=== PATIENT | female | born 1940 | race Caucasian/White ===

== ENCOUNTER 2023-04-20 10:00 | Outpatient (RCR) | payer MEDICARE, OTHER, SELFPAY | END 2023-04-20 23:59 | disposition home or self-care (01) | LOC: RPT 10:00 | PROVIDERS: ATTENDING PHYSICIAN Family Medicine | DX: M25.512 Pain in left shoulder (principal); Z73.6 Limitation of activities due to disability | CPT/HCPCS: 97010; 97110; 97161 ==

== ENCOUNTER 2023-05-20 14:58 | Outpatient (RCR) | payer MEDICARE, OTHER, SELFPAY | END 2023-05-20 23:59 | disposition home or self-care (01) | LOC: RPT 14:58 | PROVIDERS: ATTENDING PHYSICIAN Family Medicine | DX: M25.512 Pain in left shoulder (principal); Z73.6 Limitation of activities due to disability | CPT/HCPCS: 97010; 97110; 97140 ==

== ENCOUNTER 2023-06-09 11:15 | Outpatient (RCR) | payer MEDICARE, OTHER, SELFPAY | END 2023-06-09 12:36 | disposition home or self-care (01) | LOC: RPT 11:15 | PROVIDERS: ATTENDING PHYSICIAN Family Medicine | DX: M25.512 Pain in left shoulder (principal); Z73.6 Limitation of activities due to disability | CPT/HCPCS: 97010; 97110; 97140 ==

== ENCOUNTER → 2023-07-29 10:57 | Outpatient (REF) | payer MEDICARE, OTHER, SELFPAY | LOC: RAD 10:57 | PROVIDERS: ATTENDING PHYSICIAN Family Medicine | DX: I71.40 Abdominal aortic aneurysm, without rupture, unspecified (principal) | CPT/HCPCS: 76770 ==

== ENCOUNTER 2023-09-16 05:38 | Observation (INO) | payer MEDICARE, OTHER, SELFPAY ==
[2023-09-16] VITALS (10 sets, daily range): BP systolic 114–128; BP diastolic 66–93; BMI 25.1; BMI 24.3
--- NOTE | 2023-09-16 03:14 | ED.GENMED ---
History of Present Illness
General
Chief Complaint: Bowel Problem
Source: patient
Exam Limitations: none
Time Seen by Provider: 09/16/23 03:04
Nursing documentation reviewed up to this point in time: agreed with
History of Present Illness
History of Present Illness:
82-year-old female with past medical history of chronic back pain, hyperlipidemia, PUD and prior GI bleeding who presents to the emergency room for evaluation of dark stools. Patient reports that she was in her normal state of health until this
evening when she went to the bathroom hide large volume of liquid black stool. Came to the emergency room for evaluation. She says that she had similar symptoms a few years ago was treated for bleeding ulcer. She denies any nausea or vomiting.
She denies any chest pain or shortness of breath. Denies abdominal pain. She denies any dizziness. Denies any other complaints. She is on aspirin but no other blood thinners. She denies NSAID use.
Past History
Past History
ED Past Medical History: Hypercholesterolemia and Other (ocular rosacea, anxiety, chronic back pain )
ED Past Surgical History: Tonsilectomy
Social History
Tobacco: Former smoker
Alcohol: None
Drug: None
Personal: Single
Living: alone
Employment: Retired
Family History
Family History: Other (Mother with dementia, father with T-cell lymphoma, Parkinson's and prostate cancer)
Review of Systems
Review of Systems
All Other Systems: ROS reviewed and negative except as documented in HPI and ROS
Constitutional: Denies fever
Respiratory: Denies trouble breathing
Cardiac: Denies chest pain or syncope
ABD/GI: Reports diarrhea and black stools; Denies abdominal pain, nausea or vomiting
: Denies flank pain
Musculoskeletal: Denies neck pain or back pain
Neurological: Denies dizzy or headache
Phy Exam
Physical Exam
Physical Exam:
General: Awake, alert, oriented x3; no acute distress
Head: Normocephalic, atraumatic
Eyes: Conjunctiva normal
Throat: Airway intact, handling secretions
Neck: Trachea midline
Lungs: Clear to auscultation bilaterally, no wheezing, rales, rhonchi
Heart: Regular rate and rhythm, no murmurs, gallops, or rubs
Abd: Soft, non distended, nontender
Rectal: Melena in rectal vault, Hemoccult positive
Neuro: No gross deficits
Skin: no rash
Extremities: No edema in extremities, warm and well-perfused
Scores
Heart Failure Risk
Heart Failure Risk Score: Not Applicable
Heart Score for Chest Pain Patients
STEMI patient?: Not applicable
Withdrawal Assessment of Alcohol
Withdrawal Assessment Completed?: Not applicable
Course
Orders/Labs/Results
Orders:
Orders
09/16/23 03:15
Pantoprazole 80 mg/100 ml Nss [Protonix] 80 mg in 100 ml IV Q10H
09/16/23 03:24
Type+Screen Urgent
Complete Blood Count/With Diff Urgent
Comprehensive Metabolic Panel Urgent
PTT Urgent
Prothrombin Time Urgent
Abnormal Lab Results
09/16/23
03:24
RBC 4.18 L 10^6/uL
(4.20-5.40)
MCH 32.3 H pg
(27.0-31.0)
Absolute Monos (auto) 0.7 H 10^3/uL
(0.1-0.6)
Glucose 126 H mg/dl
(70-99)
09/16/23 03:24
09/16/23 03:24
Vital Signs
Initial and Last Documented VS:
Initial Vital Signs
Temp Pulse Resp BP Pulse Ox
36.6 C 98 18 124/77 99
09/16/23 03:04 09/16/23 03:04 09/16/23 03:04 09/16/23 03:04 09/16/23 03:04
Last Documented Vital Signs
Temp Pulse Resp BP Pulse Ox
36.6 C 98 18 124/77 99
09/16/23 03:04 09/16/23 03:04 09/16/23 03:04 09/16/23 03:04 09/16/23 03:04
MDM/Problems Addressed
Differential Diagnosis Includes:
Acute upper GI bleeding�could be secondary to bleeding ulcer, AVM, varices less likely with no alcohol use history
MDM/Problems Addressed:
82-year-old female presents with black stool x 1 episode large-volume tonight. No other symptoms. History of GI bleeding from PUD. Vital signs are normal, normal heart rate and blood pressure. Physical exam as above�she does have melena in the
rectal vault. Fortunately not on any blood thinners aside from a baby aspirin. Will plan to place an IV check labs including CBC and CMP, coags, type and screen. Will start PPI infusion. Plan for admission for continued treatment of acute upper
GI bleed.
Initial labs reviewed: CBC shows hemoglobin of 13.5 which we will continue to trend. CMP no clinically significant abnormalities. Vitals have been stable. Case discussed with hospitalist for admission for trending of hemoglobin and monitoring of
bleeding.
Chronic conditions affecting care:
PUD
*Pulse Oximetry
Patient hypoxic: no
*Critical Care Note
Total Time (30-74mins, 75-104mins- exclusive of procedures): Not Applicable
Data Reviewed
Review of Other/Old Records Reveals: Labs and Records
Source: patient and records
Patient Management
Discussion with other providers: Hospitalist (Discussed with hospitalist)
Escalation/DeEscalation of care consider admission/obs:
Admission indicated
ED Attending Note
-
Portions of this chart may have been created with voice recognition software.� Occasional wrong word or��sound alike� substitutions may have occurred due to the inherent limitations of voice recognition software.
Discharge Plan
Departure
Patient Disposition: Admit
Date of Disposition: 09/16/23
Time of Disposition: 04:04
Admit to doctor: Oziel
Presentation/result/management discussed w/ accepting MD/DO: Hospitalist
Discharge Problem:
Acute upper gastrointestinal hemorrhage
Prescriptions:
No Action
hydrocodone-acetaminophen 10-325 mg Tablet
1 tab PO Q8H
Patient Comments:
04/19/22 patient picked up #90 on 03/24/22
calcium carbonate-vitamin D2 600 mg calcium- 200 unit Tablet
1 tab PO DAILY
cholecalciferol (vitamin D3) 25 mcg (1,000 unit) Tablet
1,000 unit PO DAILY
cyanocobalamin (vitamin B-12) 1,000 mcg Tablet
1,000 mcg PO DAILY Qty: 90 0RF
folic acid 1 mg Tablet
1 mg PO DAILY Qty: 90 0RF
atorvastatin 40 mg Tablet
40 mg PO QPM Qty: 90 0RF
trazodone 50 MG tablet
25 mg PO HS PRN (Reason: insomnia) Qty: 30 0RF
Patient Comments:
04/21/22 - pt states that she takes very rarely, once every 3 weeks or so
polyethylene glycol 3350 17 gram Powder In Packet
17 g PO DAILY 30 Days Qty: 30 0RF
clopidogrel 75 mg Tablet
75 mg PO DAILY 19 Days Qty: 11 0RF
pantoprazole [Protonix] 40 mg Tablet,Delayed Release (Dr/Ec)
40 mg PO DAILY Qty: 90 0RF
aspirin 81 mg Tablet,Chewable
81 mg PO DAILY Qty: 90 0RF
escitalopram oxalate 20 mg tablet
20 mg PO DAILY Qty: 30 0RF
Interventions
Interventions:
*Risk Screen - Suicide Last Done: 09/16/23 03:04
*ED COVID-19 Vaccine History Last Done: 09/16/23 03:45
Discharge Date and Time
Print Language: KINYARWANDA
[2023-09-16 03:33] LABS: % Basophils 0.5 % (0-2); % Eosinophils 0.2 % (0-6); % Immature Granulocytes 0.2 % (0-0.5); % Monocytes 7.9 % (1.7-9.3); % Neutrophils 64.2 % (42.2-75.2); Absolute Lymphocytes 2.2 10^3/uL (1.2-3.4); Absolute Monocytes 0.7 10^3/uL (0.1-0.6); Absolute Neutrophils 5.3 10^3/uL (1.4-6.5); Hemoglobin 13.5 g/dL (12.0-16.0); Mean Corp Hgb Conc. 34.6 g/dL (33.0-37.0); Mean Corpuscular Hgb 32.3 pg (27.0-31.0); Mean Corpuscular Volume 93.3 fL (81.0-99.0); Mean Platelet Volume 9.4 fL (7.4-10.4); Nucleated Red Blood Cells % 0 %; Platelet Count 271 10^3/uL (130-400); Red Blood Cell Count 4.18 10^6/uL (4.20-5.40); Red Cell Dist. Width 13.6 % (11.5-14.5); White Blood Cell Count 8.2 10^3/uL (4.8-10.8)
[2023-09-16] MEDS: PROTONIX 100 IV (03:37)
[2023-09-16 03:50] LABS: ALT (SGPT) 13 U/L (0-35); AST (SGOT) 24 U/L (14-36); Albumin 4.3 g/dl (3.5-5.0); Alkaline Phosphatase 51 U/L (38-126); Blood Urea Nitrogen 17 mg/dl (7-17); Calcium 9.3 mg/dl (8.4-10.2); Carbon Dioxide 22 mmol/L (22-30); Chloride 103 mmol/L (98-107); Estimated Creatinine Clearance 41 ml/min; Glucose 126 mg/dl (70-99); Sodium 135 mmol/L (135-145); Total Bilirubin 0.6 mg/dl (0.2-1.3); Total Protein 7.6 g/dl (6.3-8.2); eGFR > 60.00
[2023-09-16 04:00] LABS: APTT 25.9 Sec (23.4-35.0); INR 1.04; PT 13.6 Sec (11.4-14.6)
--- NOTE | 2023-09-16 04:42 | HPS.HSE ---
Family Physician
-
Family Physician: Neto Zamora, DO
Chief Complaint
-
Black stools
History of Present Illness
Patient is an 82y F with PMH significant for CVA, chronic pain / osteoporosis and history of duodenal ulcer who presents to ED complaining of general malaise and dark, liquid stools. Patient states that she has been feling somewhat 'lousy' for
the past few days. She was seen by her PCP today and had an unremarkable evaluation - including labs done at that time.
This afternoon, she had a small, black and tarry bowel movement. Later in the evening, patient had crampy lower abdominal pain followed by a large, liquid, black bowel movement.
She noted diaphoresis and some nausea - though she had no emesis.
She denies lightheadedness or syncope.
Patient presented to the ED for further evaluation. At present she is resting comfortably. No further stools since arrival here.
Patient notes prior history of similar symptoms in 2018. Noted at that time to have duodenal ulcers which were attributed to NSAID usage.
Patient denies any recent use of NSAIDs. She states that she made very spicy chili several days ago - which is atypical for her.
Medical History
Past Medical History
Past Medical History: Reports Other
Additional Past Medical History:
ASCVD / CVA
Osteoporosis
Chronic Pain / Multiple Vertebral Compression Fractures
Anxiety / Depression
GERD / Duodenal Ulcers
Rosacea
Malignant Melanoma
Past Surgical History: Reports Other
Additional Past Surgical History:
T&A
Skin Cancer Excision
Social History
Tobacco: Former Smoker (Quit smoking over 60 years ago.)
Alcohol: None
Drug: None
Family History
Family History: Not pertinent
Allergies / Home Medications
Allergies reflects when Allergies were last updated in [employer].
Home Medications with original date entered in [employer]
Allergy/Medication List:
Patient cannot recall her current medications - other than [place] 10mg PO q8 hours scheduled.
If medication reconciliation has not been performed, why?: Medication List N/A
Review of Systems
-
History Source: Patient
A 12 point ROS was completed and negative except as noted: Yes
Constitutional: Reports Fatigue; Denies Fever or Chills
Respiratory: Denies Cough or Trouble Breathing
Cardiac: Reports Diaphoresis; Denies Chest Pain or Palpitations
Abdomen/GI: Reports Abdominal Pain, Nausea, Diarrhea and Black Stools; Denies Vomiting, Bloody Stools or Anorexia
: Denies Dysuria, Frequency or Flank Pain
Musculoskeletal: Denies Joint Pain or Edema
Neurological: Denies Dizzy or Headache
Psych: Denies Depression or Anxiety
Physical Exam
Vital Signs
Vital Signs
Temp Pulse Resp BP Pulse Ox
97.9 F 94 17 125/78 95
09/16/23 03:04 09/16/23 04:00 09/16/23 04:00 09/16/23 04:00 09/16/23 04:00
Physical Exam
General: Other (82y F in no acute distress.)
HEENT: Moist mucous membranes and PERRLA
Respiratory: Clear; No Wheezes, Rales or Rhonchi
Cardiac: S1/S2 and Regular Rhythm
GI: Soft, Non Distended, Normal Bowel Sounds and Other (Mild tenderness appreciated in the RUQ and LLQ. No rebound / guarding.)
Musculoskeletal: No Clubbing, No Cyanosis and No Edema
Neuro: AO x 3
Laboratory Results
-
09/16/23 03:24
09/16/23 03:24
Laboratory Results
PT 13.6 Sec (11.4-14.6) 09/16/23 03:24
INR 1.04 09/16/23 03:24
APTT 25.9 Sec (23.4-35.0) 09/16/23 03:24
Total Bilirubin 0.6 mg/dl (0.2-1.3) 09/16/23 03:24
AST 24 U/L (14-36) 09/16/23 03:24
ALT 13 U/L (0-35) 09/16/23 03:24
Alkaline Phosphatase 51 U/L (38-126) 09/16/23 03:24
Impression/Plan
-
A/P: Patient is an 82y F with PMH significant for duodenal ulcers / GERD and prior CVA who presents to ED complaining of black, watery stools.
Melena / GI Bleed
GERD / History of Duodenal Ulcers
- Admit for further evaluation and treatment.
- Described symptoms seem most c/w upper GI source of bleeding - though vitals and Hgb stable / BUN is unremarkable.
- Follow for any additional stools during stay.
- Continue PPI infusion started in the ED.
- GI evaluation for additional recommendations / possible endoscopic eval.
- Follow H&H for any changes and transfuse PRBCs if indicated.
ASCVD / Prior CVA
- Patient reports some minor memory issues following stroke in 2022.
- Unclear of current meds - but on at least ASA daily.
- Hold all PO meds for now - pending accurate med rec.
- Follow for any new complaints.
Osteoporosis
Multiple Vertebral Compression Fractures
Chronic Pain Syndrome / Chronic Opioid Dependence secondary to the above
- Stable. No new / worsened pain issues per patient.
- Continue standing [place] dosing (confirmed via PDMP).
- Follow for any changes.
DVT Prophylaxis: SCDs
Code Status: Full
[2023-09-16 07:24] LABS: Hematocrit 37.5 % (37.0-47.0); Hemoglobin 12.9 g/dL (12.0-16.0)
--- NOTE | 2023-09-16 07:42 | CON.GI ---
Addendum entered and electronically signed by Aylin Sousa DO 09/16/23 10:07:
I saw and examined the patient.
The SILK BLOCKER or PA's note was reviewed and I agree with the note.
Comment: Briefly, 82 y.o. female with history of DU 2/2 NSAID use admitted with reports of black tarry stool. Admits to waot of stress, daughter just moved to [place]. Labs and vital signs reassuring without signs of GI bleeding with normal
hemoglobin, BUN and iron studies. Rectal exam with brown stool. At this time, I do not feel patient is having an active GI bleed. Recommend PO PPI and advance diet. No plans for endoscopy.
GI will sign off. Okay to discharge from a GI perspective. Please call with questions.
Original Note:
Consultation
-
Date/Time Consultation Requested: 09/16/23 @ 06:45
Date/Time Consultation Performed: 09/16/23 @ 07:45
Requesting Provider: Dr. Ludwig
Performing Provider: CORI Fuentes; Dr. Aylin Sousa
Reason for Consultation: UGI bleed
Medical History
Chief Complaint / HPI
Chief Complaint: black stools
History of Present Illness:
The patient is an 82-year-old female with a past medical history significant for CVA, chronic pain syndrome with history of compression fractures, osteoporosis, history of duodenal ulcer, anxiety, depression, GERD, malignant melanoma, who presented
to the emergency room with complaints of black stools with generalized malaise. We are being asked to evaluate for concern for possible upper GI bleed. Upon review of prior records, she underwent EGD in 2018 after being hospitalized for
coffee-ground emesis with concern for upper GI bleed. Her EGD did show 2 nonbleeding duodenal ulcers and acquired duodenal stenosis along with chronic gastritis. She has been taking Motrin leading up to her admission. At that time was advised to
continue on PPI twice daily and abstain from NSAIDs. Her hemoglobin was as low as 8.1. Upon review of outpatient records, she was seen by our physician care management assistant Heather in June in the office for a routine follow-up. She had continued on
pantoprazole 40 mg daily as previously recommended in the past and was having no symptoms with this. She is scheduled to follow-up with Dr. Núñez to establish care with a new provider as Dr. Erazo has retired. Today she reports that 2 days
ago she was feeling 'funny.' Yesterday in the morning she had a small formed but black stool ball that appeared tarry. She then went to her PCP for an evaluation which she reports her physical exam was unrevealing. She notes that she went home
and had been feeling very tired. She went to bed but then awoke around 1 AM and had the urge to have a bowel movement. She notes that when she looked in the toilet it was full liquid and appeared black in color with no formed stools. She
therefore came to the emergency room given her history of bleeding duodenal ulcers. She does note she did eat spicy chili the week prior to her symptoms. She admits to some discomfort in the LLQ but no epigastric or RUQ discomfort. She denies any
Pepto-Bismol use or iron pills, but also reports having drank blackberry tea which was very dark in color. She continues on pantoprazole 40 mg daily with good effect. She does admit to feeling queasy, but denies any nausea, vomiting, heartburn,
dysphagia, odynophagia, chest pain, shortness of breath, dizziness, or lightheadedness. She notes that she does have some intermittent constipation and will take Senokot as needed. She notes that she did this last 10 days ago but primarily moves
her bowels every day to every other day. She does take [place] chronically for chronic pain which she takes 3 times a day. She denies any recent travel, recent antibiotics, changes in medications, or recent viral illnesses. She denies any use of
NSAIDs aside from 81mg of aspirin for hx of CVA. She is not on Plavix. Last EGD and colonoscopy as noted below. She reports family history of colon cancer of her father. In the ER, she had a rectal exam which showed melena and was heme positive
per ER physician documentation pertinent lab findings on admission showed a hemoglobin of 13.5, platelets 271,000, INR 1.04, sodium 135, potassium 4.0, BUN 17, creatinine 0.9, serum iron 80, and LFTs within normal limits. She was made n.p.o. and
admitted for further evaluation by GI. A PPI drip was also started.
Past Medical History
Past Medical History: CVA, GERD, Psychiatric (Anxiety, depression) and Other (History of GI bleed 2/2 duodenal ulcer in 2018, chronic pain syndrome on chronic opiates, malignant melanoma)
Past Surgical History: Other (skin cancer excision, T&A)
Social History
Tobacco: Former Smoker
Alcohol: None
Drug: None
Living: Alone
Family History
Family History: Cancer (Father-colon cancer)
Allergies / Home Medications
Allergy/AdvReac Type Severity Reaction Status Date / Time
Iodinated Contrast Media Allergy Unknown Verified 09/16/23 03:04
[IV Dye, Iodine Containing]
povidone-iodine Allergy Unknown Verified 09/16/23 03:04
[From Betadine]
red dye [Red Dye] Allergy Unknown Verified 09/16/23 03:04
soap [From Betadine] Allergy Unknown Verified 09/16/23 03:04
�Medication �Instructions �Recorded
hydrocodone 10 mg-acetaminophen 1 tab PO Q8H Pain 04/19/22
325 mg tablet
calcium carb-ergocalciferol (vit 1 tab PO DAILY Supplement 04/21/22
D2) 600 mg calcium-200 unit tablet
cholecalciferol (vitamin D3) 25 1,000 unit PO DAILY Supplement 04/21/22
mcg (1,000 unit) tablet
atorvastatin 40 mg tablet 40 mg PO QPM #90 tabs 04/30/22
clopidogrel 75 mg tablet 75 mg PO DAILY for 21 days 19 days 04/30/22
#11 tabs
cyanocobalamin (vitamin B-12) 1,000 mcg PO DAILY #90 tabs 04/30/22
1,000 mcg tablet
escitalopram oxalate 20 mg tablet 20 mg PO DAILY Mental 04/30/22
Health/Anxiety #30 tabs
folic acid 1 mg tablet 1 mg PO DAILY #90 tabs 04/30/22
pantoprazole 40 mg tablet,delayed 40 mg PO DAILY Reflux #90 tabs 04/30/22
release (Protonix)
polyethylene glycol 3350 17 gram 17 g PO DAILY 30 days #30 ea 04/30/22
oral powder packet
trazodone 50 mg tablet 25 mg (1/2 x 50 mg) PO HS PRN 04/30/22
insomnia #30 tabs
Review of Systems
-
History Source: Patient
Constitutional: Reports No Symptoms
EENT: Reports No Symptoms
Respiratory: Reports No Symptoms
Cardiac: Reports No Symptoms
Abdomen/GI: Reports Abdominal Pain (LLQ ) and Black Stools
: Reports No Symptoms
Musculoskeletal: Reports Other (chronic back pain)
Skin: Reports No Symptoms
Neurological: Reports No Symptoms
Endocrine: Reports No Symptoms
Hematologic/Lymphatic: Reports No Symptoms
Vital Signs
Temp Pulse Resp BP Pulse Ox
98.4 F 95 15 121/93 100
09/16/23 07:07 09/16/23 06:30 09/16/23 06:30 09/16/23 06:30 09/16/23 06:30
Physical Exam
Exam
General: Well Developed, Well Nourished, No Apparent Distress and Comfortable
HEENT: Normocephalic, Anicteric and Atraumatic
Respiratory: Clear
Cardiac: S1/S2 and Regular Rhythm
Breast: Deferred by me
GI: Soft, Non Tender, Non Distended and Normal Bowel Sounds
Rectal: Brown
Musculoskeletal: No Edema
Skin: Warm and Dry
Neuro: Awake and Alert
Psych: Calm
Results
WBC 8.2 10^3/uL (4.8-10.8) 09/16/23 03:24
Hgb 12.9 g/dL (12.0-16.0) 09/16/23 07:03
Hct 37.5 % (37.0-47.0) 09/16/23 07:03
MCV 93.3 fL (81.0-99.0) 09/16/23 03:24
Plt Count 271 10^3/uL (130-400) 09/16/23 03:24
Absolute Neuts (auto) 5.3 10^3/uL (1.4-6.5) 09/16/23 03:24
PT 13.6 Sec (11.4-14.6) 09/16/23 03:24
INR 1.04 09/16/23 03:24
APTT 25.9 Sec (23.4-35.0) 09/16/23 03:24
Sodium 135 mmol/L (135-145) 09/16/23 03:24
Potassium 4.0 mmol/L (3.5-5.1) 09/16/23 03:24
Chloride 103 mmol/L (98-107) 09/16/23 03:24
Carbon Dioxide 22 mmol/L (22-30) 09/16/23 03:24
BUN 17 mg/dl (7-17) 09/16/23 03:24
Creatinine 0.9 mg/dL (0.6-1.0) 09/16/23 03:24
Calcium 9.3 mg/dl (8.4-10.2) 09/16/23 03:24
Total Bilirubin 0.6 mg/dl (0.2-1.3) 09/16/23 03:24
AST 24 U/L (14-36) 09/16/23 03:24
ALT 13 U/L (0-35) 09/16/23 03:24
Alkaline Phosphatase 51 U/L (38-126) 09/16/23 03:24
Prior GI Procedures:
EGD: 02/15/2018 Dr. Desai: Z-line irregular, 38 cm from the incisors. Chronic gastritis. Biopsied. One non-bleeding duodenal ulcer with no stigmata of bleeding. One non-bleeding duodenal ulcer with granular tissue. Acquired duodenal stenosis
Colonoscopy: 11/16/2016 Dr. Erazo: Mild diverticulosis in the sigmoid colon and in the descending colon. Non-bleeding internal hemorrhoids.
Assessment / Plan
-
The patient is an 82-year-old female with a past medical history significant for CVA, chronic pain syndrome with history of compression fractures, osteoporosis, history of duodenal ulcer, anxiety, depression, GERD, malignant melanoma, who presented
to the emergency room with complaints of black stools with generalized malaise. We are being asked to evaluate for concern for possible upper GI bleed with melena and heme +stool upon ER evaluation with a stable hgb of 12.9 and normal BUN. Rectal
exam today showing brown stool. She is hemodynamically stable with a normal hgb and no active signs of bleeding. She denies NSAID use. She is compliant with her PPI. She denies UGI complaints.
Problem list:
-Melena; now brown on rectal exam
-hx duodenal ulcers, GI bleed in 2018 on chronic PPI
-GERD
-CVA on aspirin
-chronic pain syndrome on chronic opiates
Other pertinent medical hx:
-anxiety
-depression
-osteoporosis
-prior compression fractures
-malignant melanoma
-family hx of colon cancer
Recommendations:
-Etiology of black stool possibly from dietary changes (black cevallos tea, chili) v less likely UGI bleed given her normal hgb and BUN v infectious etiology v other.
-At this time given her brown stool on rectal exam and otherwise normal labs/hemodynamic stability, would advance her diet and monitor for any recurrent melena
-If she has diarrhea, can send stool studies
-Continue PPI once daily as per prior outpatient dosing, stop PPI gtt
-Regular, Low acid diet for reflux management
-She should continue to avoid NSAID's. OK for ASA 81mg for cardiac/stroke purposes.
-She should ensure regular, daily bowel movements. She may benefit from a daily stool softener given her chronic narcotic use
-Will have her follow-up OP in 2 months time (she has an appt in early November which she can keep)
-OK for d/c from a GI standpoint in the AM if her hgb remains stable and she has no further melena
-No further GI recommendations at this time, will sign off please call back with questions or concerns.
Data Reviewed
-
Old Records: Reviewed
-
-
Thank you for consultation and allowing me to participate in the patient's care. Please call the nurses' association executive director GI physician during the after hours with any questions or concerns.
[2023-09-16 07:47] LABS: Iron 80 ug/dl (37-170)
--- NOTE | 2023-09-16 07:49 | W.PN.HOSP.TC ---
Addendum entered and electronically signed by Reese Ellison DO 09/16/23 12:57:
Appreciate GI input.
No evidence of GI bleed.
Iron panel normal.
Medically stable for discharge today. Recommend outpatient follow-up next week with primary care doctor. Continue Protonix once a day on discharge.
All above discussed with patient. All questions answered.
Original Note:
Today's Communication/Plan
-
N.p.o.
GI consult
Updated admission medication list
Assessment / Plan
Assessment / Plan
Gen-AAOx3, NAD
HEENT-NC, AT, anicteric, clear oral mm
Neck-supple
CV-reg, no M, +S1/S2
Lungs-clear B/L
Abd-soft, mild left-sided tenderness, nondistended
Ext-no edema
Musculoskeletal-no cyanosis, clubbing
Skin-warm and dry
Neuro-grossly non-focal
Psych-calm, cooperative
Acute GI bleed -upper versus lower, etiology unclear so far. Presentation with black liquid stool and bloating. Hemodynamically stable. Hemoglobin 12.9 this morning. Normal BUN argues against upper GI bleed. Does have a history of duodenal
ulcer however. Last EGD 2018 last colonoscopy unknown.
Continue n.p.o., consult GI. Currently on IV Protonix.
History of duodenal ulcers/GERD
History of stroke -on aspirin.
Osteoporosis
Chronic pain syndrome/chronic opiate dependence
Multiple vertebral compression fractures
Anxiety/depression
Malignant melanoma
Rosacea
Full code
Anticipated Discharge: > 48 hours
Subjective/Interval History
-
Date of Service: September 16, 2023
Patient seen and examined. Overall feeling better. Denies abdominal pain currently.
Objective Data
-
Labs:
Laboratory Results
07/09/16/23 09/16/23
03:24 07:03 12:45
WBC 8.2
Hgb 13.5 12.9 Pending
Hct 39.0 37.5 Pending
Plt Count 271
PT 13.6
INR 1.04
APTT 25.9
Sodium 135
Potassium 4.0
Chloride 103
Carbon Dioxide 22
BUN 17
Creatinine 0.9
Glucose 126 H
Calcium 9.3
Total Bilirubin 0.6
AST 24
ALT 13
Alkaline Phosphatase 51
09/16/23
18:45
WBC
Hgb Pending
Hct Pending
Plt Count
PT
INR
APTT
Sodium
Potassium
Chloride
Carbon Dioxide
BUN
Creatinine
Glucose
Calcium
Total Bilirubin
AST
ALT
Alkaline Phosphatase
Vital Signs:
Vital Signs
Temp Pulse Resp BP Pulse Ox
98.4 F 95 15 121/93 100
09/16/23 07:07 09/16/23 06:30 09/16/23 06:30 09/16/23 06:30 09/16/23 06:30
Review of Systems
-
History Source: Patient
All other systems: Reviewed and negative
[2023-09-16] MEDS: NORCO 5/325 2 TABLET PO (07:54)
[2023-09-16 07:56] LABS: Percent Saturation 26 % (20-50); Total Iron Binding Capacity 305 ug/dl (265-497)
--- NOTE | 2023-09-16 09:11 | PTCARENOTE ---
pt received from previous rn aox3, on room air,nsr on monitor. denies any pain or has complaints at this time. protonix gtt d/c. poc discussed with gi and dr. apple, pt downgraded to [facility].
--- NOTE | 2023-09-16 10:01 | CM ---
Addendum entered by Vincenzo Omalley 09/16/23 13:15:
Discharge order noted. pt's admission status has been changed from inpatient to OBS. OBS status explained to the pt, pt expressed her understanding. [facility] letter reviewed, placed on chart, pt has a copy. Pt stated she would like to have home PT at
home and she preferred [facility]. A referral to [facility] made.
Pt stated that [facility] home care staff will transport her home. CM spoke to [facility] care field representative [phone] and she confirmed they provide caregiver services 3 times per week and they will transport pt home today.
Please fax discharge instructions to [facility] at [phone]
D/C plan: home with [facility] and resumptions of caregiver services provided by [facility].
Original Note:
CM following re: discharge planning.
Reviewed pt's chart, met with pt.
Pt is an 82 year old female, admitted with primary dx of GI Bleed.
From 1st minutes of interaction with the pt she stated right away: 'i hate my , he is [place], he is gone, estrange with him and he lives in [place]'. Pt went on and off expressing her negative experience with her relationship. Emotional
support offered and provided. Pt reports she lives alone in a 2SH townhouse, has a daughter and she lives in [place] and per pt she feels that pt's stays with the daughter. Pt reports she ambulates with [facility], has [facility] services. Pt
expressed her desire to return back home with [facility] home care services. Pt stated that [facility] home care nurse comes 3 times per week.
PCP: Neto Zamora
Pharmacy: [facility] [place]
D/C plan: home with resumptions of [facility] home care services.
CM will follow with discharge plan updates as hospitalization progresses
--- NOTE | 2023-09-16 12:59 | W.DS.TRANS ---
DC Summary - Thread Grinder
-
Discharge Instructions:
Discharge Diagnosis/Procedures GI bleed ruled out
Diet Regular
Activity As tolerated
Driving Restrictions As prior to admission
Bathing Restrictions None
Instructions:
Stand-Alone Forms:
Changes to Home Medications: No
Discharge Medications:
DC Medications w/original date entered in [facility]
calcium carb-ergocalciferol (vit D2) 600 mg calcium-200 unit tablet 1 tab PO DAILY Supplement 04/21/22
cholecalciferol (vitamin D3) 25 mcg (1,000 unit) tablet 1,000 unit PO DAILY Supplement 04/21/22
atorvastatin 40 mg tablet 40 mg PO QPM #90 tabs 04/30/22
cyanocobalamin (vitamin B-12) 1,000 mcg tablet 1,000 mcg PO DAILY #90 tabs 04/30/22
escitalopram oxalate 20 mg tablet 20 mg PO DAILY Mental Health/Anxiety #30 tabs 04/30/22
folic acid 1 mg tablet 1 mg PO DAILY #90 tabs 04/30/22
pantoprazole 40 mg tablet,delayed release (Protonix) 40 mg PO DAILY Reflux #90 tabs 04/30/22
polyethylene glycol 3350 17 gram oral powder packet 17 g PO DAILY 30 days #30 ea 04/30/22
Home Medication Changes
Pending Results: No
--- NOTE | 2023-09-16 14:00 | VNURNOTE ---
[facility] liaison met with patient to explain services, frequency of visits, purpose, homebound status. Patient is declining PT, OT. She wants to think about receiving nursing. She confirms she has had our services in the past. She is current with
[facility]. Patient aware that [facility] nurses will contact her within a few days after discharge. Referral placed in [facility], [facility] Intake notified.
--- NOTE | 2023-09-16 15:02 | PTCARENOTE ---
pt home care nurse mike at bedside- given discharge instructions- both verbalized understanding. int removed- site c/d/i. oob to chair and ambulating in room.per dr. ambika lee to continue norco at home script-pt and nurse verbalized understanding.
wheelchair down by another rn.
== END 2023-09-16 15:11 | disposition home or self-care (01) ==
LOC: ICU 05:38
PROVIDERS: ADMITTING PHYSICIAN Hospitalist; ATTENDING PHYSICIAN Hospitalist; CONSULT PHYSICIAN Internal Medicine; EMERGENCY PHYSICIAN Emergency Medicine; FAMILY PHYSICIAN Family Medicine
DX: R19.5 Other fecal abnormalities (principal); G89.4 Chronic pain syndrome; E78.00 Pure hypercholesterolemia, unspecified; F41.9 Anxiety disorder, unspecified; R53.81 Other malaise; R10.30 Lower abdominal pain, unspecified; R61 Generalized hyperhidrosis; R11.0 Nausea; R19.7 Diarrhea, unspecified; I25.10 Atherosclerotic heart disease of native coronary artery without angina pectoris; F32.A Depression, unspecified; K21.9 Gastro-esophageal reflux disease without esophagitis; F11.20 Opioid dependence, uncomplicated; M81.0 Age-related osteoporosis without current pathological fracture; E78.5 Hyperlipidemia, unspecified; Z87.11 Personal history of peptic ulcer disease; Z79.02 Long term (current) use of antithrombotics/antiplatelets; Z79.82 Long term (current) use of aspirin; Z87.891 Personal history of nicotine dependence; Z86.73 Personal history of transient ischemic attack (TIA), and cerebral infarction without residual deficits; Z85.820 Personal history of malignant melanoma of skin; Z80.0 Family history of malignant neoplasm of digestive organs
CPT/HCPCS: 80053; 83540; 83550; 85014; 85018; 85025; 85610; 85730; 86850; 86900; 86901; 96365; 96366; 99284; G0378

== ENCOUNTER 2023-10-05 10:26 | Inpatient (IN) | payer MEDICARE, OTHER, SELFPAY ==
[2023-10-05] VITALS (50 sets, daily range): BP systolic 83–160; BP diastolic 47–102; BMI 24.8
[2023-10-05 09:21] LABS: Glucose - Point of Care 146 mg/dl (70-99)
[2023-10-05 09:41] LABS: % Basophils 1.1 % (0-2); % Eosinophils 2.5 % (0-6); % Immature Granulocytes 0.3 % (0-0.5); % Lymphocytes 35.2 % (20.5-51.1); % Monocytes 8.8 % (1.7-9.3); % Neutrophils 52.1 % (42.2-75.2); Absolute Basophils 0.1 10^3/uL (0-0.2); Absolute Eosinophils 0.2 10^3/uL (0-0.7); Absolute Lymphocytes 2.7 10^3/uL (1.2-3.4); Absolute Monocytes 0.7 10^3/uL (0.1-0.6); Absolute Neutrophils 3.9 10^3/uL (1.4-6.5); Hematocrit 34.4 % (37.0-47.0); Hemoglobin 11.7 g/dL (12.0-16.0); Mean Corpuscular Hgb 32.4 pg (27.0-31.0); Mean Corpuscular Volume 95.3 fL (81.0-99.0); Mean Platelet Volume 9.5 fL (7.4-10.4); Nucleated Red Blood Cells % 0 %; Platelet Count 308 10^3/uL (130-400); Red Blood Cell Count 3.61 10^6/uL (4.20-5.40); Red Cell Dist. Width 13.9 % (11.5-14.5); White Blood Cell Count 7.5 10^3/uL (4.8-10.8)
--- NOTE | 2023-10-05 09:44 | ED.GENMED ---
History of Present Illness
General
Chief Complaint: Change in Mental Status
Source: patient and other (PT staff, Monique)
Exam Limitations: clinical condition
Time Seen by Provider: 10/05/23 09:30
History of Present Illness
History of Present Illness:
83-year-old female who presents from physical therapy after they noted her to have difficulty with her speech. She drove to physical therapy and had reports of back discomfort and dizziness. She suddenly began to have difficulty with her speech as
per staff. Physical therapy staff is at bedside to give this history. The patient is really unable to give history due to her aphasia.
Past History
Past History
ED Past Medical History: CVA, Hypercholesterolemia and Other (ocular rosacea, anxiety, chronic back pain, Raynaud's, diverticulosis, GI bleed )
ED Past Surgical History: Tonsilectomy
Social History
Tobacco: Former smoker
Alcohol: None
Drug: None
Personal: Single
Living: alone
Employment: Retired
Family History
Family History: Other (Mother with dementia, father with T-cell lymphoma, Parkinson's and prostate cancer)
Phy Exam
Physical Exam
Physical Exam:
CONSTITUTIONAL Patient alert. Well-appearing. Vital signs reviewed.
HEAD atraumatic, normocephalic.
EYES eyelids normal to inspection, Pupils equally round and reactive to light, Extraocular muscles intact, Conjunctiva normal, Sclera normal.
NECK normal range of motion, Trachea midline, no jugular venous distention.
RESPIRATORY CHEST No respiratory distress noted, Chest expansion equal, Bilateral breath sounds clear.
CARDIOVASCULAR regular rate and rhythm, Heart sounds normal.
ABDOMEN No distention.
BACK normal inspection, no obvious deformities
UPPER EXTREMITY range of motion normal, Motor strength normal, no cyanosis, no edema.
LOWER EXTREMITY range of motion normal, Motor strength normal, no cyanosis, no edema.
NEURO patient has a profound aphasia. No noted cranial nerve deficits. No noted focal motor deficits.
SKIN skin warm, dry, and normal in color.
Course
Orders/Labs/Results
Orders:
Orders
10/05/23 09:28
CT Head W/o Cont STROKE ALERT Urgent
Reason For Exam: change in mental status
10/05/23 09:29
CMP [Comprehensive Metabolic Panel] Urgent
Complete Blood Count/With Diff Urgent
Glycohemoglobin (HgbA1c) Urgent
Magnesium Urgent
Comment: ADD ON
PTT Urgent
Comment: ADD ON
10/05/23 09:38
Diphenhydramine [Benadryl] 50 mg .ROUTE .STK-MED ONE
Hydrocortisone Sod Succinate [Solu-Cortef] 200 mg .ROUTE .STK-MED ONE
10/05/23 09:41
Tenecteplase [Tnkase] 16 mg Syringe [Syringe Non-Pump] 0 ml IV NOW
Provider explained risk/benefits to patient &/or caregiver?: Yes
10/05/23 09:47
Admit Patient As Directed
Co-Sign Provider:
Level of Care: Inpatient admission
Assign to:: ICU
Physician / Group: Dr. Joanna CORTEZ/Hospitalist
Diagnosis: CVA s/p TNK
Reason for Hospitalization: CVA s/p TNK
Expected length of stay greater than two midnights?: Yes
ELOS- Estimated Length of Stay in days: 3
I certify the patient meets the requirements for IP care: Yes
10/05/23 09:48
Sequential Compression Device [Pneumatic Compression Sleeves] As Directed
Type: Knee high
PRN Pain Medication Management As Directed
May give lesser potent ordered pain med per pt: Yes
preference::
Protocol:: Medication orders for pain may be administered in a
manner that supports deferring to patient preference
when the pt is:
- Requesting an ordered lesser potent pain medication.
Least to most potent pain medications are defined
as: acetaminophen < NSAID < tramadol < opioids
(morphine, oxycodone, hydromorphone).
- Requesting a lesser dose of the same medication IF
ORDERED.
- Requesting a less intrusive route of administration
if both routes are prescribed by the provider (PO <
IV).
DX Deep Vein Thrombosis Video Routine
10/05/23 10:00
Lidocaine [Lidocaine 4% Patch] 1 patch TOPICAL DAILY
Apply Lidocaine patch(s) to:: back
10/05/23 10:07
Prothrombin Time Urgent
10/05/23 10:08
MR Brain Without Contrast Routine
Comment:
Reason For Exam: Aphasia
Recent pill cam endoscopy?: No
10/05/23 10:09
MA [place] Routine
Comment:
Reason For Exam: intracranial stenosis
Recent pill cam endoscopy?: No
MA Neck With Contrast Routine
Reason For Exam: stenosis
Recent pill cam endoscopy?: No
10/05/23 22:00
Remove Patch [Remove Lidocaine Patch] See Dose Instructions REMOVE DAILY@1999
Abnormal Lab Results
10/05/23 10/05/23
09:20 09:29
RBC 3.61 L 10^6/uL
(4.20-5.40)
Hgb 11.7 L g/dL
(12.0-16.0)
Hct 34.4 L %
(37.0-47.0)
MCH 32.4 H pg
(27.0-31.0)
Absolute Monos (auto) 0.7 H 10^3/uL
(0.1-0.6)
BUN 19 H mg/dl
(7-17)
Glucose 126 H mg/dl
(70-99)
POC Glucose 146 H mg/dl
(70-99)
10/05/23 09:29
10/05/23 09:29
Vital Signs
Initial and Last Documented VS:
Initial Vital Signs
Pulse Resp Pulse Ox
81 16 97
10/05/23 09:21 10/05/23 09:21 10/05/23 09:21
Last Documented Vital Signs
Temp Pulse Resp BP Pulse Ox
98.6 F 66 16 123/64 99
10/05/23 11:11 10/05/23 13:25 10/05/23 13:25 10/05/23 13:00 10/05/23 10:45
MDM/Problems Addressed
MDM/Problems Addressed:
Acute CVA
*Radiology
Radiology exam reviewed: preliminary read by ED provider (No obvious hemorrhage)
*Pulse Oximetry
Patient hypoxic: no
*Mold Press Operator Interpretation
Rate: normal
Interpretation: normal
Rhythm: sinus
*Critical Care Note
Total Time (30-74mins, 75-104mins- exclusive of procedures): 40 minutes
Data Reviewed
Review of Other/Old Records Reveals: Discharge Summary (From August 2023. History of duodenal ulcers)
Source: patient and other (Jackie, physical therapist)
Patient Management
Discussion with other providers: Hospitalist and Commercial Credit Analyst (Case discussed with Dr. Yeboah)
Escalation/DeEscalation of care consider admission/obs:
83-year-old female who presents with what appears to be an acute CVA as evidenced by her aphasia. Staff members did accompany her to the emergency department at bed side to provide accurate information. Clearly appears the patient had acute onset
just prior to arrival. Patient profoundly aphasic but no motor deficits. Neurology at bedside who recommends TNK. Admit to ICU
ED Attending Note
-
Portions of this chart may have been created with voice recognition software.� Occasional wrong word or��sound alike� substitutions may have occurred due to the inherent limitations of voice recognition software.
Discharge Plan
Departure
Patient Disposition: Admit
Date of Disposition: 10/05/23
Time of Disposition: 09:45
Admit to: ICU
Presentation/result/management discussed w/ accepting MD/DO: Hospitalist
Discharge Problem:
Aphasia, Acute CVA (cerebrovascular accident)
Interventions
Interventions:
*Risk Screen - Suicide Last Done: 10/05/23 11:34
*General Assessment Last Done: 10/05/23 09:21
*Neglect/Abuse Screening Last Done: 10/05/23 09:21
ED- Fall Risk Assessment Last Done: 10/05/23 10:43
*ED COVID-19 Vaccine History Last Done: 10/05/23 09:21
*Nursing Disposition Last Done: 10/05/23 10:43
ED- Pulmonary Assessment Last Done: 10/05/23 10:43
ED-Psychological Assessment Last Done: 10/05/23 10:43
ED- Neurological Assessment Last Done: 10/05/23 09:41
ED- Cardiac Assessment Last Done: 10/05/23 10:43
Discharge Date and Time
Discharge Date/Time: 10/05/23 10:44
--- NOTE | 2023-10-05 09:46 | CON.NEURO ---
Neuro Assessment/Plan
Assessment
Abrupt onset of acute ischemic stroke
Most likely due to thromboembolic event as well as mild hypertension and hypercholesterolemia with prior stroke involving the left centrum semiovale in March 2022
Patient was not a candidate for intra-arterial thrombectomy due to MR S score of 3
Plan
Recommendations:
� administer IV Tenecteplase (TNK) per protocol urgently while keeping patient's blood pressure to a goal of systolic less than 185 and diastolic less than 110 mmHg during infusion of TNK
� place the patient in medical ICU
� goal blood pressure over the next 24 hours would be less than 180/105 mmHg
� check MRI of the brain within 22-32 hours of TNK without contrast for localization of the stroke
� check �MRA of the head with and without contrast and an MRA of the neck with contrast
� hold all antiplatelets, OAC meds, DOAC meds, heparinoids for next 24 hours
� check lipid panel and hemoglobin A1c
� start atorvastatin 80 mg at bedtime
� goal blood glucose levels for patient would be less than 180 mg/dL
� Speech, PT, OT evaluations needed
� DVT prophylaxis with sequential compression devices over next 24 hours, can be started on Enoxaparin subcutaneous for DVT prophylaxis beginning 24 hours after TNK provision.
� medical educational materials will be provided
� check an echocardiogram
Total Critical Care Time= 45 minutes.
The neurological system is affected and the action required by me to prevent further deterioration or potential was control over the item listed first in the Impressions and Recommendations section of this note.
I was present and personally examined the patient. I discussed patient care with other professional health care providers.
Also discussed with family by phone.
We will follow.
Consultation
Order
Date of Consultation: 10/05/23
Requesting Provider: Emergency department physician
Reason for Consult: Stroke alert
Subjective/Objective
Subjective Data
Date of Service: October 05, 2023
Unknown handed
Adapted from prior consultation and subsequent progress notes:
'DATE/TIME OF CONSULTATION: 04/19/22
Reason for Consultation: Stroke Alert
This is an 81-year-old female who has presented to the hospital after being found unresponsive next to her car in the [facility] parking lot at 1245 today. A [facility] patron reported to EMS that they observed her standing by her car for a few minutes before
she collapsed to the ground, was foaming at the mouth, and shaking. EMS report that she had a pulse on arrival and was hypertensive, nonverbal, and weak on her right side. She lives alone and her family is in [place]. Her daughter in [place]
reports that she received an email from the patient this morning at 0619 EST, otherwise, it is unknown when her last known well time was. At baseline, she ambulates with a rolling walker, still drives, and lives independently. She has a home helper
that comes to check on her a few days per week. She has no known history of TIA, stroke, seizure, dementia, or cancer and does not take any blood-thinning medications per medical records.
Patient initially had CT head noncontrast performed and then after the study required intubation given necessity for iodine dye for stroke and CTA and potential for anaphylaxis. After intubation patient required IV preparation of steroid,
famotidine, Benadryl in preparation for iodine contrast with concern for allergy. She had to have right external jugular IV placed and there was concern by CT technicians that this would not be amenable to a power injection of the CT perfusion or
CT angiogram studies, ended up using 20 gauge IV in the arm for the studies.
CT head noncontrast reviewed no MCA sign is seen no hemorrhage no early ischemia aspect score of 10 no chronic infarct seen.
CT perfusion reviewed which is a uninterpretable study due to technical constraints, on the images of the vessels but the left MCA artery is patent through the course of the M1 segment
CTA of the head and neck images and report reviewed there is severe motion degradation, no carotid occlusion bilaterally, terminal ICA occlusion, M2 segments of the left MCA artery not really interpretable.
Assessment:
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
Differential diagnosis would include seizure.
Recommendations
Combination aspirin and clopidogrel 75 mg daily for 21 days then ASA alone
Provide Atorvastatin 40 mg daily.'
Patient subsequently was evaluated by my former esteemed colleague November 2022 at which time the patient was decided to be maintained on both aspirin 81 mg and atorvastatin 40 mg.
Patient recently presented to this hospital for question of lower GI bleed. There was no evidence however of same during that hospitalization, and the patient was discharged on 09/16/2023.
Today, patient returned to this hospital's emergency department after presenting to the [place] physical therapy outpatient department with acute speech change. Patient was described as having last interactions with friends and family verbally
yesterday evening and subsequently sent an email to her daughter timed as 0655 hrs. this morning. That email was described by the patient's daughter by phone as being unremarkable with regards to grammar and content. However, when the patient
presented to physical therapy, the patient was described as having difficulty with speech output (0850 hrs.) today. Patient was then brought to this hospital's emergency department and a stroke alert was initiated. Due to aphasia, the patient
herself is unable to provide her own medical history.
Objective Data
Vital Signs
Pulse Resp Pulse Ox
81 16 97
10/05/23 09:21 10/05/23 09:21 10/05/23 09:21
Lab Results
10/05/23 09:29
Patient Allergies
Iodinated Contrast Media [IV Dye, Iodine Containing] Allergy (Severe, Verified 10/05/23 09:37)
Unknown
povidone-iodine [From Betadine] Allergy (Verified 09/16/23 03:04)
Unknown
red dye [Red Dye] Allergy (Verified 09/16/23 03:04)
Unknown
soap [From Betadine] Allergy (Verified 09/16/23 03:04)
Unknown
CVA Assessment
Onset of Stroke Symptoms
Onset of symptoms known: Yes
Date of onset of symptoms: 10/05/23
Time of onset of symptoms: 09:05
Time pt last seen normal is known: No
Date last time pt seen normal: 10/05/23
Time last time pt seen normal: 06:55
NIH Stroke Score
Level of Consciousness: 0 - Alert
LOC Questions: 1-Answers one correctly
LOC Commands: 0-Performs both correctly
Best Horizontal Gaze: 0-Normal
Visual Mohan: 0=Normal, no visual loss
Facial Palsy: 0=Normal, symmetrical
Motor - Right Arm: 0=No drift 10 seconds
Motor - Left Arm: 0=No drift 10 seconds
Motor - Right Le-No drift 5 seconds
Motor - Left Le-No drift 5 seconds
Limb Ataxia: 0-Absent
Sensation: 0-Normal
Best Language: 2-Severe aphasia
Dysarthria: 0-Normal
Extinction and Inattention: 0-No abnormality
Total Score:: 3
Tenecteplase Contraindications
Inclusion and Exclusion criteria reviewed: Yes
IAT Contraindications: Baseline mRS greater than or equal to 3 by history
Modified Champ Score (MRS)
-
Modified Lipscomb Scale (mRS): Moderate disability. Requires some help, able to walk unassisted.
Score: 3
Review of Systems
-
Unable to obtain full review of systems at this time due to: Aphasia
History Source: Patient
All other systems: Reviewed and negative
Physical Exam
-
General: No Apparent Distress and Appears Stated Age
Eyes: Round OU, [place] Conjunctivae and No Ptosis
HEENT: Anicteric and Moist Mucous Membranes
Neck: Full Range of Motion
Respiratory: No Dyspnea
Cardiac: No JVD
Skin: Unremarkable
Extremities: No Clubbing, No Cyanosis and No Edema
Psych: Intact Judgement/Insight
Extended Neurological Exam
Mood & Affect: Mood Unremarkable and Affect Unremarkable
Attention Span & Concentration: Awake, Alert, Interactive and Severe Difficulty with 2 Step Request
Memory: Able to Recall (month) and Reduced (for year, location)
Tremor: Hand Tremor Absent and Head Tremor Absent
Involuntary Movement: None
Speech: Quantity Unremarkable and Other (Some preserved phrases, gradual worsening of receptive information); Negative Dysarthric
Cranial Nerve II: Left Eye: Pupillary Reactivity Unremarkable, Pupillary Size Unremarkable and Visual Mohan Intact
Cranial Nerve II: Right Eye: Pupillary Reactivity Unremarkable, Pupillary Size Unremarkable and Visual Mohna Intact
Cranial Nerves III, IV, : Extraocular Movement: Extraocular Movement Full in all Directions
Cranial Nerve V: Facial Sensation: Unable to Assess
Cranial Nerve VII: Facial Symmetry: Normal Facial Symmetry
Cranial Nerve VIII: Hearing: Unremarkable Hearing to Normal Conversational Volume
Cranial Nerve XI: Shoulder Shrug: Unremarkable
Muscle Strength, Overall: Full Throughout
Muscle Bulk & Tone: Bulk Unremarkable and Tone Unremarkable
Pronator Drift: No Drift in Upper Extremities and No Drift in Lower Extremities
Touch Sensation: Unremarkable
Coordination: Obbbda-ecdl-hwpbwk Testing Unremarkable
Babinski Sign: Absent Bilaterally
Data Reviewed
-
CT Head: Image Reviewed
MRI Head: Report Reviewed (From March 2022)
MRA Head: Ordered
MRA Neck: Ordered
Labs: Report Reviewed
Lipid Profile: Ordered
Reviewed with: Physician, Nurse, Nurse Practioner, Patient and Family
Old Records: Summarized
Medications
-
Home Medications
�Medication �Instructions �Recorded
atorvastatin 40 mg tablet 40 mg PO QPM #90 tabs 04/30/22
escitalopram oxalate 20 mg tablet 20 mg PO DAILY Mental 04/30/22
Health/Anxiety #30 tabs
pantoprazole 40 mg tablet,delayed 40 mg PO DAILY Reflux #90 tabs 04/30/22
release (Protonix)
aspirin 81 mg tablet,delayed 81 mg PO DAILY 10/05/23
release
ergocalciferol (vitamin D2) 1,250 1,250 mcg PO QWEEK 10/05/23
mcg (50,000 unit) capsule
hydrocodone 10 mg-acetaminophen 1 tab PO TIDPRN PRN severe pain 10/05/23
325 mg tablet
trazodone 50 mg tablet 50 mg PO HSPRN PRN sleep 10/05/23
Past History
Past History
ED Past Medical History: Cancer (Basal cell carcinoma), CVA, GERD, Hypercholesterolemia, Psychiatric (Major depression), Other (Urinary stress incontinence, upper GI bleed 2018, duodenal ulcer) and Other (ocular rosacea, anxiety, chronic back pain )
ED Past Surgical History: Tonsilectomy and Other (Basal cell carcinoma resection)
Social History
Tobacco: Former smoker
Alcohol: None
Drug: None
Personal: Single
Living: alone
Employment: Retired
Family History
Family History: Other (Mother with dementia, father with T-cell lymphoma, Parkinson's and prostate cancer)
[2023-10-05] MEDS: TNKASE 3.2 MG IV (09:49)
[2023-10-05 10:27] LABS: ALT (SGPT) 13 U/L (0-35); AST (SGOT) 27 U/L (14-36); Albumin 4.2 g/dl (3.5-5.0); Alkaline Phosphatase 52 U/L (38-126); Blood Urea Nitrogen 19 mg/dl (7-17); Calcium 9.5 mg/dl (8.4-10.2); Carbon Dioxide 22 mmol/L (22-30); Chloride 107 mmol/L (98-107); Glucose 126 mg/dl (70-99); Potassium 4.1 mmol/L (3.5-5.1); Sodium 139 mmol/L (135-145); Total Bilirubin 0.3 mg/dl (0.2-1.3); Total Protein 7.5 g/dl (6.3-8.2); eGFR 56.25
--- NOTE | 2023-10-05 10:33 | HPS.HSE ---
Family Physician
-
Family Physician: NO INTERVIEW UNKNOWN
Chief Complaint
-
Difficulty talking
History of Present Illness
83-year-old female with a past medical history of CVA, GERD, anxiety/depression, GI bleed secondary to duodenal ulcer, and chronic pain syndrome on chronic opioids presents with acute onset of expressive aphasia. Patient was seen by her physical
therapist at 9 AM today, who noted her to have difficulty with her speech. Associated symptoms include dysphagia. She denies any difficulty with weakness. She denies headache, denies nausea, denies vomiting. She was seen in the emergency room,
and received TNK at 9:53 AM. She lives alone, and has a aide visiting 3 times a week.
Medical History
Past Medical History
Past Medical History: Reports Other
Additional Past Medical History:
ASCVD / CVA
Osteoporosis
Chronic Pain / Multiple Vertebral Compression Fractures
Anxiety / Depression
GERD
GIB/Duodenal Ulcers
Rosacea
Malignant Melanoma
Chronic pain syndrome on chronic opioids
Past Surgical History: Reports Other
Additional Past Surgical History:
T&A
Skin Cancer Excision
Social History
Tobacco: Former Smoker (Quit smoking over 60 years ago.)
Alcohol: None
Drug: None
Family History
Family History: Not pertinent
Allergies / Home Medications
Allergies reflects when Allergies were last updated in [email or web address].
Home Medications with original date entered in [email or web address]
Allergy/Medication List:
Allergies
Allergy/AdvReac Type Severity Reaction Status Date / Time
Iodinated Contrast Media Allergy Severe Unknown Verified 10/05/23 09:37
[IV Dye, Iodine Containing]
povidone-iodine Allergy Unknown Verified 09/16/23 03:04
[From Betadine]
red dye [Red Dye] Allergy Unknown Verified 09/16/23 03:04
soap [From Betadine] Allergy Unknown Verified 09/16/23 03:04
Home Medications Table - record
�Medication �Instructions �Recorded �Confirmed
escitalopram oxalate 20 mg tablet 20 mg PO DAILY Mental 04/30/22 10/05/23
Health/Anxiety #30 tabs
pantoprazole 40 mg tablet,delayed 40 mg PO DAILY Reflux #90 tabs 04/30/22 10/05/23
release (Protonix)
aspirin 81 mg tablet,delayed 81 mg PO DAILY Blood Clot 10/05/23 10/05/23
release Prevention/Tx
atorvastatin 40 mg tablet 40 mg PO QPM High Cholesterol 10/05/23 10/05/23
calcium carbonate 600 mg-vitamin 1 tab PO DAILY Supplement 10/05/23 10/05/23
D3 5 mcg (200 unit) tablet
cyanocobalamin (vitamin B-12) 100 100 mcg PO DAILY Supplement 10/05/23 10/05/23
mcg tablet (Vitamin B-12)
ergocalciferol (vitamin D2) 1,250 1,250 mcg PO QWEEK Supplement 10/05/23 10/05/23
mcg (50,000 unit) capsule
hydrocodone 10 mg-acetaminophen 1 tab PO TIDPRN PRN severe pain 10/05/23 10/05/23
325 mg tablet
sennosides 8.6 mg-docusate sodium 1 cap PO BID PRN CONSTIPATION 10/05/23 10/05/23
50 mg capsule (Senna Plus)
trazodone 50 mg tablet 50 mg PO HSPRN PRN sleep 10/05/23 10/05/23
Review of Systems
-
A 12 point ROS was completed and negative except as noted: Yes
Physical Exam
Vital Signs
Vital Signs
Pulse Resp BP Pulse Ox
71 12 136/83 100
10/05/23 10:14 10/05/23 10:14 10/05/23 10:14 10/05/23 10:00
Physical Exam
General: No Apparent Distress
HEENT: NormoCephalic, Anicteric, Moist mucous membranes and Atraumatic
Respiratory: Clear
Cardiac: S1/S2 and Regular Rhythm
GI: Soft, Non Tender and Non Distended
Musculoskeletal: No Clubbing, No Cyanosis and No Edema
Neuro: Awake, Alert, No Motor Deficits and Other (Expressive aphasia noted)
Psych: Calm
Laboratory Results
-
10/05/23:
10/05/23:
Laboratory Results
Total Bilirubin 0.3 mg/dl (0.2-1.3) 10/05/23
AST 27 U/L (14-36) 10/05/23
ALT 13 U/L (0-35) 10/05/23
Alkaline Phosphatase 52 U/L (38-126) 10/05/23:
Impression/Plan
-
83-year-old female with a past medical history of CVA, GERD, anxiety/depression, GI bleed secondary to duodenal ulcer, and chronic pain syndrome on chronic opioids presents with acute onset of expressive aphasia. Patient was seen by her physical
therapist at 9 AM today, who noted her to have difficulty with her speech. Associated symptoms include dysphagia. She denies any difficulty with weakness. She denies headache, denies nausea, denies vomiting. She was seen in the emergency room,
and received TNK at 9:53 AM. She lives alone, and has a aide visiting 3 times a week.
#Acute aphasia
#Probable CVA
Appreciate neurology input, s/p TNK 10/04
Will follow post TPA protocol
1. Admit to ICU, monitor on telemetry, NIHSS and neurologic checks
2. BP goal after tPA < 180/105 for 24 hours after tPA, PRN labetalol
3. Check MRI of the brain without contrast, check echocardiogram
4. Check lipid panel and hemoglobin A1c
5. Hold antiplatelet anticoagulation and any DVT pharmacologic prophylaxis for 24 hours
6. Speech, physical, occupational therapies
Increase atorvastatin to 80 mg at bedtime
#History of duodenal ulcers
#Gastroesophageal reflux disease
Continue PPI
#Chronic pain syndrome with chronic opioid dependency
#Multiple vertebral compression fractures
Continue home hydrocodone�acetaminophen 1 tablet 3 times daily as needed
#Osteoporosis
Continue calcium with vitamin D
#Anxiety/depression
Continue SSRI, trazodone as needed
#Constipation
Continue home sennosides�docusate
DVT prophylaxis�SCDs
Full code
Total time spent to see the patient on the floor, examine the patient, review data and lab results, discuss treatment plan with patient, nursing staff around 76 minutes.
[2023-10-05 10:34] LABS: INR 0.94; PT 12.6 Sec (11.4-14.6)
--- NOTE | 2023-10-05 10:44 | EDRN ---
Bedside report and NIH done with EVENT COORDINATOR MARKETING AND SALES Eda. all questions regarding pt answered at this time.
--- NOTE | 2023-10-05 10:50 | CON.INTV ---
Consultation
Consultation Request
Date/Time Consultation Requested: 10/05/23
Date/Time Consultation Performed: 10/05/23
Performing Provider: Aristeo
Reason for Consultation: ICU
Medical History
-
History of Present Illness:
Patient is an 83-year-old female with previous history of CVA, hyperlipidemia, former smoker presenting to the hospital from physical therapy outpatient department with acute change in speech, with notable expressive aphasia. Was sent to the
emergency room and felt to have an NIH score of 4. She had previous hospitalization for suspected CVA but did not receive tPA in 2022.
Received TNK in ER, admitted to ICU.
Past Medical History
Past Medical History: Other (see list below)
Social History
Tobacco: Non-smoker
Alcohol: None
Drug: None
Allergies / Home Medications
Allergies
Allergy/AdvReac Type Severity Reaction Status Date / Time
Iodinated Contrast Media Allergy Severe Unknown Verified 10/05/23 09:37
[IV Dye, Iodine Containing]
povidone-iodine Allergy Unknown Verified 09/16/23 03:04
[From Betadine]
red dye [Red Dye] Allergy Unknown Verified 09/16/23 03:04
soap [From Betadine] Allergy Unknown Verified 09/16/23 03:04
Home Medications
�Medication �Instructions �Recorded �Confirmed �Last Taken �Type
atorvastatin 40 mg tablet 40 mg PO QPM #90 tabs 04/30/22 10/05/23 Unknown Rx
escitalopram oxalate 20 mg tablet 20 mg PO DAILY Mental 04/30/22 10/05/23 Unknown Rx
Health/Anxiety #30 tabs
pantoprazole 40 mg tablet,delayed 40 mg PO DAILY Reflux #90 tabs 04/30/22 10/05/23 Unknown Rx
release (Protonix)
aspirin 81 mg tablet,delayed 81 mg PO DAILY 10/05/23 10/05/23 Unknown History
release
calcium carbonate 600 mg-vitamin 1 tab PO DAILY 10/05/23 10/05/23 Unknown History
D3 5 mcg (200 unit) tablet
cyanocobalamin (vitamin B-12) 100 100 mcg PO DAILY 10/05/23 10/05/23 Unknown History
mcg tablet (Vitamin B-12)
ergocalciferol (vitamin D2) 1,250 1,250 mcg PO QWEEK 10/05/23 10/05/23 Unknown History
mcg (50,000 unit) capsule
hydrocodone 10 mg-acetaminophen 1 tab PO TIDPRN PRN severe pain 10/05/23 10/05/23 Unknown History
325 mg tablet
trazodone 50 mg tablet 50 mg PO HSPRN PRN sleep 10/05/23 10/05/23 Unknown History
Review of Systems
-
History Source: Patient
All other systems: Negative unless noted
Vitals / Labs / Diagnostic Testing
Vital Signs
Pulse Resp BP Pulse Ox
76 21 160/83 100
10/05/23 10:40 10/05/23 10:40 10/05/23 10:30 10/05/23 10:25
Lab Data
10/05/23 09:29
10/05/23 09:29
Laboratory Results
10/05/23
10:07
PT 12.6
INR 0.94
Diagnostic Testing:
Physical Exam
-
HEENT: Normocephalic, Anicteric and Moist Mucous Membranes
Cardiovascular: S1/S2 and Regular Rhythm
Respiratory: Clear and Non-Labored Respirations
GI: Soft, Non Distended and Non Tender
Neurology: Awake, Alert, No Motor Deficits and Other (expressive and receptive aphasia, ongoing)
Skin: Warm, Dry and Good Color
General: Comfortable and Other (NAD)
Assessment
-
Patient is an 83-year-old female with previous history of CVA, hyperlipidemia, former smoker presenting to the hospital from physical therapy outpatient department with acute change in speech, with notable expressive aphasia. Was sent to the
emergency room and felt to have an NIH score of 4. She had previous hospitalization for suspected CVA but did not receive tPA in 2022. Received TNK in ER, admitted to ICU.
Expressive aphasia
Suspect acute CVA s/p TNK 10/05/23
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
Prior stroke involving the left centrum semiovale in March 2022
s/p intubation 04-19 for airway protection as had h/o allergy to iodine from contrast studies
CKD
Anxiety
Depression
HLD
GERD
Constipation
Diverticulosis
Chronic back pain
Former smoker
Plan
S/p TNK for CVA
Observe overnight following administration
Follow CBC, neurovascular checks
Repeat MRI in AM
Prior cardiac history includes HLD, no HTN
BP stable on arrival and throughout
Prior ECHO showing stable function, no h/o Afib
No prior h/o lung disease, no PFTs for review
Stable on RA
Aspiration precautions
CXR reviewed in past, no acute findings
Restart diet per protocol
Speech eval
GI ppx if indicated
Creat at baseline, follow UO
CKD history is noted
Void trials
No signs/symptoms suspicious for infectious etiology at this time.
Will observe off antibiotics for now.
DVT ppx held, SCDs
We will follow
Diagnostic Data
Chest X-Ray:
CXR 04-19-, c/w Nov 2016. Mild pulm vasc congestion. ETT in place. Suspected free air under L diaphragm (ruled out by below CT abd/p)
AXR 04-20: Gastric distension, no air fluid levels
CT Scan: HEAD 10/05/23- No acute intracranial abnormalities. Findings again seen compatible with diffuse cortical atrophy with nonspecific white matter changes as described above.
CT abd/p c/c 04-19 IMPRESSION: No free air in the abdomen or pelvis. Severe gastric distention. This can be seen with gastroparesis. Duodenal narrowing or masses cannot be excluded without oral contrast. This can also be further evaluated by direct
visualization if indicated clinically. Large amount of fecal material in the colon concerning for fecal impaction. Clinical correlation recommended. Mild diverticulosis.
Severe atherosclerotic vascular disease. Multiple age indeterminate compression fractures possibly due to degenerative disease
Head/neck CTA 04-19 IMPRESSION: Limited study. Evaluation at the origins of the anterior and middle cerebral arteries bilaterally is severely limited by patient motion. Flow is demonstrated in these vessels, however, evaluation for partially
occlusive thrombus is markedly limited by patient motion. There is moderate partially calcific atherosclerotic plaque at both carotid bifurcations associated with near 50% stenosis on the left and no significant stenosis on the right
Echo: 04/20/22- Normal biventricular size and systolic function without regional wall motion abnormality. No significant valvular disease. No prior study available for comparison.
PFT's:
Reports and relevant images were personally reviewed.
-----
Critical Care time 51 mins -- The patient is admitted for acute critical illness for the treatment of vital organ failure and/or prevention of further life-threatening conditions. Total care includes time spent in review of history, physical exam,
medications, hemodynamic/ventilator parameters, laboratory data, imaging and discussion with house staff, pharmacy, respiratory therapy, retail field supervisor, and nursing.
--- NOTE | 2023-10-05 11:00 | PTCARENOTE ---
1100-Received report from ELECTRO WINNING OPERATOR.NIHSS completed in tandem at bedside.NIHSS 4,unchanged from ED assessment.Pt is awake and alert.+ receptive and expressive aphasia noted.Conversation is a mix of appropriate and nonsensical words.Miming occasionally
needed to follow commands.No drift/droop,sensory or visual disturbance noted.1st degree AVB noted.Lungs CTA.POX 98% on RA.+ BS.No void at this time.Skin integrity as documented.Pt's career services representative Katerina at bedside.Pt's daughter on Facetime with pt and
RN.Plan of care discussed.
[2023-10-05 11:03] LABS: Magnesium 1.9 mg/dl (1.6-2.3)
--- NOTE | 2023-10-05 12:00 | PTCARENOTE ---
Pt's speech with improved fluency.Occasional word finding difficulty,and rare nonsensical wording noted.Pt is conversing mostly appropriately and answers question correctly.
[2023-10-05 12:30] LABS: APTT 27.8 Sec (23.4-35.0)
--- NOTE | 2023-10-05 13:01 | PTOTSP ---
Speech Pathology Evaluation
83F with admission for possible CVA s/p TNK p/w clinical s/s of a grossly WNL oropharyngeal swallow. Demonstrates changes in cognition and expressive/receptive language, but continues to progress back to baseline per caregiver. DRESS SHOE INSPECTOR service to follow
up and evaluate.
Recommend:
1. Regular solids (IDDSI 7), thin liquids (IDDSI 0)
2. Meds as tolerated
3. General aspiration and reflux precautions
4. DRESS SHOE INSPECTOR service to follow up x1 in regards to swallow and perform cognitive-linguistic evaluation at the acute care level
[2023-10-05] MEDS: LIDOCAINE 4% PATCH TOPICAL (13:44)
[2023-10-05 14:19] LABS: Glycohemoglobin (HgbA1c) 5.6 % (4.0-5.6)
[2023-10-05] MEDS: SENOKOT-S 1 TABLET PO (15:13)
[2023-10-05] MEDS: NORCO 7.5/325 1 TABLET PO (16:31)
--- NOTE | 2023-10-05 16:36 | PTCARENOTE ---
Pt requested and received Hydrocodone for chronic back pain and 2/10 frontal headache.Neuro assessment unchanged.
[2023-10-05] MEDS: LIPITOR 80 MG PO (17:56)
--- NOTE | 2023-10-05 18:15 | PTCARENOTE ---
Back pain and headache have resolved.c/o sinus pressure.Declines offer of additional pain medication.
[2023-10-05] MEDS: TYLENOL 650 MG PO (18:41)
--- NOTE | 2023-10-05 20:00 | PTCARENOTE ---
rec`d pt at 1900. neuro check done with previous shift RN. NIH-1. AAOx3. SR on monitor. +1 lower extrem edema. clear room air POX 98%. complains of no plain. passed swallow evail during the day. pt uses commode. #rt AC 20 flushed and patent. call
phillips in reach. safe environment maintained.
[2023-10-05] MEDS: SENOKOT-S 2 TABLET PO (20:47)
--- NOTE | 2023-10-05 22:29 | PTCARENOTE ---
updated daughter via phone call on pt`s status. pt is sleeping. continued q1h neurochecks.
--- NOTE | 2023-10-05 22:44 | PTCARENOTE ---
spoken to brijesh, the other contact on the pt`s contact list. updated her as well.
[2023-10-06] VITALS (29 sets, daily range): BP systolic 91–133; BP diastolic 50–105; PULSE 60; O2SAT 99; BMI 24.4
[2023-10-06 04:40] LABS: Hematocrit 31.4 % (37.0-47.0); Hemoglobin 10.9 g/dL (12.0-16.0); Mean Corp Hgb Conc. 34.7 g/dL (33.0-37.0); Mean Corpuscular Hgb 32.4 pg (27.0-31.0); Mean Corpuscular Volume 93.5 fL (81.0-99.0); Mean Platelet Volume 9.4 fL (7.4-10.4); Platelet Count 280 10^3/uL (130-400); Red Blood Cell Count 3.36 10^6/uL (4.20-5.40); Red Cell Dist. Width 13.8 % (11.5-14.5); White Blood Cell Count 7.7 10^3/uL (4.8-10.8)
[2023-10-06 04:50] LABS: APTT 26.4 Sec (23.4-35.0); INR 1.05; PT 13.7 Sec (11.4-14.6)
[2023-10-06] MEDS: NORCO 7.5/325 1 TABLET PO ×2 (04:52→18:55)
[2023-10-06 05:03] LABS: Blood Urea Nitrogen 16 mg/dl (7-17); Calcium 9.7 mg/dl (8.4-10.2); Carbon Dioxide 26 mmol/L (22-30); Chloride 105 mmol/L (98-107); Estimated Creatinine Clearance 40 ml/min; Glucose 104 mg/dl (70-99); HDL Cholesterol 39 mg/dl; LDL Cholesterol, Calculated 79 mg/dl; Potassium 3.9 mmol/L (3.5-5.1); Sodium 139 mmol/L (135-145); Total Cholesterol 144 mg/dl (50-199); Triglyceride 134 mg/dl (10-149); Very Low Density Lipoprotein 26 mg/dl (0-30); eGFR > 60.00
--- NOTE | 2023-10-06 07:22 | W.PN.INTV ---
Today's Communication / Plan
Recommendations
Doing well post TNK, aphasia improving
MRI planning today
PT/OT, speech evals ongoing
If stable, can transfer to tele
We will sign off upon transfer
Assessment
-
Patient is an 83-year-old female with previous history of CVA, hyperlipidemia, former smoker presenting to the hospital from physical therapy outpatient department with acute change in speech, with notable expressive aphasia. Was sent to the
emergency room and felt to have an NIH score of 4. She had previous hospitalization for suspected CVA but did not receive tPA in 2022. Received TNK in ER, admitted to ICU.
Expressive aphasia
Suspect acute CVA s/p TNK 10/05/23
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
Prior stroke involving the left centrum semiovale in March 2022
s/p intubation 04-19 for airway protection as had h/o allergy to iodine from contrast studies
CKD
Anxiety
Depression
HLD
GERD
Constipation
Diverticulosis
Chronic back pain
Former smoker
Plan
S/p TNK for CVA
Observe overnight following administration
Follow CBC, neurovascular checks
Repeat MRI today
Neuro following
Prior cardiac history includes HLD, no HTN
BP stable on arrival and throughout
Prior ECHO showing stable function, no h/o Afib
No prior h/o lung disease, no PFTs for review
Stable on RA
Aspiration precautions
CXR reviewed in past, no acute findings
Restart diet per protocol
Speech eval
GI ppx if indicated
Creat at baseline, follow UO
CKD history is noted
Void trials
No signs/symptoms suspicious for infectious etiology at this time.
Will observe off antibiotics for now.
DVT ppx held, SCDs
PT/OT
Diagnostic Data
Chest X-Ray:
CXR 04-19-22, c/w Nov 2016. Mild pulm vasc congestion. ETT in place. Suspected free air under L diaphragm (ruled out by below CT abd/p)
AXR 04-20: Gastric distension, no air fluid levels
CT Scan: HEAD 10/05/23- No acute intracranial abnormalities. Findings again seen compatible with diffuse cortical atrophy with nonspecific white matter changes as described above.
CT abd/p c/c 04-19 IMPRESSION: No free air in the abdomen or pelvis. Severe gastric distention. This can be seen with gastroparesis. Duodenal narrowing or masses cannot be excluded without oral contrast. This can also be further evaluated by direct
visualization if indicated clinically. Large amount of fecal material in the colon concerning for fecal impaction. Clinical correlation recommended. Mild diverticulosis.
Severe atherosclerotic vascular disease. Multiple age indeterminate compression fractures possibly due to degenerative disease
Head/neck CTA 04-19 IMPRESSION: Limited study. Evaluation at the origins of the anterior and middle cerebral arteries bilaterally is severely limited by patient motion. Flow is demonstrated in these vessels, however, evaluation for partially
occlusive thrombus is markedly limited by patient motion. There is moderate partially calcific atherosclerotic plaque at both carotid bifurcations associated with near 50% stenosis on the left and no significant stenosis on the right
Echo: 04/20/22- Normal biventricular size and systolic function without regional wall motion abnormality. No significant valvular disease. No prior study available for comparison.
PFT's:
Reports and relevant images were personally reviewed.
-----
Critical Care time 31 mins -- The patient is admitted for acute critical illness for the treatment of vital organ failure and/or prevention of further life-threatening conditions. Total care includes time spent in review of history, physical exam,
medications, hemodynamic/ventilator parameters, laboratory data, imaging and discussion with house staff, pharmacy, respiratory therapy, nut cracker, and nursing.
Subjective Dataa
Subjective Data
Date of Service:
Date of Service: October 06, 2023
Chief Complaint: Fraud Prevention Analyst Follow Up
Subjective:
no acute events ON, remains stable
aphasia improved
MRI planning
Objective Data
Data Reviewed
Vital Signs / I&O / Oxygen:
Vital Signs
Temp Pulse Resp BP Pulse Ox
98.6 F 68 18 113/68 98
10/06/23 06:55 10/06/23 06:00 10/06/23 06:00 10/06/23 06:00 10/05/23 20:00
Intake and Output
10/05/23 10/06/23 10/07/23
06:59 06:59 06:59
Intake Total 240 / 240
Output Total 400 / 400
Balance -160 / -160
SaO2 98
Physical Exam
General: Comfortable, Good Appetite and Other (NAD)
HEENT: Normocephalic, Anicteric and Moist Mucous Membranes
Cardiovascular: S1-S2 and Regular Rhythm
Respiratory: Clear and Non-Labored Respirations
GI: Soft, Non Distended and Non Tender
Neurology: Awake, Alert, Oriented, AO x 3 and No Motor Deficits
Skin: Warm, Dry and Good Color
Labs/Micro/Reports
Lab Data
10/06/23 04:26
10/06/23 04:26
Laboratory Results
10/05/23 10/05/23 10/06/23
09:29 10:07 04:26
PT 12.6 13.7
INR 0.94 1.05
APTT 27.8 26.4
[2023-10-06] MEDS: OSCAL 500 + D 500 MG PO (07:59)
[2023-10-06] MEDS: LIDOCAINE 4% PATCH TOPICAL (07:59)
[2023-10-06] MEDS: SENOKOT-S 2 TABLET PO (07:59)
[2023-10-06] MEDS: PROTONIX 40 MG PO (07:59)
[2023-10-06] MEDS: LEXAPRO 20 MG PO (08:00)
[2023-10-06] MEDS: VITAMIN B-12 100 MCG PO (08:00)
--- NOTE | 2023-10-06 08:00 | PTCARENOTE ---
Assumed care of patient. Pt rec'd A&Ox3. Pleasant. NIHSS 0...no deficits noted. Assist x 1 to get OOB to bathroom w/ rolling walker. Steady gait noted...no dizziness or nausea w/ activity. S1 S2 reg w/ NSR on monitor. +PP. Trace LLE. Knee
hi SCD's on. On R/A...lungs clear. Sats 99%. Abdomen soft and nontender...+BS. No BM this am. Incontinent of yellow urine...attends on. Skin pale in color. Scattered scabs and areas of ecchymosis...see wound documentation. 20P RAC. VS
documented. Takes po meds w/o issue. Breakfast ordered. For f/u MRI this am. Will provide po ativan prior to testing. Call phillips within reach. Will continue to monitor.
--- NOTE | 2023-10-06 08:56 | W.PN.HOSP.TC ---
Today's Communication/Plan
-
Stable for telemetry
Assessment / Plan
Assessment / Plan
83-year-old female with a past medical history of CVA, GERD, anxiety/depression, GI bleed secondary to duodenal ulcer, and chronic pain syndrome on chronic opioids presents with acute onset of expressive aphasia. Patient was seen by her physical
therapist at 9 AM today, who noted her to have difficulty with her speech. Associated symptoms include dysphagia. She denies any difficulty with weakness. She denies headache, denies nausea, denies vomiting. She was seen in the emergency room,
and received TNK at 9:53 AM. She lives alone, and has a aide visiting 3 times a week.
#Acute aphasia
#Probable CVA
Appreciate neurology input, s/p TNK 10/04
Brain MRI negative for acute intracranial abnormality
LDL 79, hemoglobin A1c 5.6. Echo reviewed
Speech, physical, occupational therapies
Increased atorvastatin to 80 mg at bedtime
Defer to neurology when to start antiplatelet therapy
Will need outpatient cognitive assessment/SPL
PT rec HH
#History of duodenal ulcers
#Gastroesophageal reflux disease
Continue PPI
#Chronic pain syndrome with chronic opioid dependency
#Multiple vertebral compression fractures
Continue home hydrocodone�acetaminophen 1 tablet 3 times daily as needed
#Osteoporosis
Continue calcium with vitamin D
#Anxiety/depression
Continue SSRI, trazodone as needed
#Constipation
Continue home sennosides�docusate
Add MiraLAX
DVT prophylaxis�subcu Lovenox
Full code
Total time spent to see the patient on the floor, examine the patient, review data and lab results, discuss treatment plan with patient, nursing staff around 51 minutes.
Physical Exam
General: Elderly, no acute distress
HEENT: Normocephalic, Atraumatic, EOMI, MMM
Respiratory: Clear to Auscultation bilaterally
Cardiac: Normal S1/S2, Regular Rate and Rhythm
GI: Soft, Nontender, Nondistended, Normal Bowel Sounds
Extremities: No Clubbing, Cyanosis, or Edema
Neuro: Expressive aphasia nearly resolved, speech almost normal
Psych: Calm, Cooperative
Anticipated Discharge: Within 24 hours
Subjective/Interval History
-
Date of Service: October 06, 2023
Patient's expressive aphasia is much improved, nearly back to baseline. No fever, no vomiting.
Objective Data
-
Labs:
Laboratory Results
10/06/23
04:26
WBC 7.7
Hgb 10.9 L
Hct 31.4 L
Plt Count 280
PT 13.7
INR 1.05
APTT 26.4
Sodium 139
Potassium 3.9
Chloride 105
Carbon Dioxide 26
BUN 16
Creatinine 0.9
Glucose 104 H
Calcium 9.7
Vital Signs:
Vital Signs
Temp Pulse Resp BP Pulse Ox
98.6 F 70 14 111/60 99
10/06/23 06:55 10/06/23 08:15 10/06/23 08:15 10/06/23 08:00 10/06/23 08:00
I&O
10/05/23 10/06/23 10/07/23
06:59 06:59 06:59
Intake Total 240 / 240 120 / 120
Output Total 400 / 400
Balance -160 / -160 120 / 120
[2023-10-06] MEDS: ATIVAN 1 MG PO (11:18)
--- NOTE | 2023-10-06 11:47 | W.PN.NEURO.1 ---
Today's Communication / Plan
-
� check MRI of the brain within 22-32 hours of TNK without contrast for localization of the stroke
� check �MRA of the head with and without contrast and an MRA of the neck with contrast
� hold all antiplatelets, OAC meds, DOAC meds, heparinoids for intial 24 hours s/p TNK; then can start DAPT if no evidence of hemorrhage on MRI brain
Neuro Assessment/Plan
Assessment
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
residual deficit but otherwise feels back to normal and her NIHSS is 0.
Most likely due to thromboembolic event as well as mild hypertension and hypercholesterolemia.
Plan
Recommendations:
� continue ICU level of care; can be cleared fro transfer after 24 hr s/p TNK radu if remains stable
� goal blood pressure over initial 24 hours would be less than 180/105 mmHg, after which goal is normotension
� check MRI of the brain within 22-32 hours of TNK without contrast for localization of the stroke
� check �MRA of the head with and without contrast and an MRA of the neck with contrast
� hold all antiplatelets, OAC meds, DOAC meds, heparinoids for intial 24 hours s/p TNK; then can start DAPT if no evidence of hemorrhage on MRI brain
continue telemetry monitoring
� increased her outpatient dosing of atorvastatin to 80 mg at bedtime; LDL is 79; goal after stroke is <70
� goal blood glucose levels for patient would be less than 180 mg/dL; HgbA1C WNL AT 5.6
� Speech, PT, OT evaluations needed
� DVT prophylaxis with sequential compression devices for first 24 hours s/p TNK, can be started on Enoxaparin subcutaneous for DVT prophylaxis beginning 24 hours after TNK provision.
� medical educational materials will be provided
� echo completed; showed no CSE
continue NIHSS, neurochecks
Critical care time 40 mins
We will follow.
Subjective/Objective
Subjective Data
Date of Service: October 06, 2023
nearly back to her baseline; reports some residual mild word finding difficulty since this event
Objective Data
Vital Signs
Temp Pulse Resp BP Pulse Ox
98.6 F 80 15 95/62 99
10/06/23 06:55 10/06/23 11:35 10/06/23 11:35 10/06/23 11:24 10/06/23 08:00
Lab Results
10/06/23 04:26
10/06/23 04:26
PT 13.7 Sec (11.4-14.6) 10/06/23 04:26
INR 1.05 10/06/23 04:26
APTT 26.4 Sec (23.4-35.0) 10/06/23 04:26
Sodium 139 mmol/L (135-145) 10/06/23 04:26
Potassium 3.9 mmol/L (3.5-5.1) 10/06/23 04:26
BUN 16 mg/dl (7-17) 10/06/23 04:26
Glucose 104 mg/dl (70-99) H 10/06/23 04:26
Calcium 9.7 mg/dl (8.4-10.2) 10/06/23 04:26
LDL Cholesterol, Calc 79 mg/dl 10/06/23 04:26
Patient Allergies
Iodinated Contrast Media [IV Dye, Iodine Containing] Allergy (Severe, Verified 10/05/23 09:37)
Unknown
povidone-iodine [From Betadine] Allergy (Verified 09/16/23 03:04)
Unknown
red dye [Red Dye] Allergy (Verified 09/16/23 03:04)
Unknown
soap [From Betadine] Allergy (Verified 09/16/23 03:04)
Unknown
Physical Exam
-
General: Well Developed, Well Nourished and No Apparent Distress
Extended Neurological Exam
Mood & Affect: Mood Unremarkable and Affect Unremarkable
Attention Span & Concentration: Awake, Alert and Interactive
Memory: Able to Recall
Tremor: Hand Tremor Absent and Head Tremor Absent
Speech: Other (exhibited very rare word finding difficulty in conversation but all testing for aphasia in the NIHSS was normal)
Cranial Nerve II: Left Eye: Pupillary Reactivity Unremarkable and Pupillary Size Unremarkable
Cranial Nerve II: Right Eye: Pupillary Reactivity Unremarkable and Pupillary Size Unremarkable
Cranial Nerves III, IV, : Extraocular Movement: Extraocular Movement Full in all Directions
Cranial Nerve V: Facial Sensation: Facial Sensation Unremarkable to Cold
Cranial Nerve VII: Facial Symmetry: Normal Facial Symmetry
Cranial Nerve VIII: Hearing: Unremarkable Hearing to Normal Conversational Volume
Cranial Nerves IX, X: Palate Movement: Palate Elevation Symmetric
Cranial Nerve XI: Shoulder Shrug: Unremarkable
Cranial Nerve XII: Tongue Protusion: Midline
Muscle Strength, Overall: Full Throughout
Pronator Drift: No Drift in Upper Extremities and No Drift in Lower Extremities
Deep Tendon Reflexes: Unremarkable Throughout
Cold Sensation: Unremarkable
Touch Sensation: Unremarkable
Coordination: Dzgjos-ldie-[id number] Testing Unremarkable
Babinski Sign: Absent Bilaterally
NIH Stroke Scale
NIH Stroke Score
Date of Subsequent NIH Scale: 10/06/23
Time of Subsequent NIH Scale: 10:00
Level of Consciousness: 0 - Alert
LOC Questions: 0-Answers both correctly
LOC Commands: 0-Performs both correctly
Best Horizontal Gaze: 0-Normal
Visual Mohan: 0=Normal, no visual loss
Facial Palsy: 0=Normal, symmetrical
Motor - Right Arm: 0=No drift 10 seconds
Motor - Left Arm: 0=No drift 10 seconds
Motor - Right Le-No drift 5 seconds
Motor - Left Le-No drift 5 seconds
Limb Ataxia: 0-Absent
Sensation: 0-Normal
Best Language: 0-No aphasia
Dysarthria: 0-Normal
Extinction and Inattention: 0-No abnormality
Total Score:: 0
--- NOTE | 2023-10-06 13:46 | CM ---
CM following re: discharge planning.
Reviewed pt's chart, met with pt.
Pt is an 82 year old female, admitted with primary dx of CVA/TIA. .
Pt reports she lives alone in a [address]SH townhouse, has a daughter and she lives in [place] and per pt she feels that pt's stays with the daughter. Pt reports she ambulates with [facility], has [facility] ([phone]) 3 times per
week and they will transport pt home at discharge. pt reports she is known to [facility] for senior living and PT/OT. Pt expressed her desire to return back home with [facility], [facility].
PCP: Neto Zamora
Pharmacy: [facility]
D/C plan: home with resumptions of [facility] and [facility].
CM will follow with discharge plan updates as hospitalization progresses
--- NOTE | 2023-10-06 14:22 | CON.MD ---
Documented by User: Angelique Rubio PA-C 10/07/23 16:21
Consultation - Medical
-
Referring Provider: Dr. Packer
Chief Complaint: CVA
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
on 10/05/23 with abrupt onset expressive aphasia while at outpatient physical therapy.Associated symptoms include dysphagia. She denies any difficulty with weakness. She is s/p TNK and has nearly returned to baseline with minima word finding in
conversations . Neurology assess that most likely due to thromboembolic event as well as mild hypertension and hypercholesterolemia.
CT scan of head- compatible with diffuse cortical atrophy with nonspecific white matter changes.
MRI-No acute intracranial abnormality noted. No acute infarct. Atrophy. Chronic microvascular white matter ischemic disease.
Head MRA:No hemodynamically significant stenosis or branch occlusion. Possible 2 mm aneurysm projecting from the lateral margin of the proximal left cavernous ICA.
Neck MRA:Minor proximal right and mild proximal left ICA plaque. No hemodynamically significant stenosis.
Past Medical History: CVA, Hypercholesterolemia and Other (ocular rosacea, anxiety, chronic back pain, Raynaud's, diverticulosis, GI bleed )
Procedure History: T&A, Skin Cancer Excision
Family History: Mother with dementia, father with T-cell lymphoma, Parkinson's and prostate cancer
Social History:
Functional Level Premorbidly: Independent with all activities
Functional Level Currently: Bed mobility -supervision, transfer-supervision, grooming-supervision, toileting- min assist, upper body dressing- min assist ambulated 100 feet x 2 with rolling walker at supervision
Tobacco: former, over 60 years ago
Alcohol: Denies
Drug use: Denies
Lives with: alone
24-hour assistance available: caregivers 3x/week
Number of floors: 2
# steps to enter: 4
# steps to second floor:
Potential First floor set up:
Driving: yes
Occupation: retired
�
Allergies:
Allergy/AdvReac Type Severity Reaction Status Date / Time
Iodinated Contrast Media Allergy Severe Unknown Verified 10/05/23 09:37
[IV Dye, Iodine Containing]
povidone-iodine Allergy Unknown Verified 09/16/23 03:04
[From Betadine]
red dye [Red Dye] Allergy Unknown Verified 09/16/23 03:04
soap [From Betadine] Allergy Unknown Verified 09/16/23 03:04
Review of Systems:
Constitutional: (x) Normal _
Eye: (x) Normal _
Ear/Nose/Throat: (x) Normal _
Respiratory: (x) Normal _
Cardiovascular: (x) Normal _
Gastrointestinal: (x) Normal _
Genitourinary: (x) Normal _
Musculoskeletal: (x) Normal _
Integumentary: (x) Normal _
Neurologic: (x) aphasia
Psychiatric: (x) Normal _
Endocrine: (x) Normal _
Hematologic/Lymphatic: (x) Normal _
Allergic/Immunologic: (x) Normal _
Medications:
Active Current Visit Medication List
Category Date Time Status
Acetaminophen [Tylenol/Feverall] Med 10/05/23 11:12 Active
650 mg RECTAL Q4HPRN PRN
Acetaminophen [Tylenol] Med 10/05/23 11:07 Active
650 mg PO Q4HPRN PRN
Atorvastatin [Lipitor] Med 10/05/23 18:00 Active
80 mg PO QPM
Calcium Carbonate/Vitamin D3 [Oscal 500 + D] Med 10/06/23 08:00 Active
500 mg PO DAILY
Cyanocobalamin [Vitamin B-12] Med 10/06/23 08:00 Active
100 mcg PO DAILY
Docusate W/Senna [Senokot-S] Med 10/05/23 14:45 Active
2 tablet PO BID
Escitalopram Oxalate [Lexapro] Med 10/06/23 08:00 Active
20 mg PO DAILY
Hydrocodone 7.5/APAP 325 [[place] 7.5/325] Med 10/05/23 13:32 Active
1 tablet PO TIDPRN PRN
Labetalol HCl [Trandate] Med 10/05/23 11:07 Active
5 mg IV Q6HPRN PRN
Lidocaine [Lidocaine 4% Patch] Med 10/05/23 10:00 Active
1 patch TOPICAL DAILY
Magnesium Hydroxide [Milk of Magnesia] Med 10/05/23 11:07 Active
30 ml PO BIDPRN PRN
Morphine Sulfate Med 10/05/23 11:12 Active
2 mg IV Q4HPRN PRN
Ondansetron Injectable [Zofran] Med 10/05/23 11:12 Active
4 mg IV Q6HPRN PRN
Pantoprazole [Protonix] Med 10/06/23 08:00 Active
40 mg PO DAILY
Polyethylene Glycol Powder [Miralax] Med 10/06/23 12:00 Active
17 grams PO DAILY
Remove Patch [Remove Lidocaine Patch] Med 10/05/23 22:00 Active
See Dose Instructions REMOVE DAILY@2000
Trazodone [Desyrel] Med 10/05/23 13:24 Active
50 mg PO HSPRN PRN
Vitals:
Temp Pulse Resp BP Pulse Ox
98.6 F 75 17 95/62 99
10/06/23 06:55 10/06/23 13:45 10/06/23 13:45 10/06/23 11:24 10/06/23 08:00
Height 5 ft 3 in
Actual Weight 62.5 kg
Body Mass Index (BMI) 24.4
Physical Exam:
General Appearance/Observation: Well-developed, well-nourished individual in no apparent distress.
Pain/Comfort Assessment: Denies at the moment
Mood/Affect: Appropriate
Integumentary/Operative Site:
�� Pressure Ulcer Evaluation: absent over heels.
��
�� Other Type of Wound: absent
��
Eyes: Conjunctiva/Lids: normal ��� Pupils: pupils equal round
Ears/Nose/Throat: oral mucosa moist,� throat clear.������������ Lips/Teeth/Gums: normal
Neck: No muscle spasm or tenderness
Cardiovascular: Heart: regular, no murmur
Pulses: dorsalis pedis 1+ bilaterally
Respiratory: Respiratory Effort/Chest Expansion: normal ������� Auscultation: Clear to auscultation bilaterally
Gastrointestinal: abdomen not tender, no distension, normal abdominal bowel sounds
Genitourinary: No Marr
Extremities: Edema: None Cyanosis: None Trophic changes: None
Neurology Exam:
Orientation: Alert, Oriented to self, Time, Place
Memory: Intact for immediate medical concerns
Higher cortical function
Comprehension: Intact
Two step command: Intact
Naming: Intact
Cranial Nerves:
�� CNII: Pupillary light reflex: Intact��� Visual Field: NT
�� CN III, IV, : Extraocular muscles: Intact
�� CN V: Facial Sensation at Forehead: Intact, Maxilla: Intact, Mandible: Intact
�� CN VII: Facial movement: Symmetric
�� CN VIII: Hearing: Normal
�� CN IX/X: Speech & swallow: Normal, Position of Uvula: Midline
�� CN XI: Shoulder shrug: Symmetric
�� CN XII: Tongue protrusion: Midline
Sensory:
�� Light touch: Intact in bilateral upper and lower extremities
��
Reflexes:
�� Biceps: 1+ bilaterally
�� Brachioradialis: 1+ bilaterally
�� Triceps: 1+ bilaterally
�� Patellar: 1+ bilaterally
�� Achilles: 1+ bilaterally
�� Babinski: Down going bilaterally
�� Anselmo: Negative bilaterally
Cerebellar: Dysmetria/Ataxia: None
Musculoskeletal:
Motor: (Manual muscle scale 0-5)
Muscle SA EF WE EE FF FA HF KE DF EHL PF
Right� 5 5 5 5 5 5 5 5 5
Left 5 5 5 5 5 5 5 5 5
Tone: Normal in all extremities
Range of Motion: Passively within normal limits in all extremities
Lab Results
Labs
WBC 7.7 10^3/uL (4.8-10.8) 10/06/23 04:26
RBC 3.36 10^6/uL (4.20-5.40) L 10/06/23 04:26
Hgb 10.9 g/dL (12.0-16.0) L 10/06/23 04:26
Hct 31.4 % (37.0-47.0) L 10/06/23 04:26
MCV 93.5 fL (81.0-99.0) 10/06/23 04:26
MCH 32.4 pg (27.0-31.0) H 10/06/23 04:26
MCHC 34.7 g/dL (33.0-37.0) 10/06/23 04:26
RDW 13.8 % (11.5-14.5) 10/06/23 04:26
Plt Count 280 10^3/uL (130-400) 10/06/23 04:26
MPV 9.4 fL (7.4-10.4) 10/06/23 04:26
Abs Immat Gran (auto) 0.0 10^3/uL (0-0.05) 10/05/23 09:29
Absolute Neuts (auto) 3.9 10^3/uL (1.4-6.5) 10/05/23 09:29
Absolute Lymphs (auto) 2.7 10^3/uL (1.2-3.4) 10/05/23 09:29
Absolute Monos (auto) 0.7 10^3/uL (0.1-0.6) H 10/05/23 09:29
Absolute Eos (auto) 0.2 10^3/uL (0-0.7) 10/05/23 09:29
Absolute Basos (auto) 0.1 10^3/uL (0-0.2) 10/05/23 09:
Immature Gran % 0.3 % (0-0.5) 10/05/23 09:
Neutrophils % 52.1 % (42.2-75.2) 10/05/23 09:
Lymphocytes % 35.2 % (20.5-51.1) 10/05/23 09:
Monocytes % 8.8 % (1.7-9.3) 10/05/23 09:
Eosinophils % 2.5 % (0-6) 10/05/23:
Basophils % 1.1 % (0-2) 10/05/23:
Nucleated RBC % 0 % 10/05/23 09:29
PT 13.7 Sec (11.4-14.6) 10/06/23 04:26
INR 1.05 10/06/23 04:26
APTT 26.4 Sec (23.4-35.0) 10/06/23 04:26
Sodium 139 mmol/L (135-145) 10/06/23 04:26
Potassium 3.9 mmol/L (3.5-5.1) 10/06/23 04:26
Chloride 105 mmol/L (98-107) 10/06/23 04:26
Carbon Dioxide 26 mmol/L (22-30) 10/06/23 04:26
BUN 16 mg/dl (7-17) 10/06/23 04:26
Creatinine 0.9 mg/dL (0.6-1.0) 10/06/23 04:26
Estimated Creat Clear 40 ml/min 10/06/23 04:26
eGFR > 60.00 10/06/23 04:26
Glucose 104 mg/dl (70-99) H 10/06/23 04:26
Hemoglobin A1c 5.6 % (4.0-5.6) 10/05/23:29
Calcium 9.7 mg/dl (8.4-10.2) 10/06/23 04:26
Magnesium 1.9 mg/dl (1.6-2.3) 10/05/23 09:29
Total Bilirubin 0.3 mg/dl (0.2-1.3) 10/05/23 09:29
AST 27 U/L (14-36) 10/05/23 09:29
ALT 13 U/L (0-35) 10/05/23 09:29
Alkaline Phosphatase 52 U/L (38-126) 10/05/23 09:29
Total Protein 7.5 g/dl (6.3-8.2) 10/05/23 09:29
Albumin 4.2 g/dl (3.5-5.0) 10/05/23 09:29
Triglycerides 134 mg/dl (10-149) 10/06/23 04:26
Total Cholesterol 144 mg/dl (50-199) 10/06/23 04:26
LDL Cholesterol, Calc 79 mg/dl 10/06/23 04:26
VLDL Cholesterol, Calc 26 mg/dl (0-30) 10/06/23 04:26
HDL Cholesterol 39 mg/dl 10/06/23 04:26
POC Glucose 146 mg/dl (70-99) H 10/05/23 09:20
�
Diagnostic Results: as per HPI
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
expressive aphasia and dysphagia almost back to baseline with mild expressive aphasia. Imaging with no acute infarcts.
Plan
PT/OT to increase independence with ADLs, improve balance, coordination, endurance, strength, mobility, community reintegration, decreased burden of care on others and family education.
CVA: MRI, MRA negative for acute findings- neuro: started on (asparin 81,mg + plavix x 21 days) then continue ASA 81mg daily indefinitely
Secondary prophylaxis with asa,statin, plavix, and blood pressure control (SBP less than 180 and diastolic less than 100 to participate with therapy for ischemic stroke). Continue to monitor neurologic status.
Dysphagia: speech evaluation-resolved- per speech can be on regular diet with thin liquids
Expressive Aphasia: speech evaluation-improved
HTN: labetolol 5mg IV q 6 hours prn, monitor closely
HLD: Atorvastatin 80mg qd
Anemia: Likely multifactorial.� Continue to monitor.
Psych/anxiety/depression: lexapro 20mg, lorazepam prn.� Monitor mood, adjust medications as needed.
Skin: monitor for pressure sores/rashes/lesions.
Chronic Pain/multiple fractures: acetaminophen as needed, morphine IV prn, vicodin prn- switch to po meds when able.
Bowel: Colace and Senna, PRN bisacodyl.
Bladder: Time void, PVRs, PRN straight cath.
GI Prophylaxis: Pantoprazole 40mg qd
Psych/insomnia: trazodone 50mg hs prn
DVT Prophylaxis: Mechanical and lovenox
Pulmonary: Incentive spirometry
Safety: Continue to reinforce assistance with all transfers.
Code Status:� Full code
Dispo (date/plan/equipment needs): Home with family care.� Social history reviewed.
Functional and Medical Goals: Modified Independent with ADL�s, ambulation, transfers
Discharge Destination: Home with Care vs SNF
Summary of recommendations:Patient would benefit from continued PT/OT/Speech at SNF versus Home with care as she has made progress with ambulation and ADLs functions.
CVA: MRI, MRA negative for acute findings- neuro: started on (asparin 81,mg + plavix x 21 days) then continue ASA 81mg daily indefinitely
Secondary prophylaxis with asa,statin, plavix, and blood pressure control (SBP less than 180 and diastolic less than 100 to participate with therapy for ischemic stroke). Continue to monitor neurologic status.
Dysphagia: speech evaluation- per speech- no further dysphagia therapy warranted. cont reg. solid with thin. Continue cognitive linguistic and higher tasks therapy
Expressive Aphasia: speech evaluation- much improved
HTN: labetolol 5mg IV q 6 hours prn - to be converted to PO meds
HLD: Atorvastatin 80mg qd
Chronic Pain/multiple fractures: acetaminophen as needed, morphine prn- switch to po meds when able. To be converted to PO meds
Bowel: Colace and Senna, PRN bisacodyl.
Bladder: Time void, PVRs, PRN straight cath.
GI Prophylaxis: Pantoprazole 40mg qd
DVT Prophylaxis: Mechanical and lovenox
Pulmonary: Incentive spirometry
Safety: Continue to reinforce assistance with all transfers.
Thank you for allowing me to care for your patient. Please contact me with any questions or concerns.
This note was dictated using a voice recognition system. Please excuse any typographical errors from dishwasher preparer. If you believe there are any discrepancies, please notify our office.

Documented by User: Jabier Winslow MD 10/07/23 16:56
Consultation - Medical
-
Referring Provider: Dr. Packer
Chief Complaint: CVA
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
on 10/05/23 with abrupt onset expressive aphasia while at outpatient physical therapy.Associated symptoms include dysphagia. She denies any difficulty with weakness. She is s/p TNK and has nearly returned to baseline with minima word finding in
conversations . Neurology assess that most likely due to thromboembolic event as well as mild hypertension and hypercholesterolemia.
CT scan of head- compatible with diffuse cortical atrophy with nonspecific white matter changes.
MRI-No acute intracranial abnormality noted. No acute infarct. Atrophy. Chronic microvascular white matter ischemic disease.
Head MRA:No hemodynamically significant stenosis or branch occlusion. Possible 2 mm aneurysm projecting from the lateral margin of the proximal left cavernous ICA.
Neck MRA:Minor proximal right and mild proximal left ICA plaque. No hemodynamically significant stenosis.
Past Medical History: CVA, Hypercholesterolemia and Other (ocular rosacea, anxiety, chronic back pain, Raynaud's, diverticulosis, GI bleed )
Procedure History: T&A, Skin Cancer Excision
Family History: Mother with dementia, father with T-cell lymphoma, Parkinson's and prostate cancer
Social History:
Functional Level Premorbidly: Independent with all activities
Functional Level Currently: Bed mobility -supervision, transfer-supervision, grooming-supervision, toileting- min assist, upper body dressing- min assist ambulated 100 feet x 2 with rolling walker at supervision
Tobacco: former, over 60 years ago
Alcohol: Denies
Drug use: Denies
Lives with: alone
24-hour assistance available: caregivers 3x/week
Number of floors: 2
# steps to enter: 4
# steps to second floor:
Potential First floor set up:
Driving: yes
Occupation: retired
�
Allergies:
Allergy/AdvReac Type Severity Reaction Status Date / Time
Iodinated Contrast Media Allergy Severe Unknown Verified 10/05/23 09:37
[IV Dye, Iodine Containing]
povidone-iodine Allergy Unknown Verified 09/16/23 03:04
[From Betadine]
red dye [Red Dye] Allergy Unknown Verified 09/16/23 03:04
soap [From Betadine] Allergy Unknown Verified 09/16/23 03:04
Review of Systems:
Constitutional: (x) Normal _
Eye: (x) Normal _
Ear/Nose/Throat: (x) Normal _
Respiratory: (x) Normal _
Cardiovascular: (x) Normal _
Gastrointestinal: (x) Normal _
Genitourinary: (x) Normal _
Musculoskeletal: (x) Normal _
Integumentary: (x) Normal _
Neurologic: (x) aphasia
Psychiatric: (x) Normal _
Endocrine: (x) Normal _
Hematologic/Lymphatic: (x) Normal _
Allergic/Immunologic: (x) Normal _
Medications:
Active Current Visit Medication List
Category Date Time Status
Acetaminophen [Tylenol/Feverall] Med 10/05/23 11:12 Active
650 mg RECTAL Q4HPRN PRN
Acetaminophen [Tylenol] Med 10/05/23 11:07 Active
650 mg PO Q4HPRN PRN
Atorvastatin [Lipitor] Med 10/05/23 18:00 Active
80 mg PO QPM
Calcium Carbonate/Vitamin D3 [Oscal 500 + D] Med 10/06/23 08:00 Active
500 mg PO DAILY
Cyanocobalamin [Vitamin B-12] Med 10/06/23 08:00 Active
100 mcg PO DAILY
Docusate W/Senna [Senokot-S] Med 10/05/23 14:45 Active
2 tablet PO BID
Escitalopram Oxalate [Lexapro] Med 10/06/23 08:00 Active
20 mg PO DAILY
Hydrocodone 7.5/APAP 325 [[place] 7.5/325] Med 10/05/23 13:32 Active
1 tablet PO TIDPRN PRN
Labetalol HCl [Trandate] Med 10/05/23 11:07 Active
5 mg IV Q6HPRN PRN
Lidocaine [Lidocaine 4% Patch] Med 10/05/23 10:00 Active
1 patch TOPICAL DAILY
Magnesium Hydroxide [Milk of Magnesia] Med 10/05/23 11:07 Active
30 ml PO BIDPRN PRN
Morphine Sulfate Med 10/05/23 11:12 Active
2 mg IV Q4HPRN PRN
Ondansetron Injectable [Zofran] Med 10/05/23 11:12 Active
4 mg IV Q6HPRN PRN
Pantoprazole [Protonix] Med 10/06/23 08:00 Active
40 mg PO DAILY
Polyethylene Glycol Powder [Miralax] Med 10/06/23 12:00 Active
17 grams PO DAILY
Remove Patch [Remove Lidocaine Patch] Med 10/05/23 22:00 Active
See Dose Instructions REMOVE DAILY@1999
Trazodone [Desyrel] Med 10/05/23 13:24 Active
50 mg PO HSPRN PRN
Vitals:
Temp Pulse Resp BP Pulse Ox
98.6 F 75 17 95/62 99
10/06/23 06:55 10/06/23 13:45 10/06/23 13:45 10/06/23 11:24 10/06/23 08:00
Height 5 ft 3 in
Actual Weight 62.5 kg
Body Mass Index (BMI) 24.4
Physical Exam:
General Appearance/Observation: Well-developed, well-nourished individual in no apparent distress.
Pain/Comfort Assessment: Denies at the moment
Mood/Affect: Appropriate
Integumentary/Operative Site:
�� Pressure Ulcer Evaluation: absent over heels.
��
�� Other Type of Wound: absent
��
Eyes: Conjunctiva/Lids: normal ��� Pupils: pupils equal round
Ears/Nose/Throat: oral mucosa moist,� throat clear.������������ Lips/Teeth/Gums: normal
Neck: No muscle spasm or tenderness
Cardiovascular: Heart: regular, no murmur
Pulses: dorsalis pedis 1+ bilaterally
Respiratory: Respiratory Effort/Chest Expansion: normal ������� Auscultation: Clear to auscultation bilaterally
Gastrointestinal: abdomen not tender, no distension, normal abdominal bowel sounds
Genitourinary: No Marr
Extremities: Edema: None Cyanosis: None Trophic changes: None
Neurology Exam:
Orientation: Alert, Oriented to self, Time, Place
Memory: Intact for immediate medical concerns
Higher cortical function
Comprehension: Intact
Two step command: Intact
Naming: Intact
Cranial Nerves:
�� CNII: Pupillary light reflex: Intact��� Visual Field: NT
�� CN III, IV, : Extraocular muscles: Intact
�� CN V: Facial Sensation at Forehead: Intact, Maxilla: Intact, Mandible: Intact
�� CN VII: Facial movement: Symmetric
�� CN VIII: Hearing: Normal
�� CN IX/X: Speech & swallow: Normal, Position of Uvula: Midline
�� CN XI: Shoulder shrug: Symmetric
�� CN XII: Tongue protrusion: Midline
Sensory:
�� Light touch: Intact in bilateral upper and lower extremities
��
Reflexes:
�� Biceps: 1+ bilaterally
�� Brachioradialis: 1+ bilaterally
�� Triceps: 1+ bilaterally
�� Patellar: 1+ bilaterally
�� Achilles: 1+ bilaterally
�� Babinski: Down going bilaterally
�� Anselmo: Negative bilaterally
Cerebellar: Dysmetria/Ataxia: None
Musculoskeletal:
Motor: (Manual muscle scale 0-5)
Muscle SA EF WE EE FF FA HF KE DF EHL PF
Right� 5 5 5 5 5 5 5 5 5
Left 5 5 5 5 5 5 5 5 5
Tone: Normal in all extremities
Range of Motion: Passively within normal limits in all extremities
Lab Results
Labs
WBC 7.7 10^3/uL (4.8-10.8) 10/06/23 04:26
RBC 3.36 10^6/uL (4.20-5.40) L 10/06/23 04:26
Hgb 10.9 g/dL (12.0-16.0) L 10/06/23 04:26
Hct 31.4 % (37.0-47.0) L 10/06/23 04:26
MCV 93.5 fL (81.0-99.0) 10/06/23 04:26
MCH 32.4 pg (27.0-31.0) H 10/06/23 04:
MCHC 34.7 g/dL (33.0-37.0) 10/06/23 04:
RDW 13.8 % (11.5-14.5) 10/06/23 04:
Plt Count 280 10^3/uL (130-400) 10/06/23 04:
MPV 9.4 fL (7.4-10.4) 10/06/23 04:
Abs Immat Gran (auto) 0.0 10^3/uL (0-0.05) 10/05/23 09:
Absolute Neuts (auto) 3.9 10^3/uL (1.4-6.5) 10/05/23 09:
Absolute Lymphs (auto) 2.7 10^3/uL (1.2-3.4) 10/05/23 09:
Absolute Monos (auto) 0.7 10^3/uL (0.1-0.6) H 10/05/23 09:29
Absolute Eos (auto) 0.2 10^3/uL (0-0.7) 10/05/23 09:
Absolute Basos (auto) 0.1 10^3/uL (0-0.2) 10/05/23 09:29
Immature Gran % 0.3 % (0-0.5) 10/05/23 09:
Neutrophils % 52.1 % (42.2-75.2) 10/05/23 09:
Lymphocytes % 35.2 % (20.5-51.1) 10/05/23 09:
Monocytes % 8.8 % (1.7-9.3) 10/05/23 09:
Eosinophils % 2.5 % (0-6) 10/05/23 09:
Basophils % 1.1 % (0-2) 10/05/23 09:
Nucleated RBC % 0 % 10/05/23 09:
PT 13.7 Sec (11.4-14.6) 10/06/23 04:26
INR 1.05 10/06/23 04:26
APTT 26.4 Sec (23.4-35.0) 10/06/23 04:26
Sodium 139 mmol/L (135-145) 10/06/23 04:26
Potassium 3.9 mmol/L (3.5-5.1) 10/06/23 04:26
Chloride 105 mmol/L (98-107) 10/06/23 04:26
Carbon Dioxide 26 mmol/L (22-30) 10/06/23 04:26
BUN 16 mg/dl (7-17) 10/06/23 04:26
Creatinine 0.9 mg/dL (0.6-1.0) 10/06/23 04:26
Estimated Creat Clear 40 ml/min 10/06/23 04:26
eGFR > 60.00 10/06/23 04:26
Glucose 104 mg/dl (70-99) H 10/06/23 04:26
Hemoglobin A1c 5.6 % (4.0-5.6) 10/05/23 09:29
Calcium 9.7 mg/dl (8.4-10.2) 10/06/23 04:26
Magnesium 1.9 mg/dl (1.6-2.3) 10/05/23 09:29
Total Bilirubin 0.3 mg/dl (0.2-1.3) 10/05/23 09:29
AST 27 U/L (14-36) 10/05/23 09:29
ALT 13 U/L (0-35) 10/05/23 09:29
Alkaline Phosphatase 52 U/L (38-126) 10/05/23 09:29
Total Protein 7.5 g/dl (6.3-8.2) 10/05/23 09:29
Albumin 4.2 g/dl (3.5-5.0) 10/05/23 09:29
Triglycerides 134 mg/dl (10-149) 10/06/23 04:26
Total Cholesterol 144 mg/dl (50-199) 10/06/23 04:26
LDL Cholesterol, Calc 79 mg/dl 10/06/23 04:26
VLDL Cholesterol, Calc 26 mg/dl (0-30) 10/06/23 04:26
HDL Cholesterol 39 mg/dl 10/06/23 04:26
POC Glucose 146 mg/dl (70-99) H 10/05/23 09:20
�
Diagnostic Results: as per HPI
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
expressive aphasia and dysphagia almost back to baseline with mild expressive aphasia. Imaging with no acute infarcts.
Plan
PT/OT to increase independence with ADLs, improve balance, coordination, endurance, strength, mobility, community reintegration, decreased burden of care on others and family education.
CVA: MRI, MRA negative for acute findings- neuro: started on (asparin 81,mg + plavix x 21 days) then continue ASA 81mg daily indefinitely
Secondary prophylaxis with asa,statin, plavix, and blood pressure control (SBP less than 180 and diastolic less than 100 to participate with therapy for ischemic stroke). Continue to monitor neurologic status.
Dysphagia: speech evaluation-resolved- per speech can be on regular diet with thin liquids
Expressive Aphasia: speech evaluation-improved
HTN: labetolol 5mg IV q 6 hours prn, monitor closely
HLD: Atorvastatin 80mg qd
Anemia: Likely multifactorial.� Continue to monitor.
Psych/anxiety/depression: lexapro 20mg, lorazepam prn.� Monitor mood, adjust medications as needed.
Skin: monitor for pressure sores/rashes/lesions.
Chronic Pain/multiple fractures: acetaminophen as needed, morphine IV prn, vicodin prn- switch to po meds when able.
Bowel: Colace and Senna, PRN bisacodyl.
Bladder: Time void, PVRs, PRN straight cath.
GI Prophylaxis: Pantoprazole 40mg qd
Psych/insomnia: trazodone 50mg hs prn
DVT Prophylaxis: Mechanical and lovenox
Pulmonary: Incentive spirometry
Safety: Continue to reinforce assistance with all transfers.
Code Status:� Full code
Dispo (date/plan/equipment needs): Home with family care.� Social history reviewed.
Functional and Medical Goals: Modified Independent with ADL�s, ambulation, transfers
Discharge Destination: Home Care vs SNF
Summary of recommendations:Patient would benefit from continued PT/OT/Speech likely at Home versus possible SNF as she has made progress with ambulation and ADLs functions.
CVA: MRI, MRA negative for acute findings- neuro: started on (asparin 81,mg + plavix x 21 days) then continue ASA 81mg daily indefinitely
Secondary prophylaxis with asa,statin, plavix, and blood pressure control (SBP less than 180 and diastolic less than 100 to participate with therapy for ischemic stroke). Continue to monitor neurologic status.
Dysphagia: speech evaluation- per speech- no further dysphagia therapy warranted. cont reg. solid with thin. Continue cognitive linguistic and higher tasks therapy
Expressive Aphasia: speech evaluation- much improved
HTN: labetolol 5mg IV q 6 hours prn - to be converted to PO meds
HLD: Atorvastatin 80mg qd
Chronic Pain/multiple fractures: acetaminophen as needed, morphine prn- switch to po meds when able. To be converted to PO meds
Bowel: Colace and Senna, PRN bisacodyl.
Bladder: Time void, PVRs, PRN straight cath.
GI Prophylaxis: Pantoprazole 40mg qd
DVT Prophylaxis: Mechanical and lovenox
Pulmonary: Incentive spirometry
Safety: Continue to reinforce assistance with all transfers.
Attending note:
Patient was seen and examined by me this afternoon in her room. Discussed with Angelique Rubio PA-C and agree with above note, examination and plan as outlined. I participated in the medical decision making on this patient. Bianca had some
aphasia during outpatient therapy session, and could have been some TIA vs. vascular insufficiency and resolved after TNK. MRI without any acute abnormalities or infarct. She appears to be back or nearly back to baseline. Ambulated 100' x2 today
with therapy with walker. Uses walker at home and has home health assistants 3days/week at home. No need or role for acute rehabilitation at this time. Could likely be able to go home with home care/home PT/OT with transition back to outpatient
therapy program.
Thank you for allowing me to care for your patient. Please contact me with any questions or concerns.
This note was dictated using a voice recognition system. Please excuse any typographical errors from dishwasher preparer. If you believe there are any discrepancies, please notify our office.
[2023-10-06] MEDS: MIRALAX PO (14:34)
--- NOTE | 2023-10-06 15:56 | PTOTSP ---
TAPING MACHINE OPERATOR Note
Quick Aphasia Battery Form 1 Score = 9.50 (WFL). However, very mild expressive aphasia noted with structured tasks and conversation per this clinician's judgement. 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
MOCA Version 8.1 completed. Total Score = 18/30 (where normal is 26 or higher) with changes to memory, executive function, attention, expressive language (minimal). Supervision with higher level cognitive tasks warranted. Outpatient
rehabilitation for further evaluation and therapy warranted.
No signs of oral/pharyngeal dysphagia noted. Patient is appropriate to continue Regular, Thin liquid diet at this time.
Recommend:
1. Continued cognitive linguistic and language evaluation/therapy at the acute care level.
2. Cognitive linguistic evaluation and therapy after D/C from the acute care level.
3. Consider supervision/assistance with higher level cognitive tasks given changes noted above.
4. No further dysphagia therapy warranted.
--- NOTE | 2023-10-06 17:20 | PTCARENOTE ---
Report called to Adela HENDRICKSON. Pt to transfer to Room 415-1.
[2023-10-06] MEDS: PLAVIX 75 MG PO (17:26)
[2023-10-06] MEDS: LIPITOR 80 MG PO (17:26)
[2023-10-06] MEDS: ASPIR LOW (ENTERIC COATED) 81 MG PO (17:26)
[2023-10-06] MEDS: LOVENOX 40 MG SC (17:27)
--- NOTE | 2023-10-06 18:30 | PTCARENOTE ---
Received from ICU into room 415-1. AOx3. NIHSS=0, unchanged from previous RN's assessment. Oriented to room and updated on plan of care.
[2023-10-06] MEDS: SENOKOT-S PO (23:09)
[2023-10-07 03:04] VITALS: BP 110/62
[2023-10-07] MEDS: NORCO 7.5/325 1 TABLET PO ×2 (05:33→14:55)
[2023-10-07 06:45] LABS: Hematocrit 33.1 % (37.0-47.0); Hemoglobin 11.1 g/dL (12.0-16.0); Mean Corp Hgb Conc. 33.5 g/dL (33.0-37.0); Mean Corpuscular Hgb 32.2 pg (27.0-31.0); Mean Corpuscular Volume 95.9 fL (81.0-99.0); Mean Platelet Volume 9.9 fL (7.4-10.4); Platelet Count 281 10^3/uL (130-400); Red Blood Cell Count 3.45 10^6/uL (4.20-5.40); Red Cell Dist. Width 13.8 % (11.5-14.5); White Blood Cell Count 6.1 10^3/uL (4.8-10.8)
[2023-10-07 07:35] VITALS: BP 105/57
[2023-10-07] MEDS: LEXAPRO 20 MG PO (07:55)
[2023-10-07] MEDS: OSCAL 500 + D 500 MG PO (07:55)
[2023-10-07] MEDS: LIDOCAINE 4% PATCH 1 PATCH TOPICAL (07:55)
[2023-10-07] MEDS: PROTONIX 40 MG PO (07:56)
[2023-10-07] MEDS: SENOKOT-S 2 TABLET PO (07:56)
[2023-10-07] MEDS: PLAVIX 75 MG PO (07:56)
[2023-10-07] MEDS: ASPIR LOW (ENTERIC COATED) 81 MG PO (07:56)
[2023-10-07] MEDS: VITAMIN B-12 100 MCG PO (07:56)
[2023-10-07] MEDS: MIRALAX 17 GRAMS PO (07:56)
--- NOTE | 2023-10-07 08:51 | W.PN.HOSP.TC ---
Today's Communication/Plan
-
Discharge tomorrow
Assessment / Plan
Assessment / Plan
83-year-old female with a past medical history of CVA, GERD, anxiety/depression, GI bleed secondary to duodenal ulcer, and chronic pain syndrome on chronic opioids presents with acute onset of expressive aphasia. Patient was seen by her physical
therapist at 9 AM today, who noted her to have difficulty with her speech. Associated symptoms include dysphagia. She denies any difficulty with weakness. She denies headache, denies nausea, denies vomiting. She was seen in the emergency room,
and received TNK at 9:53 AM. She lives alone, and has a aide visiting 3 times a week.
#Acute aphasia
#Probable CVA
Appreciate neurology input, s/p TNK 10/04
Brain MRI negative for acute intracranial abnormality
LDL 79, hemoglobin A1c 5.6. Echo reviewed
Speech, physical, occupational therapies
Increased atorvastatin to 80 mg at bedtime
Neurology recommends aspirin and Plavix for 21 days, then continue aspirin 81 mg only
Will need outpatient cognitive assessment/SPL
PT rec HH. Plan for discharge tomorrow
#History of duodenal ulcers
#Gastroesophageal reflux disease
Continue PPI
#Chronic pain syndrome with chronic opioid dependency
#Multiple vertebral compression fractures
Continue home hydrocodone�acetaminophen 1 tablet 3 times daily as needed
#Osteoporosis
Continue calcium with vitamin D
#Anxiety/depression
Continue SSRI, trazodone as needed
#Constipation
Continue home sennosides�docusate
Added MiraLAX, add lactulose
DVT prophylaxis�subcu Lovenox
Full code
Total time spent to see the patient on the floor, examine the patient, review data and lab results, discuss treatment plan with patient, nursing staff around 38 minutes.
Physical Exam
General: Elderly, no acute distress
HEENT: Normocephalic, Atraumatic, EOMI, MMM
Respiratory: Clear to Auscultation bilaterally
Cardiac: Normal S1/S2, Regular Rate and Rhythm
GI: Soft, Nontender, Nondistended, Normal Bowel Sounds
Extremities: No Clubbing, Cyanosis, or Edema
Neuro: Expressive aphasia nearly resolved, speech almost normal
Psych: Calm, Cooperative
Anticipated Discharge: Within 24 hours
Subjective/Interval History
-
Date of Service: October 06, 2023
Speech continues to improve, and is almost at baseline. No fever, no vomiting. She is constipated.
Objective Data
-
Labs:
Laboratory Results
10/06/23
04:26
WBC 7.7
Hgb 10.9 L
Hct 31.4 L
Plt Count 280
PT 13.7
INR 1.05
APTT 26.4
Sodium 139
Potassium 3.9
Chloride 105
Carbon Dioxide 26
BUN 16
Creatinine 0.9
Glucose 104 H
Calcium 9.7
Vital Signs:
Vital Signs
Temp Pulse Resp BP Pulse Ox
98.3 F 69 22 132/102 99
10/06/23 15:29 10/06/23 14:30 10/06/23 14:30 10/06/23 14:00 10/06/23 08:00
I&O
10/05/23 10/06/23 10/07/23
06:59 06:59 06:59
Intake Total 240 / 240 120 / 120
Output Total 400 / 400
Balance -160 / -160 120 / 120
--- NOTE | 2023-10-07 09:41 | VNURNOTE ---
Chart reviewed. Patient had [facility] recently and services ended 09/20. New referral placed in [facility].
[2023-10-07 11:07] VITALS: BP 93/43
[2023-10-07] MEDS: DUPHALAC/CHRONULAC 20 GRAMS PO (11:53)
--- NOTE | 2023-10-07 12:16 | VNURNOTE ---
Home Health Liaison met with patient at bedside to discuss [facility] nurse/therapy, visits, schedule and homebound status. Patient is agreeable and understands that visits at home will be 1-2 x per week to assess and teach medical management. Ultimately,
her goal is to return to outpt PT.
Patient is aware that [facility] will contact them for start of care within a few days after discharge from .
[facility] referral accepted in [facility].
--- NOTE | 2023-10-07 13:14 | W.PN.NEURO.1 ---
Addendum entered and electronically signed by Jo Barragan DO 10/07/23 13:43:
Reviewed with her daughter Cierra, agreeable with plan.
Original Note:
Today's Communication / Plan
-
ok for d/c from my standpoint
Neuro Assessment/Plan
Assessment
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
none in conversation today) but otherwise feels back to normal and her NIHSS is 0.
Most likely due to thromboembolic event as well as mild hypertension and hypercholesterolemia.
MRI brain was negative for stroke.
MRAs:
No hemodynamically significant stenosis or branch occlusion.
Possible 2 mm aneurysm projecting from the lateral margin of the proximal left cavernous ICA. If indicated, this may be confirmed or excluded on either CT or MR IV contrast enhanced angiography.
Minor proximal right and mild proximal left ICA plaque. No hemodynamically significant stenosis.
Plan
Recommendations:
�
� BP goal is normotension
� reviewed MRI brain--negative for acute stroke
�
� started DAPT; continue x 21 days, then d/c Plavix and continue ASA 81mg daily indefinitely
continue telemetry monitoring
� continue atorvastatin to 80 mg at bedtime; LDL is 79; goal after stroke is <70
� goal blood glucose levels for patient would be less than 180 mg/dL; HgbA1C WNL AT 5.6
� Speech, PT, OT evaluations needed
� DVT prophylaxis with Enoxaparin subcutaneous for DVT prophylaxis
� echo completed; showed no CSE
continue NIHSS, neurochecks
Neurology is signing off.
Can f/u in our office with Dr. Yeboah or CORI Lynn in 3 mos
Subjective/Objective
Subjective Data
Date of Service: October 07, 2023
feels basically back to normal; still searching for some words
Objective Data
Vital Signs
Temp Pulse Resp BP Pulse Ox
98.1 F 73 17 93/43 95
10/07/23 11:07 10/07/23 11:07 10/07/23 11:07 10/07/23 11:07 10/07/23 11:07
Lab Results
10/07/23 06:04
10/06/23 04:26
PT 13.7 Sec (11.4-14.6) 10/06/23 04:26
INR 1.05 10/06/23 04:26
APTT 26.4 Sec (23.4-35.0) 10/06/23 04:26
Sodium 139 mmol/L (135-145) 10/06/23 04:26
Potassium 3.9 mmol/L (3.5-5.1) 10/06/23 04:26
BUN 16 mg/dl (7-17) 10/06/23 04:26
Glucose 104 mg/dl (70-99) H 10/06/23 04:26
Calcium 9.7 mg/dl (8.4-10.2) 10/06/23 04:26
LDL Cholesterol, Calc 79 mg/dl 10/06/23 04:26
Patient Allergies
Iodinated Contrast Media [IV Dye, Iodine Containing] Allergy (Severe, Verified 10/05/23 09:37)
Unknown
povidone-iodine [From Betadine] Allergy (Verified 09/16/23 03:04)
Unknown
red dye [Red Dye] Allergy (Verified 09/16/23 03:04)
Unknown
soap [From Betadine] Allergy (Verified 09/16/23 03:04)
Unknown
Physical Exam
-
General: Well Developed, Well Nourished and No Apparent Distress
Extended Neurological Exam
Mood & Affect: Mood Unremarkable and Affect Unremarkable
Attention Span & Concentration: Awake, Alert and Interactive
Memory: Unremarkable
Tremor: Hand Tremor Absent and Head Tremor Absent
Speech: Quality Unremarkable, Quantity Unremarkable and Rate of Production Unremarkable
Cranial Nerve II: Left Eye: Pupillary Reactivity Unremarkable and Pupillary Size Unremarkable
Cranial Nerve II: Right Eye: Pupillary Reactivity Unremarkable and Pupillary Size Unremarkable
Cranial Nerves III, IV, : Extraocular Movement: Extraocular Movement Full in all Directions
Cranial Nerve V: Facial Sensation: Facial Sensation Unremarkable to Cold
Cranial Nerve VII: Facial Symmetry: Normal Facial Symmetry
Cranial Nerve VIII: Hearing: Unremarkable Hearing to Normal Conversational Volume
Cranial Nerves IX, X: Palate Movement: Palate Elevation Symmetric
Cranial Nerve XI: Shoulder Shrug: Unremarkable
Cranial Nerve XII: Tongue Protusion: Midline
Muscle Strength, Overall: Full Throughout
Deep Tendon Reflexes: Unremarkable Throughout
Cold Sensation: Unremarkable
Coordination: Lidasn-ldwk-yjagve Testing Unremarkable
--- NOTE | 2023-10-07 14:15 | CM ---
Patient seen bedside, patient confirmed she receives services from [facility] [place]. CM spoke with [facility] to provide update on patient status, instructed to call Praneeth ([phone]) caregiver/friend upon discharge. Patient has been
accepted for services through [facility]. IMM reviewed, signed, placed in chart. CM will continue to follow for all discharge planning needs.
Plan; home with [facility] and [facility], call Praneeth ([phone]) upon discharge.
[2023-10-07 15:16] VITALS: BP 106/84
[2023-10-07] MEDS: LIPITOR 80 MG PO (17:10)
[2023-10-07] MEDS: LOVENOX 40 MG SC (17:10)
[2023-10-07 19:00] VITALS: BP 100/60
[2023-10-07] MEDS: SENOKOT-S PO (22:15)
[2023-10-07 23:00] VITALS: BP 98/53
[2023-10-08 02:51] VITALS: BP 103/61
[2023-10-08] MEDS: NORCO 7.5/325 1 TABLET PO (04:24)
[2023-10-08 07:00] VITALS: BP 97/61
--- NOTE | 2023-10-08 07:34 | W.PN.HOSP.TC ---
Today's Communication/Plan
-
Discharge home today
Assessment / Plan
Assessment / Plan
83-year-old female with a past medical history of CVA, GERD, anxiety/depression, GI bleed secondary to duodenal ulcer, and chronic pain syndrome on chronic opioids presents with acute onset of expressive aphasia. Patient was seen by her physical
therapist at 9 AM today, who noted her to have difficulty with her speech. Associated symptoms include dysphagia. She denies any difficulty with weakness. She denies headache, denies nausea, denies vomiting. She was seen in the emergency room,
and received TNK at 9:53 AM. She lives alone, and has a aide visiting 3 times a week.
#Acute aphasia
#Probable CVA
Appreciate neurology input, s/p TNK 10/04
Brain MRI negative for acute intracranial abnormality
LDL 79, hemoglobin A1c 5.6. Echo reviewed
Speech, physical, occupational therapies
Increased atorvastatin to 80 mg at bedtime
Neurology recommends aspirin and Plavix for 21 days, then continue aspirin 81 mg only
Will need outpatient cognitive assessment/SPL
PT rec HH. Stable for dc home today, f/u w/ PCP in 1 week, neuro in 3-4 weeks
#History of duodenal ulcers
#Gastroesophageal reflux disease
Continue PPI
#Chronic pain syndrome with chronic opioid dependency
#Multiple vertebral compression fractures
Continue home hydrocodone�acetaminophen 1 tablet 3 times daily as needed
#Osteoporosis
Continue calcium with vitamin D
#Anxiety/depression
Continue SSRI, trazodone as needed
#Constipation
Continue home sennosides�docusate
Added MiraLAX, continue upon dc
Resolved, pt had BM
DVT prophylaxis�subcu Lovenox
Full code
Physical Exam
General: Elderly, no acute distress
HEENT: Normocephalic, Atraumatic, EOMI, MMM
Respiratory: Clear to Auscultation bilaterally
Cardiac: Normal S1/S2, Regular Rate and Rhythm
GI: Soft, Nontender, Nondistended, Normal Bowel Sounds
Extremities: No Clubbing, Cyanosis, or Edema
Neuro: Expressive aphasia nearly resolved, speech almost normal
Psych: Calm, Cooperative
Anticipated Discharge: Today
Subjective/Interval History
-
Date of Service: October 08, 2023
Speech almost normalized. No CP/SOB/palp. +BM. No fever, no N/V.
Objective Data
-
Vital Signs:
Vital Signs
Temp Pulse Resp BP Pulse Ox
98.1 F 72 16 103/61 98
10/08/23 02:51 10/08/23 02:51 10/08/23 02:51 10/08/23 02:51 10/08/23 02:51
I&O
10/07/23 10/08/23 10/09/23
06:59 06:59 06:59
Intake Total 120 / 120 600 / 600
Balance 120 / 120 600 / 600
[2023-10-08] MEDS: PROTONIX 40 MG PO (08:13)
[2023-10-08] MEDS: VITAMIN B-12 100 MCG PO (08:13)
[2023-10-08] MEDS: ASPIR LOW (ENTERIC COATED) 81 MG PO (08:13)
[2023-10-08] MEDS: OSCAL 500 + D 500 MG PO (08:13)
[2023-10-08] MEDS: PLAVIX 75 MG PO (08:13)
[2023-10-08] MEDS: LEXAPRO 20 MG PO (08:13)
[2023-10-08] MEDS: MIRALAX 17 GRAMS PO (08:14)
[2023-10-08] MEDS: SENOKOT-S 2 TABLET PO (08:14)
[2023-10-08] MEDS: LIDOCAINE 4% PATCH TOPICAL (08:23)
--- NOTE | 2023-10-08 09:56 | W.DCSUMMARY ---
Discharge Summary
Discharge Data
Date of Admission: 10/05/23
Date of Discharge: 10/08/23
-
Pending Results: No
Hospital Course
Discharge diagnosis:
Acute expressive aphasia
Aborted stroke
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
History of duodenal ulcers
Gastroesophageal reflux disease
Chronic pain syndrome on chronic opioid dependency
Multiple vertebral compression fractures
Constipation
Osteoporosis
Anxiety/depression
Consults: Neurology, cattle sticker
Brain MRI:
No acute intracranial abnormality noted. No acute infarct.
Atrophy. Chronic microvascular white matter ischemic disease.
Neck MRA:
Right carotid and vertebral circulation:
The common and internal carotid artery are patent. Minor proximal right ICA plaque without hemodynamically significant stenosis.
Left carotid and vertebral circulation:
The common and internal carotid artery patent. Mild proximal left ICA plaque without hemodynamically significant stenosis.
The left vertebral artery is patent.
Head MRA:
No cavernous ICA hemodynamically significant stenosis. At the lateral margin of the proximal left cavernous ICA, there is a 2 mm projection beyond the vessel margin, the appearance of which is suspicious for a tiny aneurysm (image 58 series 301).
The anterior, middle, and posterior cerebral arteries are patent, without hemodynamically significant stenosis, branch occlusion, or aneurysm.
The vertebral and basilar arteries are patent. No aneurysm of the posterior circulation.
Echo:
Technically difficult study
Fair image qulaity
Normal left ventricular size, wall thickness and systolic function.
LV ejection fraction is 55-60% .
Wall motion analysis is limited by the image quality.
Trace aortic regurgitation.
Trace tricuspid regurgitation.
Mild to moderate mitral stenosis.
Compared to the previous report 04/20/2022 the findings are similar except the
previous study demonstrated a mean mitral gradient of 9 mmHg. Most recent
study suggest gradient is 5 to 7 mmHg
Hospital course:
83-year-old female with a past medical history of CVA, GERD, anxiety/depression, GI bleed secondary to duodenal ulcer, and chronic pain syndrome on chronic opioids presented with acute onset of expressive aphasia, concerning for acute CVA. Patient
was seen by neurology, and received TNK in the emergency room.
Patient was seen in conjunction with the cattle sticker, and monitored in the ICU for 24 hours post TNK. Brain MRI was negative for acute CVA. Patient's speech completely normalized. Neurology recommends treatment with Plavix 75 mg daily for 21
days, and resuming her previous aspirin 81 mg daily. Her LDL was 79. Since the goal is less than 70 for patients with stroke, her atorvastatin was increased to 80 mg at bedtime. Her hemoglobin A1c was normal.
Patient has chronic back pain from vertebral compression fractures, and is on chronic opioids with dependency. She was resumed on her home pain medication regimen. She had constipation, this was treated with laxatives. She will be discharged on
increased doses of laxatives.
Patient was seen in conjunction with PT/OT/SPL, who recommended home care. SPL noted that she has mild cognitive impairment, and recommends outpatient SPL therapy and cognitive assessment.
Patient is medically stable and cleared by neurology for discharge. She needs to follow-up with her primary care doctor in 1 week, as well as neurology in the office in 3-4 weeks.
Disposition: Home with home care
Discharge planning: Required 48-minute
Discharge Plan
-
Patient Disposition: Home with Home Care
Discharge Diagnosis/Procedures: Aborted stroke status post tPA/TNK, expressive aphasia, cognitive impairment, chronic pain syndrome on chronic opioids, constipation
Condition: Good
Diet: Low Fat and Low Cholesterol
Driving Restrictions: No driving
Activity Restrictions/Additional Instructions:
Please follow-up with your primary care doctor in 1 week, neurology in the office in 3-4 weeks.
Referrals:
Anna Kinney CRNP [Specified Professional Personl] - in three to four weeks
UNKNOWN,NO INTERVIEW [Family Provider] -
Prescriptions:
New
atorvastatin 80 mg Tablet
80 mg PO QPM Qty: 30 0RF
lidocaine 4 % Adhesive Patch,Medicated
1 patch topical DAILY Qty: 30 0RF
sennosides-docusate sodium 8.6-50 mg Tablet
2 tab PO BID 30 Days Qty: 120 0RF
clopidogrel 75 mg Tablet
75 mg PO DAILY 18 Days Qty: 18 0RF
polyethylene glycol 3350 17 gram/dose powder
17 g PO DAILY Qty: 510 0RF
Continued
trazodone 50 mg Tablet
50 mg PO HSPRN PRN (Reason: sleep)
hydrocodone-acetaminophen 10-325 mg Tablet
1 tab PO TIDPRN PRN (Reason: severe pain)
aspirin 81 mg Tablet,Delayed Release (Dr/Ec)
81 mg PO DAILY
ergocalciferol (vitamin D2) 1,250 mcg (50,000 unit) Capsule
1,250 mcg PO QWEEK
cyanocobalamin (vitamin B-12) [Vitamin B-12] 100 mcg Tablet
100 mcg PO DAILY
calcium carbonate-vitamin D3 600 mg-5 mcg (200 unit) Tablet
1 tab PO DAILY
pantoprazole [Protonix] 40 mg Tablet,Delayed Release (Dr/Ec)
40 mg PO DAILY Qty: 90 0RF
escitalopram oxalate 20 mg tablet
20 mg PO DAILY Qty: 30 0RF
Discontinued
atorvastatin 40 mg tablet
40 mg PO QPM
Senna Plus 8.6-50 mg Capsule
1 cap PO BID PRN (Reason: CONSTIPATION)
Discharge Orders:
Discharge Patient (As Directed); Ordered 10/08/23
Ordered By: Ochoa Francisco
Discharge Date and Time
Discharge Date/Time: 10/08/23 13:22
Print Language: PANAMANIAN
--- NOTE | 2023-10-08 10:09 | CM ---
Patient for d/c home today.
IMM completed yesterday.
Plan home with [facility]
Private caregiver notified and will transport patient at 12:30 PM.
D
[2023-10-08 11:17] VITALS: BP 101/59
== END 2023-10-08 13:22 | disposition home health service (06) | DRG 62 ==
LOC: 4 WEST ACU 10:26
PROVIDERS: ADMITTING PHYSICIAN Hospitalist; ATTENDING PHYSICIAN Family Medicine; CONSULT PHYSICIAN Physical Medicine & Rehabilitation; CONSULT PHYSICIAN Psychiatry & Neurology Neurology; EMERGENCY PHYSICIAN Emergency Medicine; OTHER PHYSICIAN Internal Medicine
PROC: 3E03317 Introduction of Other Thrombolytic into Peripheral Vein, Percutaneous Approach (ICD-10-PCS; 2023-10-05)
DX: I63.40 Cerebral infarction due to embolism of unspecified cerebral artery (principal); F11.20 Opioid dependence, uncomplicated; R47.01 Aphasia; M81.0 Age-related osteoporosis without current pathological fracture; K21.9 Gastro-esophageal reflux disease without esophagitis; G89.4 Chronic pain syndrome; K59.00 Constipation, unspecified; Z87.81 Personal history of (healed) traumatic fracture
CPT/HCPCS: 70450; 70544; 70547; 70551; 71045; 80048; 80053; 80061; 82962; 83036; 83735; 85025; 85027; 85610; 85730; 92523; 92610; 93306; 96374; 97116; 97163; 97167; 97530; 97535; 99291; J3101

== ENCOUNTER 2023-11-21 14:56 | Outpatient (RCR) | payer MEDICARE, OTHER, SELFPAY | END 2023-11-21 23:59 | disposition home or self-care (01) | LOC: RPT 14:56 | PROVIDERS: ATTENDING PHYSICIAN Family Medicine | DX: M54.9 Dorsalgia, unspecified (principal); Z73.6 Limitation of activities due to disability | CPT/HCPCS: 97010; 97110; 97162 ==

== ENCOUNTER 2023-12-20 13:15 | Outpatient (RCR) | payer MEDICARE, OTHER, SELFPAY | END 2023-12-20 23:59 | disposition home or self-care (01) | LOC: RPT 13:15 | PROVIDERS: ATTENDING PHYSICIAN Family Medicine | DX: M54.9 Dorsalgia, unspecified (principal); Z73.6 Limitation of activities due to disability | CPT/HCPCS: 97010; 97110; 97112; 97530 ==

== ENCOUNTER 2024-01-03 16:55 | Outpatient (RCR) | payer MEDICARE, OTHER, SELFPAY | END 2024-01-03 23:59 | disposition home or self-care (01) | LOC: RPT 16:55 | PROVIDERS: ATTENDING PHYSICIAN Family Medicine | DX: M54.50 Low back pain, unspecified (principal); Z73.6 Limitation of activities due to disability; M62.81 Muscle weakness (generalized); M48.55XD Collapsed vertebra, not elsewhere classified, thoracolumbar region, subsequent encounter for fracture with routine healing | CPT/HCPCS: 97010; 97530 ==

== ENCOUNTER → 2024-01-09 10:43 | Outpatient (REF) | payer MEDICARE, OTHER, SELFPAY | LOC: RAD 10:43 | PROVIDERS: ATTENDING PHYSICIAN Internal Medicine Gastroenterology; FAMILY PHYSICIAN Family Medicine | DX: K21.9 Gastro-esophageal reflux disease without esophagitis (principal) | CPT/HCPCS: 74246 ==

== ENCOUNTER → 2024-03-05 07:28 | Outpatient (REF) | payer MEDICARE, OTHER, SELFPAY | LOC: RAD 07:28 | PROVIDERS: ATTENDING PHYSICIAN Internal Medicine Rheumatology; FAMILY PHYSICIAN Family Medicine | DX: M19.012 Primary osteoarthritis, left shoulder (principal); M81.0 Age-related osteoporosis without current pathological fracture | CPT/HCPCS: 73030 ==

== ENCOUNTER → 2024-03-08 12:52 | Outpatient (RCR) | payer MEDICARE, OTHER, SELFPAY | LOC: RPT 12:52 | PROVIDERS: ATTENDING PHYSICIAN Family Medicine | DX: M19.012 Primary osteoarthritis, left shoulder (principal); Z73.6 Limitation of activities due to disability | CPT/HCPCS: 97010; 97110; 97140; 97162 ==

== ENCOUNTER 2024-03-16 14:14 | Inpatient (IN) | payer MEDICARE, OTHER, SELFPAY ==
[2024-03-15 20:15] VITALS: BP 103/90
[2024-03-15 20:16] VITALS: BP 103/90
[2024-03-15 20:18] LABS: Glucose - Point of Care 96 mg/dl (70-99)
--- NOTE | 2024-03-15 20:19 | ED.CVA ---
History of Present Illness
General
Chief Complaint: CVA/TIA Symptoms
Source: patient, records, family and ambulance crew
Exam Limitations: clinical condition
Time Seen by Provider: 03/15/24 20:16
Nursing documentation reviewed up to this point in time: agreed with
Onset of Stroke Symptoms
Onset of symptoms known: No
Time pt last seen normal is known: No
History of Present Illness
History of Present Illness:
83-year-old female with past medical history of CVA, hypertension, hyperlipidemia, anxiety who presents to the emergency department via EMS from home for evaluation of aphasia. Patient is a limited historian due to expressive aphasia. According to
patient's daughter who I spoke with directly on the phone she received her regular morning email from her mother this morning at around 8 AM and everything seemed normal. Tonight at 7:31 PM she received a call from her mother and says that mother
seem to have trouble speaking�daughter says that she seems to be 'about 60% of normal' as far as her speech. She seemed to try to express that she needed help. Daughter hung up and called 911. She received a call from her mother a few minutes
later and says that her mother was having significant trouble speaking. Per EMS on their arrival they noted the patient was awake and alert with no observable neurodeficits to the eye but when patient tried to speak she was notably aphasic. She
was brought to the emergency room for assessment, prehospital stroke alert called. On arrival here patient is awake and alert. When I asked her her name she says 'yes.' When I ask her essentially any question she says 'yes.' She does however
occasionally have normal sounding speech�for example when we try to take off her shirt she says 'no no stop, that is too much, do one thing at a time.' When I ask her to speak immediately after this she again reverts to single word answers. She
does try to follow commands and seems to understand questions.
Of note�chart review shows the patient was here in September with stroke symptoms�presented very similarly with expressive aphasia and received tenecteplase. Symptoms resolved after tenecteplase, follow-up MRI showed no acute stroke.
Past History
Past History
ED Past Medical History: CVA, Hypercholesterolemia and Other (ocular rosacea, anxiety, chronic back pain, Raynaud's, diverticulosis, GI bleed )
ED Past Surgical History: Tonsilectomy and Other (Basal cell carcinoma resection)
Social History
Tobacco: Former smoker
Alcohol: None
Drug: None
Personal: Single
Living: alone
Employment: Retired
Family History
Family History: Other (Mother with dementia, father with T-cell lymphoma, Parkinson's and prostate cancer)
Review of Systems
Review of Systems
Unable to obtain full review of systems at this time due to: non-verbal (Expressive aphasia)
All Other Systems: Not applicable
Phy Exam
Physical Exam
Physical Exam:
General: Awake, alert, smiling and does not appear in distress
Head: Normocephalic, atraumatic
Eyes: Conjunctiva normal, EOMI, pupils are equal round and reactive to light bilaterally
Throat: Airway intact, handling secretions intact,
Neck: Trachea midline, supple without meningismus
Lungs: Clear to auscultation bilaterally, no wheezing, rales, rhonchi
Heart: Regular rate and rhythm, no murmurs, gallops, or rubs
Abd: Soft, non distended, nontender
Neuro: Cranial nerves intact 2 through 12, patient does have expressive aphasia, no dysarthria, no limb ataxia, motor and sensory intact in all extremities
Extremities: Warm and well-perfused
Scores
NIH Stroke Score
Level of Consciousness: 0 - Alert
LOC Questions: 2-Neither correct
LOC Commands: 0-Performs both correctly
Best Horizontal Gaze: 0-Normal
Visual Mohan: 0=Normal, no visual loss
Facial Palsy: 0=Normal, symmetrical
Motor - Right Arm: 0=No drift 10 seconds
Motor - Left Arm: 0=No drift 10 seconds
Motor - Right Le-No drift 5 seconds
Motor - Left Le-No drift 5 seconds
Limb Ataxia: 0-Absent
Sensation: 0-Normal
Best Language: 2-Severe aphasia
Dysarthria: 0-Normal
Extinction and Inattention: 0-No abnormality
Total Score:: 4
Heart Failure Risk
Heart Failure Risk Score: Not Applicable
Heart Score for Chest Pain Patients
STEMI patient?: Not applicable
Withdrawal Assessment of Alcohol
Withdrawal Assessment Completed?: Not applicable
Course
Orders/Labs/Results
Orders:
Orders
03/15/24 20:17
Electrocardiogram (*1) Stat
Reason for Study: Other
Other Reason for Exam: neuro symptoms
CT HEAD STROKE ALERT W/o Cont Urgent
Comment:
Reason For Exam: asphasia
Bedside Glucose- Treatment ONCE
Cardiac Monitoring- Treatment ONCE
EKG- Treatment ONCE
Vital Signs- Treatment ONCE
Frequency: q30m
03/15/24 20:19
Complete Blood Count/With Diff Urgent
Comprehensive Metabolic Panel Urgent
PTT Urgent
Prothrombin Time Urgent
Urinalysis Reflex To Culture Urgent
03/15/24 20:24
Diphenhydramine [Benadryl] 50 mg IV NOW STA
Hydrocortisone Sod Succinate [Solu-Cortef] 200 mg IV NOW STA
03/15/24 20:32
Lorazepam [Ativan] 0.5 mg IV NOW STA
03/15/24 21:09
Aspirin 325 mg PO NOW STA
Clopidogrel Bisulfate [Plavix] 75 mg PO NOW STA
Abnormal Lab Results
03/15/24
20:19
RBC 3.45 L 10^6/uL
(4.20-5.40)
Hgb 11.3 L g/dL
(12.0-16.0)
Hct 33.9 L %
(37.0-47.0)
MCH 32.8 H pg
(27.0-31.0)
RDW 14.7 H %
(11.5-14.5)
Absolute Monos (auto) 1.1 H 10^3/uL
(0.1-0.6)
Monocytes % 11.7 H %
(1.7-9.3)
BUN 19 H mg/dl
(7-17)
Glucose 107 H mg/dl
(70-99)
03/15/24 20:19
03/15/24 20:19
Vital Signs
Initial and Last Documented VS:
Initial Vital Signs
Temp Pulse Resp BP Pulse Ox
36.5 C 84 17 103/90 95
03/15/24 20:15 03/15/24 20:15 03/15/24 20:15 03/15/24 20:15 03/15/24 20:15
Last Documented Vital Signs
Temp Pulse Resp BP Pulse Ox
36.5 C 84 16 103/90 97
03/15/24 20:15 03/15/24 20:45 03/15/24 20:45 03/15/24 20:16 03/15/24 21:00
MDM/Problems Addressed
Differential Diagnosis Includes:
Stroke, brain mass, brain bleed, seizure, anxiety/panic
MDM/Problems Addressed:
83-year-old female presents as a prehospital stroke alert with expressive aphasia. Onset of symptoms is somewhat unclear�last seen normal via email at 8 AM but daughter did not hear from her again until 7:30 PM tonight at which time she was
apparently symptomatic with expressive aphasia. Patient cannot tell me when symptoms started. Vitals and exam as above. She was taken directly for CT head reviewed by me shows no acute bleed. I discussed the case with neurology at length�we
discussed her acute presentation here, known timeline; we also discussed her previous presentation and hospitalization/treatment. At this point neurology feels that risks of TNK likely outweigh benefits and question whether this is truly an acute
stroke given that she had no acute findings on MRI after previous presentation. Recommended trial of low-dose lorazepam, possible this is more of an atypical seizure rather than acute stroke. Recommended no tenecteplase at this point in time.
Will proceed with aspirin and Plavix. Close monitoring of neurologic exam and admission pending initial assessment.
Labs reviewed: CBC and CMP no clinically significant abnormalities. CT head reviewed by radiology no acute disease. EKG shows sinus rhythm (initial showed artifact and computer read as AV block; immediate repeat showed NSR with no AV block).
Patient's symptoms have been improving. Still not back to baseline. A family friend is now at bedside she last saw patient normal yesterday. She raised an additional concern�as patient is on chronic hydrocodone and that they portion her pills out
for the week typically. Apparently tonight there were pills of oxycodone missing and she had replaced them with baby aspirin. Certainly this may contribute to her clinical presentation today. Will admit for continued monitoring. Case discussed
with hospitalist.
Chronic conditions affecting care:
Stroke history, hypertension, hyperlipidemia
*Radiology
Radiology exam reviewed: preliminary read by ED provider and radiology read reviewed
*Pulse Oximetry
Patient hypoxic: no
*Critical Care Note
Total Time (30-74mins, 75-104mins- exclusive of procedures): 30
comment:
Critical care statement: A total of 30 minutes of critical care time was provided for this patient. This includes management of unstable vital signs, evaluation of the patient at bedside, frequent reassessment, discussion with
consultants/hospitalist, and review of pertinent medical records. This time was separate from time utilized to perform any aforementioned documented procedures
Data Reviewed
Review of Other/Old Records Reveals: Labs, Records, Testing and Discharge Summary
Source: patient, records, family and ambulance crew
Prescriptions/Medications Considered But Not Given:
Considered tenecteplase
Patient Management
Discussion with other providers: Hospitalist (Discussed with hospitalist) and Hadoop Analyst (Discussed with neurologist)
Escalation/DeEscalation of care consider admission/obs:
Admission indicated
ED Attending Note
-
Portions of this chart may have been created with voice recognition software.� Occasional wrong word or��sound alike� substitutions may have occurred due to the inherent limitations of voice recognition software.
Discharge Plan
Departure
Patient Disposition: Admit
Date of Disposition: 03/15/24
Time of Disposition: 21:15
Admit to doctor: Oziel
Presentation/result/management discussed w/ accepting MD/DO: Hospitalist
Discharge Problem:
Aphasia, Acute CVA (cerebrovascular accident)
Prescriptions:
No Action
trazodone 50 mg Tablet
50 mg PO HSPRN PRN (Reason: sleep)
hydrocodone-acetaminophen 10-325 mg Tablet
1 tab PO TID
Patient Comments:
03/15/24: Per family friend, patient is taking more than prescribed, but unsure how much
aspirin 81 mg Tablet,Delayed Release (Dr/Ec)
81 mg PO DAILY
ergocalciferol (vitamin D2) 1,250 mcg (50,000 unit) Capsule
1,250 mcg PO QWEEK
Patient Comments:
03/15/24: family friend unsure what day of the week she takes this
cyanocobalamin (vitamin B-12) [Vitamin B-12] 100 mcg Tablet
100 mcg PO DAILY
calcium carbonate-vitamin D3 600 mg-5 mcg (200 unit) Tablet
1 tab PO DAILY
atorvastatin 80 mg Tablet
80 mg PO QPM Qty: 30 0RF
coenzyme Q10 [CoQ-10] 100 mg Capsule
100 mg PO DAILY
bupropion HCl 150 mg Tablet Extended Release 24 Hr
150 mg PO DAILY
folic acid 0.8 mg Capsule
0.8 mg PO DAILY
cholecalciferol (vitamin D3) [Vitamin D3] 25 mcg (1,000 unit) Tablet
25 mcg PO DAILY
diclofenac sodium [Voltaren Arthritis Pain] 1 % Gel
2 g TOPICAL DAILYPRN PRN (Reason: arthritis pain)
sennosides-docusate sodium 8.6-50 mg tablet
2 tab PO BIDPRN PRN (Reason: constipation)
pantoprazole [Protonix] 40 mg tablet,delayed release (DR/EC)
80 mg PO DAILY
polyethylene glycol 3350 17 gram/dose powder
17 g PO DAILYPRN PRN (Reason: constipation)
escitalopram oxalate 20 mg tablet
20 mg PO DAILY Qty: 30 0RF
Referrals:
Neto Zamora DO [Family Provider] -
Interventions
Interventions:
*General Assessment Last Done: 03/15/24 20:59
*ED COVID-19 Vaccine History Last Done: 03/15/24 20:57
ED- Pulmonary Assessment Last Done: 03/15/24 21:00
ED- Neurological Assessment Last Done: 03/15/24 21:00
ED- Cardiac Assessment Last Done: 03/15/24 21:00
ED Swallowing Screen Last Done: 03/15/24 21:08
Discharge Date and Time
Print Language: SPANISH
[2024-03-15 20:26] LABS: % Eosinophils 2.4 % (0-6); % Immature Granulocytes 0.3 % (0-0.5); % Monocytes 11.7 % (1.7-9.3); % Neutrophils 55.6 % (42.2-75.2); Absolute Basophils 0.1 10^3/uL (0-0.2); Absolute Eosinophils 0.2 10^3/uL (0-0.7); Absolute Lymphocytes 2.7 10^3/uL (1.2-3.4); Absolute Monocytes 1.1 10^3/uL (0.1-0.6); Absolute Neutrophils 5.2 10^3/uL (1.4-6.5); Hematocrit 33.9 % (37.0-47.0); Hemoglobin 11.3 g/dL (12.0-16.0); Mean Corp Hgb Conc. 33.3 g/dL (33.0-37.0); Mean Corpuscular Hgb 32.8 pg (27.0-31.0); Mean Corpuscular Volume 98.3 fL (81.0-99.0); Mean Platelet Volume 9.7 fL (7.4-10.4); Nucleated Red Blood Cells % 0 %; Platelet Count 279 10^3/uL (130-400); Red Blood Cell Count 3.45 10^6/uL (4.20-5.40); Red Cell Dist. Width 14.7 % (11.5-14.5); White Blood Cell Count 9.3 10^3/uL (4.8-10.8)
[2024-03-15] MEDS: BENADRYL 50 MG IV (20:32)
[2024-03-15] MEDS: SOLU-CORTEF 200 MG IV (20:33)
[2024-03-15 20:36] LABS: INR 0.94; PT 12.9 Sec (11.4-14.6)
[2024-03-15 20:45] LABS: ALT (SGPT) 13 U/L (0-35); AST (SGOT) 23 U/L (14-36); Albumin 3.9 g/dl (3.5-5.0); Alkaline Phosphatase 63 U/L (38-126); Blood Urea Nitrogen 19 mg/dl (7-17); Calcium 9.6 mg/dl (8.4-10.2); Carbon Dioxide 24 mmol/L (22-30); Chloride 100 mmol/L (98-107); Glucose 107 mg/dl (70-99); Potassium 3.8 mmol/L (3.5-5.1); Sodium 136 mmol/L (135-145); Total Bilirubin 0.2 mg/dl (0.2-1.3); eGFR 56.25
[2024-03-15] MEDS: ATIVAN 0.5 MG IV (20:46)
[2024-03-15 20:53] VITALS: BMI 21.5
[2024-03-15 21:00] VITALS: BP 105/57
[2024-03-15] MEDS: PLAVIX 75 MG PO (21:33)
[2024-03-15] MEDS: ASPIRIN 325 MG PO (21:33)
[2024-03-15 22:00] VITALS: BP 92/39
[2024-03-15 23:10] VITALS: BP 93/53
--- NOTE | 2024-03-15 23:23 | HPS.HSE ---
Family Physician
-
Family Physician: Neto Zamora, DO
Chief Complaint
-
Reported difficulty speaking, repetitive questions, word salad, flight of ideas.
History of Present Illness
83-year-old female who lives alone with aides 3 days a week 9 AM to 12:30 PM. Her old aide Praneeth who runs a home care business that she used to take after the patient states she received a phone call from the patient's daughter that around 8 AM she
sent her an email which seemed normal but tonight at 7:31 PM she received a call from mother stating she was having trouble speaking her daughter states she seemed to be about 60% abnormal as far as her speech. She had some vivid occultly
expressing what she wanted to state. Her daughter hung up and called 911. She received a phone call from her mother a few minutes later saying that her mother was having difficulty speaking per EMS on their arrival they noted the patient was awake
alert oriented with no neurological deficits she was awake alert on arrival . Apparently when asked her name she stated yes. When I asked the patient what year it was she said 2020. When asking who Praneeth was she rambled new meds may be be brief
men. She appeared to have word salad along with flight of ideas yet was able to follow commands. She denied any headache, fever, chills, chest pain, palpitations, shortness breath, cough, abdominal pain, nausea, vomiting, diarrhea, urinary
symptoms. She had no neurological deficits she was able to follow EOMs. The old home performance consultant Praneeth states they placed her medications and blister packs and they leave her hydrocodone before they leave. Patient typically takes hydrocodone at 3
AM, 8 AM and 4 AM. Praneeth states she checked and there were approximately 6 missing. These are typically locked up in a lock box but only a few are left out for the community support specialist and evening times when the aids are not there. The patient is
unaware if she took the extra medications. The aide states that the patient has had memory impairment with episodes of expressive aphasia and flights of ideas. She has had aides now for the past 2 years due to her daughter living in [place].
She has past medical history of CVA x 2, HLD, anxiety, chronic back pain with compression fractures follows with Dr. Espinoza on chronic oral opiates,, osteoporosis, Raynaud's, diverticulosis, GERD, GI bleed due to duodenal ulcer, former smoker
Basal cell carcinoma removal
Medical History
Past Medical History
Past Medical History: Reports Other
Additional Past Medical History:
Concern for cognitive impairment at baseline
ASCVD / CVA
Osteoporosis
Chronic Pain / Multiple Vertebral Compression Fractures on chronic oral opiates
Anxiety / Depression
GERD
GIB/Duodenal Ulcers
Rosacea
Malignant Melanoma
Chronic pain syndrome on chronic opioids
Past Surgical History: Reports Other
Additional Past Surgical History:
T&A
Skin Cancer Excision
Social History
Tobacco: Former Smoker (Quit smoking over 60 years ago.)
Alcohol: None
Drug: None
Personal: Single
Living: Alone
Employment: Retired
Family History
Family History: Not pertinent
Allergies / Home Medications
Allergies reflects when Allergies were last updated in [employer].
Home Medications with original date entered in [employer]
Allergy/Medication List:
Allergies
Allergy/AdvReac Type Severity Reaction Status Date / Time
Iodinated Contrast Media Allergy Anaphylaxis Verified 03/15/24 23:12
[IV Dye, Iodine Containing]
povidone-iodine Allergy Unknown Verified 03/15/24 20:52
[From Betadine]
red dye [Red Dye] Allergy Unknown Verified 03/15/24 20:52
soap [From Betadine] Allergy Unknown Verified 03/15/24 20:52
Home Medications
escitalopram oxalate 20 mg tablet 20 mg PO DAILY Mental Health/Anxiety #30 tabs 04/30/22
aspirin 81 mg tablet,delayed release 81 mg PO DAILY Blood Clot Prevention/Tx 10/05/23
calcium 600 mg (as carbonate)-vitamin D3 5 mcg (200 unit) tablet 1 tab PO DAILY Supplement 10/05/23
cyanocobalamin (vitamin B-12) 100 mcg tablet (Vitamin B-12) 100 mcg PO DAILY Supplement 10/05/23
ergocalciferol (vitamin D2) 1,250 mcg (50,000 unit) capsule 1,250 mcg PO QWEEK Supplement 10/05/23
hydrocodone 10 mg-acetaminophen 325 mg tablet 1 tab PO TID 10/05/23
trazodone 50 mg tablet 50 mg PO HSPRN PRN sleep 10/05/23
atorvastatin 80 mg tablet 80 mg PO QPM #30 tabs 10/08/23
bupropion HCl 150 mg 24 hr tablet, extended release 150 mg PO DAILY 03/15/24
cholecalciferol (vitamin D3) 25 mcg (1,000 unit) tablet (Vitamin D3) 25 mcg PO DAILY 03/15/24
coenzyme Q10 100 mg capsule (CoQ-10) 100 mg PO DAILY 03/15/24
diclofenac sodium 1 % topical gel (Voltaren Arthritis Pain) 2 g topical DAILYPRN PRN arthritis pain 03/15/24
folic acid 0.8 mg capsule 0.8 mg PO DAILY 03/15/24
pantoprazole 40 mg tablet,delayed release (Protonix) 80 mg PO DAILY Reflux 03/15/24
polyethylene glycol 3350 17 gram/dose oral powder 17 g PO DAILYPRN PRN constipation 03/15/24
sennosides 8.6 mg-docusate sodium 50 mg tablet 2 tab PO BIDPRN PRN constipation 03/15/24
Review of Systems
-
History Source: Patient and Other (Prior mona Dacosta who now owns home care business she used to be 8 for the patient)
A 12 point ROS was completed and negative except as noted: Yes
Constitutional: Reports Other (Word jargon, flight of ideas); Denies Fever, Fatigue or Chills
EENT: Denies Sore Throat or Runny Nose
Respiratory: Denies Cough or Trouble Breathing
Cardiac: Denies Chest Pain, Diaphoresis or Palpitations
Abdomen/GI: Denies Abdominal Pain, Nausea, Vomiting, Diarrhea, Constipated, Anorexia or Pain
: Denies Dysuria, Frequency, Flank Pain, Incontinence, Difficulty Voiding, Urgency or Dark Urine
Musculoskeletal: Denies Joint Pain or Edema
Skin: Denies Itching or Rash
Neurological: Denies Dizzy, Headache or Weakness
Endocrine: Reports No Symptoms
Hematologic/Lymphatic: Reports No Symptoms
Psych: Reports Calm
Physical Exam
Vital Signs
Vital Signs
Temp Pulse Resp BP Pulse Ox
97.7 F 76 19 93/53 98
03/15/24 20:15 03/15/24 23:10 03/15/24 23:10 03/15/24 23:10 03/15/24 21:15
Physical Exam
General: Comfortable and Conversant; No Pain, Fever, Chills, Slurred Speech or Obese
HEENT: NormoCephalic, Anicteric, Moist mucous membranes, Atraumatic, PERRLA and [place] Conjunctivae
Respiratory: Clear; No Wheezes or Rales
Cardiac: S1/S2 and Regular Rhythm; No Murmur, Rub or Gallop
Breast: Deferred by me
GI: Soft, Non Tender, Non Distended, Normal Bowel Sounds and No Hepatosplenomegaly
Rectal: Deferred by Provider
Genito-urinary: Deferred by me
Musculoskeletal: No Clubbing, No Cyanosis and No Edema
Skin: Dry; No Rash or Jaundice
Neuro: Awake, Alert, Oriented (To name, daughter Aura in [place], Praneeth old home health rn at bedside otherwise does have word jargon states new meds may be be), No Motor Deficits, Cranial Nerves Intact, No Sensory Deficits and Other (No appreciated
weakness upper or lower legs both 5 out of 5 strength face symmetric tongue midline no slurring of speech able to follow all commands); No Slurred Speech, Facial Droop, Tremors or Sedated
Psych: Calm
Laboratory Results
-
03/15/24 20:19
03/15/24 20:19
Laboratory Results
PT 12.9 Sec (11.4-14.6) 03/15/24 20:
INR 0.94 03/15/24 20:19
APTT 27.0 Sec (23.4-35.0) 03/15/24 20:19
Total Bilirubin 0.2 mg/dl (0.2-1.3) 03/15/24 20:
AST 23 U/L (14-36) 03/15/24 20:
ALT 13 U/L (0-35) 03/15/24 20:
Alkaline Phosphatase 63 U/L (38-126) 03/15/24 20:
Impression/Plan
-
Impression/plan:
Observation telemetry
#Flight of ideas/words jargon some confusion concern accidental opiate overdose (hydrocodone/acetaminophen) left out by nurses 6 tablets versus CVA/TIA
#Unknown start of symptoms was last known normal at 1230
#History of CVA reported in past
-Consult neurology
-MRI brain (patient had negative MRI September 2023)
-Check lipid profile, HgbA1c(history A1c 5.27 September 2023)
-Continue aspirin 81 mg daily, atorvastatin 80 mg every afternoon
-PT/OT/case management
#-Patient had access to 6 packets of hydrocodone/acetaminophen left out due to aides only come Tuesday 9 AM to 12:30 AM
#History of undiagnosed memory impairment per old aide Praneeth at bedside
-Patient has aides Tuesday 9 AM to 12:30 AM only
-Consult case management as' I feel patient is not safe at home with access to narcotics and aids 3 hours a day'
-Consult OT for BCAT eval(baseline cognitive eval)
CT head: No CT evidence for acute intracranial hemorrhage or transcortical infarct.
2. SEVERE WHITE MATTER LEUKOARAIOSIS in both cerebral hemispheres.
3. Mild to moderate bilateral parietal lobe volume loss.
4. Tiny calcification in the florentin.
EKG: Sinus rhythm 87 bpm, QTc 469 MS poor quality EKG would recommend another
EKG NSR 73 bpm QTc 464 MS otherwise normal
#Chronic pain syndrome with chronic opioid dependency
#Multiple vertebral compression fractures
Hold hydrocodone�acetaminophen 1 tablet 3 times daily as needed due to current confusion
-Patient needs better supervision of her opiate medications they should not be left at patient's discretion
-May resume hydrocodone/acetaminophen if oriented to name, place and awake
#History of duodenal ulcers
#Gastroesophageal reflux disease
-Continue PPI
#Osteoporosis
-Continue calcium with vitamin D
#Anxiety/depression
-Continue SSRI, trazodone as needed
#Constipation hx
Continue home sennosides�docusate
Added MiraLAX, continue upon dc
Resolved, pt had BM
DVT prophylaxis�
SCDs
Full code
--- NOTE | 2024-03-15 23:45 | W.PN.UPDATE ---
Update Note
Progress Note Update
This is an addendum to the H&P written by May Nichols on 03/15/2024. Patient seen and examined independently with JAVA ORACLE DEVELOPER.
83-year-old female past medical history of duodenal ulcers, chronic pain syndrome, vertebral compression fractures, osteoporosis, anxiety/depression, presenting for flight of ideas, word salad rather than aphasia.
She was admitted in September with aphasia with negative stroke workup at that time.
There is concern for accidental opiate ingestion by the visiting nurses.
No focal neurological deficits. Seems to be metabolic encephalopathy secondary to opiate ingestion superimposed on chronic dementia versus less likely CVA.
CT head shows no acute intracranial abnormality.
Patient given aspirin and Plavix.
Hold narcotics for now. Check MRI brain.
[2024-03-16] VITALS (10 sets, daily range): BP systolic 78–114; BP diastolic 45–65; PULSE 78; O2SAT 99; BMI 19.9
[2024-03-16 00:11] LABS: COVID-19 Antigen Negative (Negative)
[2024-03-16 02:57] LABS: Urine Albumin Negative (Neg - Trace); Urine Bilirubin Negative (Negative); Urine Character Clear (Clear); Urine Color Yellow; Urine Glucose Negative (Negative); Urine Ketone Negative (Negative); Urine Leukocyte Negative (Negative); Urine Nitrite Negative (Negative); Urine Occult Blood Negative (Negative); Urine Specific Gravity 1.015 (<1.030); Urine Urobilinogen Negative (Neg - 1+)
--- NOTE | 2024-03-16 03:09 | PTCARENOTE ---
pt admitted to room 339-2 at approx 0215 from ED. Pulled over from stretcher to bed with assist x3, automated process operator placed, NSR.
NIH scale completed, scoring 3 - aphasia and incorrect LOC question. Stroke education provided, SCDs placed.
pt able to make needs known, confused conversation intermittently. bed alarm placed for safety.
[2024-03-16 05:59] LABS: % Basophils 0.5 % (0-2); % Immature Granulocytes 0.2 % (0-0.5); % Lymphocytes 19.2 % (20.5-51.1); % Monocytes 1.7 % (1.7-9.3); % Neutrophils 78.4 % (42.2-75.2); Absolute Lymphocytes 1.1 10^3/uL (1.2-3.4); Absolute Monocytes 0.1 10^3/uL (0.1-0.6); Absolute Neutrophils 4.5 10^3/uL (1.4-6.5); Hematocrit 31.7 % (37.0-47.0); Hemoglobin 10.7 g/dL (12.0-16.0); Mean Corp Hgb Conc. 33.8 g/dL (33.0-37.0); Mean Corpuscular Hgb 32.7 pg (27.0-31.0); Mean Corpuscular Volume 96.9 fL (81.0-99.0); Mean Platelet Volume 10.2 fL (7.4-10.4); Nucleated Red Blood Cells % 0 %; Platelet Count 259 10^3/uL (130-400); Red Blood Cell Count 3.27 10^6/uL (4.20-5.40); Red Cell Dist. Width 14.6 % (11.5-14.5); White Blood Cell Count 5.7 10^3/uL (4.8-10.8)
[2024-03-16 06:32] LABS: ALT (SGPT) 11 U/L (0-35); AST (SGOT) 23 U/L (14-36); Albumin 3.4 g/dl (3.5-5.0); Alkaline Phosphatase 49 U/L (38-126); Blood Urea Nitrogen 18 mg/dl (7-17); Calcium 8.9 mg/dl (8.4-10.2); Carbon Dioxide 26 mmol/L (22-30); Chloride 104 mmol/L (98-107); Estimated Creatinine Clearance 41 ml/min; Glucose 133 mg/dl (70-99); HDL Cholesterol 48 mg/dl; LDL Cholesterol, Calculated 77 mg/dl; Magnesium 1.8 mg/dl (1.6-2.3); Potassium 4.5 mmol/L (3.5-5.1); Sodium 140 mmol/L (135-145); Total Bilirubin 0.2 mg/dl (0.2-1.3); Total Cholesterol 134 mg/dl (50-199); Total Protein 6.2 g/dl (6.3-8.2); Triglyceride 45 mg/dl (10-149); Very Low Density Lipoprotein 9 mg/dl (0-30); eGFR > 60.00
[2024-03-16 07:12] LABS: Vitamin B12 462 pg/ml (239-931)
[2024-03-16] MEDS: WELLBUTRIN XL (24 hour extended release) PO ×2 (09:22→09:29)
[2024-03-16] MEDS: PROTONIX 80 MG PO (09:22)
[2024-03-16] MEDS: ASPIR LOW (ENTERIC COATED) 81 MG PO (09:22)
[2024-03-16] MEDS: LEXAPRO 20 MG PO (09:22)
[2024-03-16] MEDS: OSCAL 500 + D 500 MG PO (09:23)
[2024-03-16] MEDS: VITAMIN B-12 100 MCG PO (09:23)
[2024-03-16] MEDS: VITAMIN D3 (cholecalciferol) 25 MCG PO (09:24)
[2024-03-16] MEDS: FOLVITE 0.8 MG PO (09:37)
--- NOTE | 2024-03-16 10:21 | CON.NEURO ---
Neuro Assessment/Plan
Assessment
Abrupt onset of speech changes, repetitive with the last event in September 2023 at which time the patient was provided with tenecteplase but not found to have an acute ischemic stroke by MRI of the brain
Differential diagnosis for this patient's event includes seizure or cognitive deficiency secondary to degenerative disorder
Plan
Check repeated MRI of brain without contrast
Check EEG
Consider adding clopidogrel to the patient's usual aspirin based on MRI of brain results
Rehabilitation evaluations
Consider outpatient neuropsychological evaluation
Continue vitamin B12 replacement
Will follow pending results and then as outpatient
Consultation
Order
Date of Consultation: 03/16/24
Requesting Provider: Hospitalists
Reason for Consult: Aphasia
Subjective/Objective
Subjective Data
Date of Service: March 16, 2024
Patient with recurrent episode of speech dysfunction, 'like a typewriter that's broken.'
She indicates that speech is not back to normal. No known modifying factors. No known associated symptoms.
Patient was evaluated by this interviewer on October 05, 2023:
'Unknown handed
Adapted from prior consultation and subsequent progress notes:
'DATE/TIME OF CONSULTATION: 04/19/22
Reason for Consultation: Stroke Alert
This is an 81-year-old female who has presented to the hospital after being found unresponsive next to her car in the [facility] parking lot at 1245 today. A [facility] patron reported to EMS that they observed her standing by her car for a few minutes before
she collapsed to the ground, was foaming at the mouth, and shaking. EMS report that she had a pulse on arrival and was hypertensive, nonverbal, and weak on her right side. She lives alone and her family is in [place]. Her daughter in [place]
reports that she received an email from the patient this morning at 0619 EST, otherwise, it is unknown when her last known well time was. At baseline, she ambulates with a rolling walker, still drives, and lives independently. She has a home helper
that comes to check on her a few days per week. She has no known history of TIA, stroke, seizure, dementia, or cancer and does not take any blood-thinning medications per medical records.
Patient initially had CT head noncontrast performed and then after the study required intubation given necessity for iodine dye for stroke and CTA and potential for anaphylaxis. After intubation patient required IV preparation of steroid,
famotidine, Benadryl in preparation for iodine contrast with concern for allergy. She had to have right external jugular IV placed and there was concern by CT technicians that this would not be amenable to a power injection of the CT perfusion or
CT angiogram studies, ended up using 20 gauge IV in the arm for the studies.
CT head noncontrast reviewed no MCA sign is seen no hemorrhage no early ischemia aspect score of 10 no chronic infarct seen.
CT perfusion reviewed which is a uninterpretable study due to technical constraints, on the images of the vessels but the left MCA artery is patent through the course of the M1 segment
CTA of the head and neck images and report reviewed there is severe motion degradation, no carotid occlusion bilaterally, terminal ICA occlusion, M2 segments of the left MCA artery not really interpretable.
Assessment:
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
Differential diagnosis would include seizure.
Recommendations
Combination aspirin and clopidogrel 75 mg daily for 21 days then ASA alone
Provide Atorvastatin 40 mg daily.'
Patient subsequently was evaluated by my former esteemed colleague November 2022 at which time the patient was decided to be maintained on both aspirin 81 mg and atorvastatin 40 mg.
Patient recently presented to this hospital for question of lower GI bleed. There was no evidence however of same during that hospitalization, and the patient was discharged on 09/16/2023.
Today, patient returned to this hospital's emergency department after presenting to the [place] physical therapy outpatient department with acute speech change. Patient was described as having last interactions with friends and family verbally
yesterday evening and subsequently sent an email to her daughter timed as 0655 hrs. this morning. That email was described by the patient's daughter by phone as being unremarkable with regards to grammar and content. However, when the patient
presented to physical therapy, the patient was described as having difficulty with speech output (0850 hrs.) today. Patient was then brought to this hospital's emergency department and a stroke alert was initiated. Due to aphasia, the patient
herself is unable to provide her own medical history. '
During that admission, the patient was not found to have MRI findings suggestive of stroke.
Objective Data
Vital Signs
Temp Pulse Resp BP Pulse Ox
36.4 C 78 18 111/64 98
03/16/24 07:48 03/16/24 07:48 03/16/24 07:48 03/16/24 07:48 03/16/24 07:48
Lab Results
03/16/24 05:20
03/16/24 05:20
PT 12.9 Sec (11.4-14.6) 03/15/24 20:19
INR 0.94 03/15/24 20:19
APTT 27.0 Sec (23.4-35.0) 03/15/24 20:19
Sodium 140 mmol/L (135-145) 03/16/24 05:20
Potassium 4.5 mmol/L (3.5-5.1) 03/16/24 05:20
BUN 18 mg/dl (7-17) H 03/16/24 05:20
Glucose 133 mg/dl (70-99) H 03/16/24 05:20
Calcium 8.9 mg/dl (8.4-10.2) 03/16/24 05:20
LDL Cholesterol, Calc 77 mg/dl 03/16/24 05:20
Vitamin B12 462 pg/ml (239-931) 03/16/24 05:20
Patient Allergies
Iodinated Contrast Media [IV Dye, Iodine Containing] Allergy (Verified 03/15/24 23:12)
Anaphylaxis
povidone-iodine [From Betadine] Allergy (Verified 03/15/24 20:52)
Unknown
red dye [Red Dye] Allergy (Verified 03/15/24 20:52)
Unknown
soap [From Betadine] Allergy (Verified 03/15/24 20:52)
Unknown
Review of Systems
-
History Source: Patient
All other systems: Reviewed and negative
Respiratory: Negative Trouble Breathing
Cardiac: Negative Chest Pain
Abdomen/GI: Negative Incontinence of Stool
Genitourinary: Incontinence
Musculoskeletal: Back Pain; Negative Neck Pain
Neuro: Headache; Negative Dizzy
Physical Exam
-
General: No Apparent Distress and Appears Stated Age
Eyes: Round OU, Winn Conjunctivae and No Ptosis
HEENT: Anicteric and Moist Mucous Membranes
Neck: Full Range of Motion
Respiratory: No Dyspnea
Cardiac: No JVD
Skin: Unremarkable
Extremities: No Clubbing, No Cyanosis and No Edema
Psych: Intact Judgement/Insight
Extended Neurological Exam
Mood & Affect: Affect Unremarkable
Attention Span & Concentration: Awake, Alert, Interactive and No Difficulty with 2 Step Request
Memory: Able to Recall (month, year) and Vague
Tremor: Hand Tremor Absent and Head Tremor Absent
Involuntary Movement: None
Speech: Quality Unremarkable, Quantity Unremarkable and Other (No difficulty with phrase repetition); Negative Dysarthric
Cranial Nerve II: Left Eye: Pupillary Reactivity Unremarkable, Pupillary Size Unremarkable and Visual Mohan Intact
Cranial Nerve II: Right Eye: Pupillary Reactivity Unremarkable, Pupillary Size Unremarkable and Visual Mohan Intact
Cranial Nerves III, IV, : Extraocular Movement: Extraocular Movement Full in all Directions
Cranial Nerve VII: Facial Symmetry: Normal Facial Symmetry
Cranial Nerve VIII: Hearing: Unremarkable Hearing to Normal Conversational Volume
Cranial Nerves IX, X: Palate Movement: Palate Elevation Symmetric
Cranial Nerve XI: Shoulder Shrug: Unremarkable
Muscle Strength, Overall: Full Throughout
Muscle Bulk & Tone: Bulk Unremarkable and Tone Unremarkable
Pronator Drift: No Drift in Upper Extremities
Deep Tendon Reflexes: Unremarkable Throughout
Touch Sensation: Unremarkable and Double Simultaneous Stimulation Unremarkable
Coordination: [id number] Testing Unremarkable
Babinski Sign: Absent Bilaterally
Data Reviewed
-
MRI Head: Pending
EEG: Report Reviewed
Labs: Report Reviewed
Reviewed with: Physician and Patient
Old Records: Summarized
Medications
-
Active Medications
Generic Name Dose Route Start Last Admin
Trade Name Freq PRN Reason Stop Dose Admin
Acetaminophen 650 mg 03/16/24 00:34
Acetaminophen 325 Mg Tablet PO 04/13/24 00:33
Q4HPRN PRN
mild pain/COBIAN/temp> 100.4F
Aspirin 81 mg 03/16/24 08:00 03/16/24 09:22
Aspirin 81 Mg (Enteric Coated) Tablet PO 04/13/24 07:59 81 mg
DAILY SHOLA Administration
Atorvastatin Calcium 80 mg 03/16/24 18:00
Atorvastatin (Lipitor) 80 Mg Tablet PO 04/13/24 17:59
QPM SHOLA
Bupropion HCl 150 mg 03/16/24 08:00 03/16/24 09:29
Bupropion (24hr) Extended Release 150 Mg Tablet PO 04/13/24 07:59 Not Given
DAILY SHOLA
Calcium/Vitamin D 500 mg 03/16/24 08:00 03/16/24 09:23
Calcium Carbonate 500 Mg/Vitamin D 5 Mcg (200 Units) Tablet PO 04/13/24 07:59 500 mg
DAILY SHOLA Administration
Cholecalciferol 25 mcg 03/16/24 08:00 03/16/24 09:24
Cholecalciferol (Vitamin D3) 25 Mcg Tablet (1,000 Units) PO 04/13/24 07:59 25 mcg
DAILY SHOLA Administration
Cyanocobalamin 100 mcg 03/16/24 08:00 03/16/24 09:23
Cyanocobalamin (Vitamin B-12) 100 Mcg Tablet PO 04/13/24 07:59 100 mcg
DAILY SHOLA Administration
Escitalopram Oxalate 20 mg 03/16/24 08:00 03/16/24 09:22
Escitalopram 20 Mg Tablet PO 04/13/24 07:59 20 mg
DAILY SHOLA Administration
Folic Acid 0.8 mg 03/16/24 08:00 03/16/24 09:37
Folic Acid 0.4 Mg Tablet PO 04/13/24 07:59 0.8 mg
DAILY SHOLA Administration
Pantoprazole Sodium 80 mg 03/16/24 08:00 03/16/24 09:22
Pantoprazole 40 Mg Delayed Release Tablet PO 04/13/24 07:59 80 mg
DAILY SHOLA Administration
Polyethylene Glycol 17 gm 03/16/24 00:34
Polyethylene Glycol 238 Gm Powder PO 04/13/24 00:33
DAILYPRN PRN
constipation
Senna/Docusate Sodium 2 tablet 03/16/24 00:34
Docusate W/Senna (Freda-Colace) Tablet PO 04/13/24 00:33
BIDPRN PRN
constipation
Sodium Chloride 0 flush 03/16/24 08:00
Sodium Chloride 0.9% (Flush) Syringe IV 04/13/24 07:59
PER PROTOCOL SHOLA
Trazodone HCl 50 mg 03/16/24 00:34
Trazodone 50 Mg Tablet PO 04/13/24 00:33
HSPRN PRN
sleep
Home Medications
�Medication �Instructions �Recorded
escitalopram oxalate 20 mg tablet 20 mg PO DAILY Mental 04/30/22
Health/Anxiety #30 tabs
aspirin 81 mg tablet,delayed 81 mg PO DAILY Blood Clot 10/05/23
release Prevention/Tx
calcium 600 mg (as 1 tab PO DAILY Supplement 10/05/23
carbonate)-vitamin D3 5 mcg (200
unit) tablet
cyanocobalamin (vitamin B-12) 100 100 mcg PO DAILY Supplement 10/05/23
mcg tablet (Vitamin B-12)
ergocalciferol (vitamin D2) 1,250 1,250 mcg PO QWEEK Supplement 10/05/23
mcg (50,000 unit) capsule
hydrocodone 10 mg-acetaminophen 1 tab PO TID 10/05/23
325 mg tablet
trazodone 50 mg tablet 50 mg PO HSPRN PRN sleep 10/05/23
atorvastatin 80 mg tablet 80 mg PO QPM #30 tabs 10/08/23
bupropion HCl 150 mg 24 hr tablet, 150 mg PO DAILY 03/15/24
extended release
cholecalciferol (vitamin D3) 25 25 mcg PO DAILY 03/15/24
mcg (1,000 unit) tablet (Vitamin
D3)
coenzyme Q10 100 mg capsule 100 mg PO DAILY 03/15/24
(CoQ-10)
diclofenac sodium 1 % topical gel 2 g topical DAILYPRN PRN arthritis 03/15/24
(Voltaren Arthritis Pain) pain
folic acid 0.8 mg capsule 0.8 mg PO DAILY 03/15/24
pantoprazole 40 mg tablet,delayed 80 mg PO DAILY Reflux 03/15/24
release (Protonix)
polyethylene glycol 3350 17 17 g PO DAILYPRN PRN constipation 03/15/24
gram/dose oral powder
sennosides 8.6 mg-docusate sodium 2 tab PO BIDPRN PRN constipation 03/15/24
50 mg tablet
Past History
Past History
ED Past Medical History: Cancer (malignant melanoma), CVA (2023, left centrum semiovale), GERD, Hypercholesterolemia, Psychiatric (anxiety), Other (osteopenia) and Other (ocular rosacea, chronic back pain, Raynaud's, diverticulosis, GI bleed )
ED Past Surgical History: Tonsilectomy and Other (Basal cell carcinoma resection)
Social History
Tobacco: Former smoker
Alcohol: None
Drug: None
Personal: Single
Living: alone
Employment: Retired
Family History
Family History: Other (Mother with dementia, father with T-cell lymphoma, Parkinson's and prostate cancer)
--- NOTE | 2024-03-16 14:09 | W.PN.HOSP.TC ---
Addendum entered and electronically signed by Abdias Stone DO 03/16/24 15:48:
Disregard below addendum
Addendum entered and electronically signed by Abdias Stone DO 03/16/24 15:47:
CDI: Bone demineralization on imaging likely reflective of her known osteoporosis. Would not qualify her hip fracture as an pathognomonic fracture as she fell off of a ladder and this injury may have caused a fractured hip and a percent with normal
bone mineral density, though risk is higher due to her osteoporosis.
Original Note:
Today's Communication/Plan
-
MRI and EEG
NIHSS/neurochecks
Continue aspirin and statin
PT/OT
Assessment / Plan
Assessment / Plan
#Abnormal speech pattern
#Flight of ideas
#Acute metabolic encephalopathy
-Differential diagnosis is include unspecified dementia, accidental opiate OD, CVA, seizure events
-Last known normal near 12:30 PM on 03/15/2024, subsequently found with recent thoughts
-Per visiting nurses there were concerns that she extra doses of her hydrocodone/acetaminophen
-CT here without acute ICH or mass effect, did show severe leukoaraiosis with mild to moderate bilateral volume
-MRI brain without contrast and EEG ordered by neurology
-No obvious FND or cranial nerve deficits on my eval, NIHSS low
Plan
-Follow-up on MRI brain and EEG
-Hold opiates and other sedating agents
-Consider CTA, carotid US, echo if MRI positive
-Monitor on telemetry
-Monitor NIHSS/neurochecks
#Chronic pain syndrome from vertebral compression fractures
#Chronic opiate dependence
-Holding home opioid regimen as may be contributing to her mental status
-Plan to resume opiates slowly as mental status stabilizes
-Continue with home bowel regimen, added MiraLAX
#H/O CVA
-Unclear etiology; no history of cerebrovascular stenosis, AF/AFL, carotid stenosis
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
-CT showing severe leukoaraiosis with bilateral parietal wasting
-Home medications include aspirin and high intensity statin
#H/O PUD
#Chronic GERD
-Home medications include 80 mg Protonix daily
-Will trend CBC here and monitor for signs of bleeding
-Remains on aspirin therapy for history of strokes
#Osteoporosis
-Home medications include vitamin D and calcium
#Anxiety/depression
-Home medications include Lexapro
DVT prophylaxis: SCDs
Diet: Low-cholesterol
CODE STATUS: Full code
Discussed with her daughter via phone while in the room with the patient in order to provide updates. Discussed case with neurologist
Anticipated Discharge: > 48 hours
Subjective/Interval History
-
Date of Service: March 16, 2024
Seen and examined at the bedside. No acute events since admission. AFVSS
This morning she still has scattered thoughts, flight of ideas. When I entered the room she looked at me and went '[place]!'
Denies any new complaints. ROS rather limited with her mental status
Objective Data
-
Labs:
Laboratory Results
03/16/24
05:20
WBC 5.7
Hgb 10.7 L
Hct 31.7 L
Plt Count 259
Sodium 140
Potassium 4.5
Chloride 104
Carbon Dioxide 26
BUN 18 H
Creatinine 0.9
Glucose 133 H
Calcium 8.9
Total Bilirubin 0.2
AST 23
ALT 11
Alkaline Phosphatase 49
Vital Signs:
Vital Signs
Temp Pulse Resp BP Pulse Ox
97.6 F 78 18 111/64 98
03/16/24 07:48 03/16/24 07:48 03/16/24 07:48 03/16/24 07:48 03/16/24 07:48
I&O
03/15/24 03/16/24 03/17/24
06:59 06:59 06:59
Intake Total 0 / 0
Balance 0 / 0
Review of Systems
-
Unable to obtain full review of systems at this time due to: Other (Tangential)
Physical Exam
-
General: Well Developed, No Apparent Distress, Comfortable and Other (Thin and frail)
HEENT: Normocephalic, Atraumatic, Moist Mucous Membranes and Anicteric
Respiratory: Clear to Auscultation and Non Labored Respirations
Cardiac: Regular Rhythm and S1/S2; Negative Murmur, Rub or Gallop
GI: Soft, Nontender, Nondistended and Normal Bowel Sounds
Musculoskeletal: No Clubbing, No Cyanosis and No Edema
Skin: Warm, Dry and Normal Turgor; Negative Rash
Neuro: AO x 3 and Nonfocal/Grossly Intact
Psych: Calm
Data Reviewed
-
Labs: Labs Reviewed by me and Discussed with Patient
[2024-03-16] MEDS: NSS (PRESERVATIVE FREE) 0.5 ML IV (14:13)
[2024-03-16] MEDS: ATIVAN 1 MG IV (14:14)
--- NOTE | 2024-03-16 14:18 | PTCARENOTE ---
Pt requested medication for MRI, made aware, new order provided, see MAR.
--- NOTE | 2024-03-16 15:19 | EEG.RPT ---
Electroencephalogram Report
Recording
Date of EE03/16/24
Type of EEG: Routine
Length of EEG recordin minutes
Done with Video Recording: Yes
Patient Status: Inpatient
Recording Conditions: Awake and Drowsy
Hyperventilation Performed: No
Photic Stimulation Performed: Yes
Report
LESS THAN 1 HOUR EEG REPORT
LESS THAN 1 HOUR EEG INTERPRETATION:
Likely unremarkable EEG for age
CLINICAL CORRELATION:
Although normative values not been established for a person of this advanced age, the patient�s symmetry of the background suggests that this study was unremarkable.
A normal EEG does not rule out a diagnosis of epilepsy. If clinical suspicion for seizure persists, a prolonged recording may be warranted.
Clinical correlation is advised.
METHODS:
A 21 channel digitized electroencephalogram (EEG) was performed using the 10/20 international system of electrode placement and one-lead of ECG recorded. The [employer] quantitative review system was utilized.
ELECTROENCEPHALOGRAPHER IMPRESSION(S):
Quality of study
Good
Background
There was an unremarkable anterior-posterior voltage gradient of alpha frequency.
With eye opening the background activity changed to a low voltage mixture of frequencies.
There were no significant asymmetries of background activity noted.
Sleep
Drowsiness present
Photic Stimulation
No driving
ECG
Normal sinus rhythm
--- NOTE | 2024-03-16 15:23 | CM ---
Alert awake patient who lives alone in a 2 story home with 3 steps to enter and 6 steps to bed/bathroom. She is assisted in activates of daily living by [facility] 3x week for 3 hours.She uses a walker. Pt will need PT OT , MRI, EEG for
discharge planning. Spoke with dgt Jaimie who lives in [place]. She has a friend Praneeth who assists her in home.CRUZ letter given explained copy given . PT did not want to sign Cruz.
Had [facility] in past . [facility] hx
Pharmacy [facility]
PCP Dr Swenson
PLAN Ongoing dc planning
[2024-03-16] MEDS: LIPITOR 80 MG PO (17:16)
--- NOTE | 2024-03-16 17:34 | PTCARENOTE ---
compliance monitor increased, RQ=183. Pt asymptomatic. made aware.
[2024-03-17 03:40] VITALS: BP 112/54
[2024-03-17] MEDS: TYLENOL 650 MG PO (06:13)
[2024-03-17 08:07] VITALS: BP 108/56
[2024-03-17] MEDS: WELLBUTRIN XL (24 hour extended release) 150 MG PO (09:38)
[2024-03-17] MEDS: VITAMIN D3 (cholecalciferol) 25 MCG PO (09:38)
[2024-03-17] MEDS: OSCAL 500 + D 500 MG PO (09:39)
[2024-03-17] MEDS: LEXAPRO 20 MG PO (09:39)
[2024-03-17] MEDS: VITAMIN B-12 100 MCG PO (09:39)
[2024-03-17] MEDS: PROTONIX 80 MG PO (09:39)
[2024-03-17] MEDS: ASPIR LOW (ENTERIC COATED) 81 MG PO (09:39)
[2024-03-17] MEDS: FOLVITE 0.8 MG PO (09:41)
--- NOTE | 2024-03-17 09:44 | W.PN.NEURO.1 ---
Today's Communication / Plan
-
Rehabilitation evaluations
Outpatient neuropsychological evaluation
Consider outpatient TERESA scan for possible dementia with Lewy bodies
Continue vitamin B12 replacement
Neuro Assessment/Plan
Assessment
Abrupt onset of speech changes, repetitive with the last event in September 2023 at which time the patient was provided with tenecteplase but not found to have an acute ischemic stroke by MRI of the brain
Differential diagnosis for this patient's event includes cognitive deficiency secondary to degenerative disorder, possibly dementia with Lewy bodies based on intermittent episodes
EEG failed to demonstrate epileptiform activity
Plan
Rehabilitation evaluations
Outpatient neuropsychological evaluation
Consider outpatient TERESA scan for possible dementia with Lewy bodies
Continue vitamin B12 replacement
Will follow as outpatient
Subjective/Objective
Subjective Data
Date of Service: March 17, 2024
Objective Data
Vital Signs
Temp Pulse Resp BP Pulse Ox
37.1 C 68 16 108/56 99
03/17/24 08:07 03/17/24 08:07 03/17/24 08:07 03/17/24 08:07 03/17/24 08:07
Lab Results
03/16/24 05:20
03/16/24 05:20
PT 12.9 Sec (11.4-14.6) 03/15/24 20:19
INR 0.94 03/15/24 20:19
APTT 27.0 Sec (23.4-35.0) 03/15/24 20:19
Sodium 140 mmol/L (135-145) 03/16/24 05:20
Potassium 4.5 mmol/L (3.5-5.1) 03/16/24 05:20
BUN 18 mg/dl (7-17) H 03/16/24 05:20
Glucose 133 mg/dl (70-99) H 03/16/24 05:20
Calcium 8.9 mg/dl (8.4-10.2) 03/16/24 05:20
LDL Cholesterol, Calc 77 mg/dl 03/16/24 05:20
Vitamin B12 462 pg/ml (167-595) 03/16/24 05:20
Patient Allergies
Iodinated Contrast Media [IV Dye, Iodine Containing] Allergy (Verified 03/15/24 23:12)
Anaphylaxis
povidone-iodine [From Betadine] Allergy (Verified 03/15/24 20:52)
Unknown
red dye [Red Dye] Allergy (Verified 03/15/24 20:52)
Unknown
soap [From Betadine] Allergy (Verified 03/15/24 20:52)
Unknown
Past History
Past History
ED Past Medical History: Cancer (malignant melanoma), CVA (2023, left centrum semiovale), GERD, Hypercholesterolemia, Psychiatric (anxiety), Other (osteopenia) and Other (ocular rosacea, chronic back pain, Raynaud's, diverticulosis, GI bleed )
ED Past Surgical History: Tonsilectomy and Other (Basal cell carcinoma resection)
Social History
Tobacco: Former smoker
Alcohol: None
Drug: None
Personal: Single
Living: alone
Employment: Retired
Family History
Family History: Other (Mother with dementia, father with T-cell lymphoma, Parkinson's and prostate cancer)
Medications
-
Medications:
Generic Name Dose Route Start Last Admin
Trade Name Freq PRN Reason Stop Dose Admin
Acetaminophen 650 mg 03/16/24 00:34 03/17/24 06:13
Acetaminophen 325 Mg Tablet PO 04/13/24 00:33 650 mg
Q4HPRN PRN Administration
mild pain/COBIAN/temp> 100.4F
Aspirin 81 mg 03/16/24 08:00 03/17/24 09:39
Aspirin 81 Mg (Enteric Coated) Tablet PO 04/13/24 07:59 81 mg
DAILY SHOLA Administration
Atorvastatin Calcium 80 mg 03/16/24 18:00 03/16/24 17:16
Atorvastatin (Lipitor) 80 Mg Tablet PO 04/13/24 17:59 80 mg
QPM SHOLA Administration
Bupropion HCl 150 mg 03/16/24 08:00 03/17/24 09:38
Bupropion (24hr) Extended Release 150 Mg Tablet PO 04/13/24 07:59 150 mg
DAILY SHOLA Administration
Calcium/Vitamin D 500 mg 03/16/24 08:00 03/17/24 09:39
Calcium Carbonate 500 Mg/Vitamin D 5 Mcg (200 Units) Tablet PO 04/13/24 07:59 500 mg
DAILY SHOLA Administration
Cholecalciferol 25 mcg 03/16/24 08:00 03/17/24 09:38
Cholecalciferol (Vitamin D3) 25 Mcg Tablet (1,000 Units) PO 04/13/24 07:59 25 mcg
DAILY SHOLA Administration
Cyanocobalamin 100 mcg 03/16/24 08:00 03/17/24 09:39
Cyanocobalamin (Vitamin B-12) 100 Mcg Tablet PO 04/13/24 07:59 100 mcg
DAILY SHOLA Administration
Escitalopram Oxalate 20 mg 03/16/24 08:00 03/17/24 09:39
Escitalopram 20 Mg Tablet PO 04/13/24 07:59 20 mg
DAILY SHOLA Administration
Folic Acid 0.8 mg 03/16/24 08:00 03/17/24 09:41
Folic Acid 0.4 Mg Tablet PO 04/13/24 07:59 0.8 mg
DAILY SHOLA Administration
Pantoprazole Sodium 80 mg 03/16/24 08:00 03/17/24 09:39
Pantoprazole 40 Mg Delayed Release Tablet PO 04/13/24 07:59 80 mg
DAILY SHOLA Administration
Polyethylene Glycol 17 grams 03/16/24 11:45
Polyethylene Glycol Powder 17 Grams Packet PO 04/13/24 11:44
DAILYPRN PRN
constipation
Senna/Docusate Sodium 2 tablet 03/16/24 00:34
Docusate W/Senna (Freda-Colace) Tablet PO 04/13/24 00:33
BIDPRN PRN
constipation
Sodium Chloride 0 flush 03/16/24 08:00
Sodium Chloride 0.9% (Flush) Syringe IV 04/13/24 07:59
PER PROTOCOL SHOLA
Trazodone HCl 50 mg 03/16/24 00:34
Trazodone 50 Mg Tablet PO 04/13/24 00:33
HSPRN PRN
sleep
[2024-03-17 10:40] VITALS: BP 111/64; PULSE 69
--- NOTE | 2024-03-17 11:09 | W.PN.HOSP.TC ---
Addendum entered and electronically signed by Abdias Stone DO 03/17/24 13:55:
Stable for discharge. >30 minutes spent on discharge prep work
Original Note:
Today's Communication/Plan
-
Resume pain medication, on as-needed basis
Outpatient neuropsychiatric eval
Discharge plan
Assessment / Plan
Assessment / Plan
#Abnormal speech pattern
#Flight of ideas
#Likely dementia
-Differential diagnosis is include unspecified dementia, accidental opiate OD, CVA, seizure events
-Last known normal near 12:30 PM on 03/15/2024, subsequently found with recent thoughts
-Per visiting nurses there were concerns that she extra doses of her hydrocodone/acetaminophen
-CT here without acute ICH or mass effect, did show severe leukoaraiosis with mild to moderate bilateral volume
-MRI brain and EEG here were without signs of stroke or seizure activity
-Resume pain medications though as needed instead of standing
-Will need OP neuropsychiatric evaluation
#Chronic pain syndrome from vertebral compression fractures
#Chronic opiate dependence
-Holding home opioid regimen as may be contributing to her mental status
-Plan to resume opiates slowly as mental status stabilizes
-Continue with home bowel regimen, added MiraLAX
#H/O CVA
-Unclear etiology; no history of cerebrovascular stenosis, AF/AFL, carotid stenosis
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
-CT showing severe leukoaraiosis with bilateral parietal wasting
-Home medications include aspirin and high intensity statin
#H/O PUD
#Chronic GERD
-Home medications include 80 mg Protonix daily
-Will trend CBC here and monitor for signs of bleeding
-Remains on aspirin therapy for history of strokes
#Osteoporosis
-Home medications include vitamin D and calcium
#Anxiety/depression
-Home medications include Lexapro
DVT prophylaxis: SCDs
Diet: Low-cholesterol
CODE STATUS: Full code
Anticipated Discharge: Within 24 hours
Subjective/Interval History
-
Date of Service: March 17, 2024
Seen and examined at the bedside. No acute events reported overnight. AFVSS this morning
Asked her about her back pain, states it is present and fairly bothersome. States she has not asked for any medications as she 'did not want to be a bother'. Started oxycodone 5 mg as needed
Denies any new complaints today. Asks why she is in the hospital. ROS limited by likely dementia
Objective Data
-
Vital Signs:
Vital Signs
Temp Pulse Resp BP Pulse Ox
98.7 F 68 16 108/56 99
03/17/24 08:07 03/17/24 08:07 03/17/24 08:07 03/17/24 08:07 03/17/24 08:07
I&O
03/16/24 03/17/24 03/18/24
06:59 06:59 06:59
Intake Total 480 / 480
Balance 480 / 480
Review of Systems
-
History Source: Patient
All other systems: Reviewed and negative
Physical Exam
-
General: Well Developed, No Apparent Distress, Comfortable and Other (Thin and frail)
HEENT: Normocephalic, Atraumatic, Moist Mucous Membranes and Anicteric
Respiratory: Clear to Auscultation and Non Labored Respirations
Cardiac: Regular Rhythm and S1/S2; Negative Murmur, Rub or Gallop
GI: Soft, Nontender, Nondistended and Normal Bowel Sounds
Musculoskeletal: No Clubbing, No Cyanosis and No Edema
Skin: Warm and Dry; Negative Rash
Neuro: Other (AAO x 2 to 3, no FND, cranial nerves intact)
Psych: Calm
[2024-03-17 12:02] VITALS: BP 113/60
--- NOTE | 2024-03-17 12:39 | CM ---
Addendum entered by JORGE Watt 03/17/24 14:06:
Met with patient to do IMM. Signed on chart. She wants to go back to outpatient PT at . CM [facility] home care with [facility]. Attending put script on chart for out patient PT OT.
Original Note:
Plan discharge today. Needs home PT and OT per therapy at . Patient had [facility] in past. Spoke to D[facility] who agreed to use [facility] again. Dgtr updated on need for follow up withe PCP, neuro and recommendations for Neuropsy testing.
Referral made in [facility]scripts to [facility].
--- NOTE | 2024-03-17 13:52 | W.DCSUMMARY ---
Discharge Summary
Discharge Data
Date of Admission: 03/16/24
Date of Discharge: 03/17/24
-
Pending Results: No
Hospital Course
83-year-old female with chronic back pain from compression fractures on chronic opioid regimen, hyperlipidemia, history of CVA x 2, history of peptic ulcer disease at present to the hospital with encephalopathy and 'flight of ideas'. Patient with
abnormal speech pattern and was difficult to redirect, tangential with conversation. Received CT head without contrast that showed severe leukoaraiosis and bilateral parietal wasting. Subsequent MRI brain without contrast negative for signs of
acute infarct. EEG was also unremarkable for signs of seizure activity. Was evaluated by neurology who recommended outpatient neuropsychiatric testing for diagnosis of neurocognitive process such as dementia. Due to concern of taking excess
opiates by mistake, her regimen was transitioned from hydrocodone�acetaminophen 10�325 3 times daily standing to 3 times daily as needed.
Patient should have follow-up with family doctor, and neurologist for neuropsychiatric evaluation. Case management to arrange for visiting nurse prior to discharge
Discharge Plan
-
Patient Disposition: Assisted Living
Discharge Diagnosis/Procedures: Likely dementia
Abnormal speech/flight of ideas
Condition: Fair
Diet: No restrictions
Activity: As tolerated
Driving Restrictions: No driving
Bathing Restrictions: None
Blood Work: None
Others Tests: Neuropsychiatric testing with outpatient neurologist for diagnosis of dementia
Other Services: PT and OT
Activity Restrictions/Additional Instructions:
Patient should have follow-up with family physician after discharge, should be seen in office within 1 to 2 weeks
She will follow-up with neurology as an OP, referral provided if needed
Referrals:
[facility] [Outside]
Neto Zamora DO [Family Provider] -
Jaziel Redd MD [Non-Admitting Privileges] - in two weeks
Additional Discharge Medication Instructions: Hydrocodone�acetaminophen 10-325 mg should now be taken up to 3 times daily but ONLY NEEDED if the patient is in pain and request a tablet.
If you need a refill on hydrocodone�acetaminophen, you will need to contact your physician that prescribes it outpatient. Let them know that it is now changed to PRN after this hospitalization.
Prescriptions:
New
hydrocodone-acetaminophen 10-325 mg tablet
1 tab PO TID PRN (Reason: Pain) 5 Days Qty: 15 0RF
Continued
trazodone 50 mg Tablet
50 mg PO HSPRN PRN (Reason: sleep)
aspirin 81 mg Tablet,Delayed Release (Dr/Ec)
81 mg PO DAILY
ergocalciferol (vitamin D2) 1,250 mcg (50,000 unit) Capsule
1,250 mcg PO QWEEK
Patient Comments:
03/15/24: family friend unsure what day of the week she takes this
cyanocobalamin (vitamin B-12) [Vitamin B-12] 100 mcg Tablet
100 mcg PO DAILY
calcium carbonate-vitamin D3 600 mg-5 mcg (200 unit) Tablet
1 tab PO DAILY
atorvastatin 80 mg Tablet
80 mg PO QPM Qty: 30 0RF
coenzyme Q10 [CoQ-10] 100 mg Capsule
100 mg PO DAILY
bupropion HCl 150 mg Tablet Extended Release 24 Hr
150 mg PO DAILY
folic acid 0.8 mg Capsule
0.8 mg PO DAILY
cholecalciferol (vitamin D3) [Vitamin D3] 25 mcg (1,000 unit) Tablet
25 mcg PO DAILY
diclofenac sodium [Voltaren Arthritis Pain] 1 % Gel
2 g TOPICAL DAILYPRN PRN (Reason: arthritis pain)
sennosides-docusate sodium 8.6-50 mg tablet
2 tab PO BIDPRN PRN (Reason: constipation)
pantoprazole [Protonix] 40 mg tablet,delayed release (DR/EC)
80 mg PO DAILY
polyethylene glycol 3350 17 gram/dose powder
17 g PO DAILYPRN PRN (Reason: constipation)
escitalopram oxalate 20 mg tablet
20 mg PO DAILY Qty: 30 0RF
Discontinued
hydrocodone-acetaminophen 10-325 mg Tablet
1 tab PO TID
Patient Comments:
03/15/24: Per family friend, patient is taking more than prescribed, but unsure how much
Discharge Orders:
Discharge Patient (As Directed); Ordered 03/17/24
Ordered By: Abdias Stone
Discharge Date and Time
Print Language: GREEK
[2024-03-17 15:42] VITALS: BP 116/60
== END 2024-03-17 15:32 | disposition home or self-care (01) | DRG 884 ==
LOC: 3 WEST ACU 14:14
PROVIDERS: Clinical Nurse Specialist Family Health; ADMITTING PHYSICIAN Hospitalist; ATTENDING PHYSICIAN Internal Medicine; CONSULT PHYSICIAN Psychiatry & Neurology Neurology; EMERGENCY PHYSICIAN Emergency Medicine; FAMILY PHYSICIAN Family Medicine
DX: F03.94 Unspecified dementia, unspecified severity, with anxiety (principal); F11.20 Opioid dependence, uncomplicated; F03.93 Unspecified dementia, unspecified severity, with mood disturbance; I73.00 Raynaud's syndrome without gangrene; E78.00 Pure hypercholesterolemia, unspecified; K57.30 Diverticulosis of large intestine without perforation or abscess without bleeding; K21.9 Gastro-esophageal reflux disease without esophagitis; M81.0 Age-related osteoporosis without current pathological fracture; Z11.52 Encounter for screening for COVID-19; I25.10 Atherosclerotic heart disease of native coronary artery without angina pectoris; G89.4 Chronic pain syndrome; L71.9 Rosacea, unspecified; Z85.820 Personal history of malignant melanoma of skin; Z87.891 Personal history of nicotine dependence; Z79.82 Long term (current) use of aspirin; Z86.73 Personal history of transient ischemic attack (TIA), and cerebral infarction without residual deficits; K59.00 Constipation, unspecified; I10 Essential (primary) hypertension; Z82.0 Family history of epilepsy and other diseases of the nervous system; Z80.7 Family history of other malignant neoplasms of lymphoid, hematopoietic and related tissues; F32.A Depression, unspecified; M19.90 Unspecified osteoarthritis, unspecified site; M48.50XG Collapsed vertebra, not elsewhere classified, site unspecified, subsequent encounter for fracture with delayed healing; Z87.11 Personal history of peptic ulcer disease
CPT/HCPCS: 70450; 70551; 80053; 80061; 81003; 82607; 82962; 83735; 85025; 85610; 85730; 87502; 87811; 93005; 95816; 96374; 96375; 97116; 97166; 97530; 99291

== ENCOUNTER 2024-06-19 16:46 | Outpatient (RCR) | payer MEDICARE, OTHER, SELFPAY | END 2024-06-19 23:59 | disposition home or self-care (01) | LOC: RPT 16:46 | PROVIDERS: ATTENDING PHYSICIAN Family Medicine | DX: S22.000D Wedge compression fracture of unspecified thoracic vertebra, subsequent encounter for fracture with routine healing (principal); Z73.6 Limitation of activities due to disability; M62.81 Muscle weakness (generalized); M79.602 Pain in left arm; R26.89 Other abnormalities of gait and mobility | CPT/HCPCS: 97010; 97110; 97112; 97140; 97162; 97530 ==

== ENCOUNTER → 2024-08-11 08:53 | Outpatient (REF) | payer MEDICARE, OTHER, SELFPAY | LOC: RAD 08:53 | PROVIDERS: ATTENDING PHYSICIAN Specialist; FAMILY PHYSICIAN Family Medicine | DX: M19.012 Primary osteoarthritis, left shoulder (principal) | CPT/HCPCS: 73200 ==

== ENCOUNTER 2024-09-04 10:11 | Inpatient (IN) | payer MEDICARE, OTHER, SELFPAY ==
--- NOTE | 2024-08-13 13:32 | CM ---
Addendum entered by Raquel Aragon RN 08/21/24 12:31:
CM returned patient's daughter's call about post operative care. Daughter was busy and will call this CM back today.
Addendum entered by Raquel Aragon RN 08/14/24 12:32:
CM spoke with patient's daughter Shelby. Shelby plans to fly to [place] to support patient post operatively. Patient is also known to [facility] [phone]. [facility] provides PRODUCT DELIVERY SPECIALIST support to patient 4 days/per week. Shelby stated that
she is able to increase services to 24 hours post operatively if needed. Patient's daughter is unsure who will be driving patient and picking her up. It will either be the patient's daughter or PRODUCT DELIVERY SPECIALIST.
Patient has been seen by [facility] PT/OT and plans to follow up with them when surgically cleared.
CM will remain available as needed.
Original Note:
Cm reviewed medical records. CM spoke with patient via phone. Patient was confused and distractible. Patient stated that her friend Praneeth would be able to assist with questions and discharge planning. Patient did confirm that she has [facility], but she said that they came 3-4 days per week to assist.
Patient does say that she drives and is able to obtain her medications as needed.
CM left message for patient's friend to discuss discharge planning.
[2024-08-14 13:34] VITALS: BMI 20.6
[2024-08-14 13:57] LABS: Hematocrit 34.9 % (37.0-47.0); Hemoglobin 11.7 g/dL (12.0-16.0); Mean Corp Hgb Conc. 33.5 g/dL (33.0-37.0); Mean Corpuscular Volume 97.8 fL (81.0-99.0); Platelet Count 340 10^3/uL (130-400); Red Cell Dist. Width 13.8 % (11.5-14.5)
[2024-08-14 14:22] LABS: ALT (SGPT) 13 U/L (0-35); AST (SGOT) 22 U/L (14-36); Albumin 4.3 g/dl (3.5-5.0); Alkaline Phosphatase 72 U/L (38-126); Blood Urea Nitrogen 17 mg/dl (7-17); Calcium 9.3 mg/dl (8.4-10.2); Carbon Dioxide 24 mmol/L (22-30); Chloride 107 mmol/L (98-107); Estimated Creatinine Clearance 37 ml/min; Glucose 89 mg/dl (70-99); Potassium 4.4 mmol/L (3.5-5.1); Sodium 141 mmol/L (135-145); Total Protein 7.7 g/dl (6.3-8.2); eGFR 56.25
[2024-08-14 15:33] LABS: Iron 72 ug/dl (37-170)
[2024-08-14 15:43] LABS: Total Iron Binding Capacity 367 ug/dl (265-497)
[2024-08-14 16:07] LABS: Ferritin 14.5 ng/ml (11.1-264.0)
[2024-08-14 16:38] LABS: Folate 9.7 ng/ml (2.76-20); Vitamin B12 339 pg/ml (239-931)
[2024-08-15 08:30] LABS: Glycohemoglobin (HgbA1c) 5.7 % (4.0-5.6)
[2024-08-17 10:59] VITALS: BMI 20.6
[2024-09-04] VITALS (11 sets, daily range): BP systolic 95–117; BP diastolic 50–71; BMI 20.6
[2024-09-04] MEDS: TYLENOL 1000 MG PO (11:03)
[2024-09-04] MEDS: MOBIC 15 MG PO (11:03)
[2024-09-04] MEDS: NORMOSOL-R/PLASMALYTE-A 1000 IV ×2 (11:03→17:10)
--- NOTE | 2024-09-04 12:38 | W.PN.ORTHO ---
Today's Communication / Plan
-
d/c when stable
Assessment
.
Dressing:
Clean, dry and intact.
Assessment:
Hx duodenal ulcer/GIB due to NSAIDs-PPI
RA
Chronic pain-opioid depdendent
-steroid w/ pain regimen
Plan
.
Surgery / Date: L Reverse NAIDA Nguyen 09/04/24
Activity:
Out of bed.
PT/OT
Discharge Plan: Home
Vital Signs and Labs
.
Vital Signs and Labs:
Lab Results
08/14/24 12:47
08/14/24 12:47
Temp Pulse Resp BP Pulse Ox
98.6 F 82 16 103/61 98
09/04/24 10:39 09/04/24 10:39 09/04/24 10:39 09/04/24 10:39 09/04/24 10:39
--- NOTE | 2024-09-04 12:51 | W.DS.TRANS ---
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
-
Discharge Instructions:
Sleep Apnea Risk Low
Discharge Diagnosis/Procedures L Reverse NAIDA Nguyen 09/04/24
Diet As tolerated
Activity No strenuous activity
Driving Restrictions No driving
Instructions:
Stand-Alone Forms: Total Shoulder Replacement D/C
Changes to Home Medications: Yes
Discharge Medications:
DC Medications w/original date entered in [facility]
calcium 600 mg (as carbonate)-vitamin D3 5 mcg (200 unit) tablet 1 tab PO DAILY Supplement 10/05/23
cyanocobalamin (vitamin B-12) 100 mcg tablet (Vitamin B-12) 100 mcg PO DAILY Supplement 10/05/23
trazodone 50 mg tablet 50 mg PO HSPRN PRN sleep 10/05/23
atorvastatin 80 mg tablet 80 mg PO QPM #30 tabs 10/08/23
cholecalciferol (vitamin D3) 25 mcg (1,000 unit) tablet (Vitamin D3) 25 mcg PO DAILY Supplement 03/15/24
folic acid 0.8 mg capsule 0.8 mg PO DAILY Supplement 03/15/24
pantoprazole 40 mg tablet,delayed release (Protonix) 40 mg PO BID Reflux 03/15/24
hydrocodone 10 mg-acetaminophen 325 mg tablet 1 tab PO TID PRN Pain 5 days #15 tabs 03/17/24
bupropion HCl 300 mg 24 hr tablet, extended release 300 mg PO DAILY 08/13/24
ezetimibe 10 mg tablet 10 mg PO DAILY 08/13/24
mupirocin 2 % topical ointment 1 applic intranasal BID #1 tube 08/14/24
dexamethasone 4 mg tablet 4 mg PO BID Anti-inflammatory #5 tabs 08/31/24
ondansetron HCl 4 mg tablet 4 mg PO Q6H PRN nausea and vomiting #30 tabs 08/31/24
acetaminophen 500 mg tablet 1,000 mg (2 x 500 mg) PO QID #0 tabs 09/04/24
aspirin 325 mg tablet 325 mg PO DAILY blood clot prevention #1 tab 09/04/24
docusate sodium 100 mg capsule (Colace) 100 mg PO BID stool softner #1 cap 09/04/24
magnesium hydroxide 400 mg/5 mL oral suspension (Milk of Magnesia) 30 ml PO HS PRN constipation #1 mL 09/04/24
sennosides 8.6 mg tablet (Senokot) 17.2 mg (2 x 8.6 mg) PO BID laxative #2 tabs 09/04/24
Home Medication Changes
mupirocin 2 % topical ointment 1 applic intranasal BID #1 tube 08/14/24
dexamethasone 4 mg tablet 4 mg PO BID Anti-inflammatory #5 tabs 08/31/24
ondansetron HCl 4 mg tablet 4 mg PO Q6H PRN nausea and vomiting #30 tabs 08/31/24
acetaminophen 500 mg tablet 1,000 mg (2 x 500 mg) PO QID #0 tabs 09/04/24
aspirin 325 mg tablet 325 mg PO DAILY blood clot prevention #1 tab 09/04/24
docusate sodium 100 mg capsule (Colace) 100 mg PO BID stool softner #1 cap 09/04/24
magnesium hydroxide 400 mg/5 mL oral suspension (Milk of Magnesia) 30 ml PO HS PRN constipation #1 mL 09/04/24
sennosides 8.6 mg tablet (Senokot) 17.2 mg (2 x 8.6 mg) PO BID laxative #2 tabs 09/04/24
Pending Results: No
--- NOTE | 2024-09-04 16:15 | PTCARENOTE ---
Pt arrived to [facility] at 1600 s/p Left reverse TSA. Left shoulder dressing c/d/i with sling. NWB CHIDI. Admission questions answered. Pt oriented to room and call phillips. Bed locked and in lowest position. Care ongoing.
[2024-09-04] MEDS: TYLENOL PO ×2 (16:23→23:22)
[2024-09-04] MEDS: LIPITOR 80 MG PO (17:09)
[2024-09-04] MEDS: PROTONIX PO (17:09)
[2024-09-04] MEDS: ASPIRIN 325 MG PO (17:10)
[2024-09-04] MEDS: WELLBUTRIN XL (24 hour extended release) 300 MG PO (17:23)
[2024-09-04] MEDS: ZETIA 10 MG PO (17:23)
[2024-09-04] MEDS: ROXICODONE 10 MG PO ×2 (18:29→23:23)
--- NOTE | 2024-09-04 20:00 | PTCARENOTE ---
resumed care of pt laying in bed AAOx2, slightly forgetful, [place]. POX 94% on RA, lungs dec @ bases. + bowel, round abd. Pt inc urine, zan care provided. Left shoulder surgical dressing in place with left arm sling in place. Foot pumps and thigh high
teds in place. Right wrist int infusing IVF as ordered. Pt positioned per comfort. Pt reports pain at tolerable level at this time. Call phillips in reach. Bed alarm for pt safety. Will continue to monitor.
[2024-09-04] MEDS: SENOKOT 17.2 MG PO (20:50)
[2024-09-04] MEDS: ANCEF 5 IV (20:50)
[2024-09-04] MEDS: PROTONIX 40 MG PO (20:50)
[2024-09-04] MEDS: TYLENOL 650 MG PO (20:50)
[2024-09-04] MEDS: COLACE 100 MG PO (20:51)
[2024-09-04] MEDS: DECADRON 4 MG IV (20:52)
[2024-09-04] MEDS: BACTROBAN 2% OINTMENT 1 APPLIC NASAL (22:36)
[2024-09-05 03:10] VITALS: BP 94/52
[2024-09-05] MEDS: TYLENOL 650 MG PO ×3 (04:55→12:04)
[2024-09-05] MEDS: ANCEF 5 IV (04:55)
[2024-09-05 07:10] VITALS: BP 94/47
[2024-09-05] MEDS: PROTONIX 40 MG PO (07:58)
[2024-09-05] MEDS: SENOKOT 17.2 MG PO (07:59)
[2024-09-05] MEDS: ZETIA 10 MG PO (07:59)
[2024-09-05] MEDS: COLACE PO ×2 (07:59→08:05)
[2024-09-05] MEDS: ASPIRIN 325 MG PO (07:59)
[2024-09-05] MEDS: WELLBUTRIN XL (24 hour extended release) 300 MG PO (07:59)
[2024-09-05] MEDS: BACTROBAN 2% OINTMENT 1 APPLIC NASAL (08:00)
[2024-09-05] MEDS: DECADRON 4 MG IV (08:00)
--- NOTE | 2024-09-05 08:39 | CM ---
CM met with patient in room. Patient confirmed that daughter is staying with her until Tuesday. She has secured 24hr SENIOR RISK ANALYST assistance for two weeks through [facility].
IMM given and explained.
PLAN: home with family and private pay caregivers, outpatient PT when surgically cleared.
[2024-09-05] MEDS: ROXICODONE 10 MG PO (08:55)
[2024-09-05 11:06] VITALS: BP 103/58; BP 104/63
[2024-09-05 11:15] VITALS: BP 116/92
[2024-09-05 11:30] VITALS: BP 112/56; BP 92/46; PULSE 69
[2024-09-05] MEDS: ZOFRAN 4 MG IV (12:04)
[2024-09-05] MEDS: MAALOX 30 ML PO (12:23)
--- NOTE | 2024-09-05 12:24 | W.PN.ORTHO ---
Today's Communication / Plan
-
D/C-Hemiwalker advised by PT w/ family assist
Assessment
.
Distal Motor Intact: Yes
Dressing:
Clean, dry and intact.
Assessment:
Hx duodenal ulcer/GIB due to NSAIDs-PPI
RA
Chronic pain-opioid depdendent
-steroid w/ pain regimen
Plan
.
Surgery / Date: L Reverse NAIDA Nguyen 09/04/24
DVT Prophylaxis: Aspirin
Activity:
Out of bed.
PT/OT
Discharge Plan: Home
Subjective
.
.:
Patient resting comfortably.
Vital Signs and Labs
.
Vital Signs and Labs:
Lab Results
08/14/24 12:47
08/14/24 12:47
Temp Pulse Resp BP Pulse Ox
98.4 F 77 16 116/92 96
09/05/24 11:15 09/05/24 11:15 09/05/24 11:15 09/05/24 11:15 09/05/24 11:15
Non-invasive Hgb result: 11
Physical Exam
-
HEENT: No pallor, cyanosis, or jaundice. Throat clear.
NECK: Supple. No JVD.
RESPIRATORY: Lungs clear to auscultation.
CVS: S1, S2 normal. RRR.� No murmur, rub or gallop.
ABDOMEN: Soft, non-tender. No distension. BS+/normal.
EXTREMITIES: strength equal, no calf pain with palpation
PROPERTY INSURANCE CLAIMS EXAMINER: AOx3. No focal deficits. matrix plater grossly intact
--- NOTE | 2024-09-05 13:00 | CM ---
CM spoke with patient's daughter who is in agreement with [facility] for PT/OT. ANDRADE updated [facility] Admission RN with new referral.
PLAN: home with [facility].
--- NOTE | 2024-09-05 13:55 | VNURNOTE ---
PM [facility] Liaison attempted to meet patient, her door was closed, pt unavailable. Call placed to contact, daughter Shelby. No answer, left message. PM [facility] referral placed in [facility].
== END 2024-09-05 13:57 | disposition home health service (06) | DRG 483 ==
LOC: 2 SOUTH 10:11
PROVIDERS: ADMITTING PHYSICIAN Specialist; FAMILY PHYSICIAN Family Medicine
PROC: 0RRK00Z Replacement of Left Shoulder Joint with Reverse Ball and Socket Synthetic Substitute, Open Approach (ICD-10-PCS; 2024-09-04)
DX: M19.012 Primary osteoarthritis, left shoulder (principal); F11.20 Opioid dependence, uncomplicated; M25.712 Osteophyte, left shoulder; E78.5 Hyperlipidemia, unspecified; I45.10 Unspecified right bundle-branch block; I87.2 Venous insufficiency (chronic) (peripheral); K21.9 Gastro-esophageal reflux disease without esophagitis; G62.9 Polyneuropathy, unspecified; I73.00 Raynaud's syndrome without gangrene; M06.9 Rheumatoid arthritis, unspecified; G89.4 Chronic pain syndrome; N32.81 Overactive bladder; N39.3 Stress incontinence (female) (male); D50.9 Iron deficiency anemia, unspecified; F32.A Depression, unspecified; F41.9 Anxiety disorder, unspecified; M85.80 Other specified disorders of bone density and structure, unspecified site; G47.00 Insomnia, unspecified; R73.03 Prediabetes; K58.9 Irritable bowel syndrome, unspecified; Z86.73 Personal history of transient ischemic attack (TIA), and cerebral infarction without residual deficits; Z87.891 Personal history of nicotine dependence; Z87.11 Personal history of peptic ulcer disease; Z79.82 Long term (current) use of aspirin; Z87.19 Personal history of other diseases of the digestive system
CPT/HCPCS: 36415; 73020; 80053; 82607; 82728; 82746; 83036; 83540; 83550; 85027; 86850; 86900; 86901; 87070; 93005; 97163; 97167; 97535; C1713; C1776

== ENCOUNTER 2024-09-17 08:20 | Inpatient (IN) | payer MEDICARE, OTHER, SELFPAY ==
[2024-09-14] VITALS (26 sets, daily range): BP systolic 85–126; BP diastolic 49–103; PULSE 82–101; BMI 18.9; BMI 19.0
[2024-09-14 12:54] LABS: Hematocrit 34.0 % (37.0-47.0); Hemoglobin 11.3 g/dL (12.0-16.0); Mean Corp Hgb Conc. 33.2 g/dL (33.0-37.0); Mean Corpuscular Volume 96.0 fL (81.0-99.0); Nucleated Red Blood Cells % 0 %; Platelet Count 337 10^3/uL (130-400); Red Cell Dist. Width 13.5 % (11.5-14.5)
[2024-09-14 13:14] LABS: ALT (SGPT) 14 U/L (0-35); AST (SGOT) 21 U/L (14-36); Albumin 3.4 g/dl (3.5-5.0); Alkaline Phosphatase 69 U/L (38-126); Blood Urea Nitrogen 10 mg/dl (7-17); Calcium 8.7 mg/dl (8.4-10.2); Carbon Dioxide 28 mmol/L (22-30); Chloride 104 mmol/L (98-107); Estimated Creatinine Clearance 47 ml/min; Glucose 92 mg/dl (70-99); Potassium 4.0 mmol/L (3.5-5.1); Sodium 136 mmol/L (135-145); Total Protein 6.2 g/dl (6.3-8.2); eGFR > 60.00
[2024-09-14 13:39] LABS: Troponin I < 0.012 ng/ml
--- NOTE | 2024-09-14 14:05 | ED.GENMED ---
History of Present Illness
General
Chief Complaint: Blood Pressure Problem
Time Seen by Provider: 09/14/24 13:47
History of Present Illness
History of Present Illness:
See MDM
Past History
Past History
ED Past Medical History: Cancer (malignant melanoma), CVA (2023, left centrum semiovale), GERD, Hypercholesterolemia, Psychiatric (anxiety), Other (osteopenia) and Other (ocular rosacea, chronic back pain, Raynaud's, diverticulosis, GI bleed )
ED Past Surgical History: Tonsilectomy and Other (Basal cell carcinoma resection)
Social History
Tobacco: Former smoker
Alcohol: None
Drug: None
Personal: Single
Living: alone
Employment: Retired
Family History
Family History: Other (Mother with dementia, father with T-cell lymphoma, Parkinson's and prostate cancer)
Phy Exam
Physical Exam
Physical Exam:
See MDM
Course
Orders/Labs/Results
Orders:
Orders
09/14/24
Electrocardiogram (*1) Stat
Comment: DONE
09/14/24 12:40
CBC/With Diff [Complete Blood Count/With Diff] Urgent
Comprehensive Metabolic Panel Urgent
TSH Reflex To Free T4 Urgent
Comment: ADD ON
Troponin I Urgent
09/14/24 14:00
Add On- LAB Urgent
Tests Added?: tsh reflex T4
Urinalysis Reflex To Culture Urgent
Abnormal Lab Results
09/14/24
12:40
RBC 3.54 L 10^6/uL
(4.20-5.40)
Hgb 11.3 L g/dL
(12.0-16.0)
Hct 34.0 L %
(37.0-47.0)
MCH 31.9 H pg
(27.0-31.0)
Absolute Monos (auto) 0.7 H 10^3/uL
(0.1-0.6)
Monocytes % 10.3 H %
(1.7-9.3)
Total Protein 6.2 L g/dl
(6.3-8.2)
Albumin 3.4 L g/dl
(3.5-5.0)
09/14/24 12:40
09/14/24 12:40
Vital Signs
Initial and Last Documented VS:
Initial Vital Signs
Temp Pulse Resp BP Pulse Ox
97.6 F 76 16 116/65 99
09/14/24 12:19 09/14/24 12:19 09/14/24 12:19 09/14/24 12:19 09/14/24 12:19
Last Documented Vital Signs
Temp Pulse Resp BP Pulse Ox
97.6 F 74 14 94/49 97
09/14/24 12:19 09/14/24 13:01 09/14/24 13:01 09/14/24 13:01 09/14/24 14:08
MDM/Problems Addressed
Differential Diagnosis Includes:
Note:
CHIEF COMPLAINT(S)
Dizziness and episodic low blood pressure following shoulder replacement surgery.
HISTORY OF PRESENT ILLNESS
The patient is an 83-year-old female with a history of a shoulder replacement who presents with episodes of dizziness and fluctuating low blood pressure. The symptoms have been ongoing for about three to four days. The blood pressure has ranged from
as low as 85 to 110/55 mmHg. The patient reports feeling queasy and weak, and unable to stand without feeling dizzy. There is no chest pain or palpitations reported. She describes a sensation 'like being lifted up,' which she associates with the
dizziness. The patient denies taking any blood pressure medications in the past as her blood pressure has historically been stable around 128/68 mmHg prior to surgery. There is no history of steroid use since the surgery, although dexamethasone was
listed in past medications. The patient has been experiencing difficulties in getting warm, suggestive of potential hypothyroidism, which will be further evaluated.
ADDITIONAL HISTORY OBTAINED FROM SOURCES OTHER THAN THE PATIENT
Per the caregiver, the patients blood pressure measurements have been inconsistent, providing multiple different readings during home monitoring. The patient was transported by ambulance due to weakness and inability to walk.
CHRONIC MEDICAL CONDITIONS SIGNIFICANTLY AFFECTING CARE
Chronic conditions affecting care include recurrent low blood pressure and dizziness post-surgery.
SOCIAL DETERMINANTS OF HEALTH
The patient is unable to attend follow-up appointments independently and is assisted by a caregiver for transportation and care at home.
PHYSICAL EXAM
General: Alert, no acute distress.
Skin: Warm, dry.
Head: Normocephalic, atraumatic.
Neck: Supple, trachea midline.
Eye, Ears, Nose, Mouth, and Throat: Oral mucosa moist.
Cardiovascular: Normal peripheral perfusion, no edema.
Respiratory: Respirations are non-labored.
Gastrointestinal: Abdomen non-distended.
Back: Normal range of motion, normal alignment.
Musculoskeletal: Normal ROM, normal strength.
Neurological: Alert and oriented to person, place, time, and situation, no focal neurological deficit observed.
Psychiatric: Cooperative, appropriate mood & affect.
PLAN
Continuation of fluids to evaluate response and symptom improvement. Thyroid function tests to be added to evaluate for possible hypothyroidism. Monitoring for any unusual heart rhythms via observation to rule out any potential cardiac causes.
Consideration of a Holter monitor during follow-up if cardiac symptoms persist. Discussion of potential initiation of midodrine for low blood pressure management upon review in follow-up care.
DIFFERENTIAL DIAGNOSIS
The Differential Diagnosis includes, in no particular order and is not limited to:
- Postural hypotension
- Cardiac arrhythmias (e.g., atrial fibrillation)
- Dehydration
- Adverse effect of medications
- Hypothyroidism
- Autonomic dysfunction
- Adrenal insufficiency
- Anemia
- Electrolyte imbalance
- Cardiac structural issues
SUMMARY OF ENCOUNTER
The patient presented to the emergency department with dizziness and fluctuations in blood pressure following a recent shoulder replacement surgery. Management in the emergency department included monitoring of blood pressure, administration of
fluids, and additional lab tests to evaluate thyroid function. The patient was assessed for potential cardiac rhythm issues, and a follow-up plan was discussed to ensure comprehensive management of her symptoms.
INDEPENDENT REVIEW OF LABS AND INTERPRETATION OF TESTS
My independent review of labs includes evaluating thyroid function for underlying causes, pending results.
MEDICAL DECISION MAKING
-Complexity of Data Reviewed: Chronic conditions affecting care include recurrent low blood pressure and dizziness post-surgery.
The Differential Diagnosis includes, in no particular order and is not limited to:
- Postural hypotension
- Cardiac arrhythmias (e.g., atrial fibrillation)
- Dehydration
- Adverse effect of medications
- Hypothyroidism
- Autonomic dysfunction
- Adrenal insufficiency
- Anemia
- Electrolyte imbalance
- Cardiac structural issues
-Data:
Category 1
The following testing was considered but not selected after discussion: cardiac monitoring with a Holter monitor for rhythm evaluation.
Category 2
Clinical information was obtained from an independent historian: the patients caregiver provided insights into fluctuating blood pressure readings at home.
Category 3
Discussion of management with other physician: Consideration of follow-up with primary care or flotation tender for continued management of low blood pressure.
-Risk:
Consideration of Admission/Observation: Escalation of care including admission/observation was considered due to the complexity and risk of the patients presenting complaint, exam findings, and underlying conditions. However, continued outpatient
management was suggested with close follow-up, as symptoms were well controlled upon reevaluation, and no acute life-threating processes were detected.
DIAGNOSIS
- Postural Hypotension (I95.1)
- Dizziness (R42)
- Suspected Hypothyroidism (E03.9)
EKG
My independent EKG interpretation is:
- Rhythm: Sinus rhythm
- Heart rate: 78 beats per minute
- Notable finding: PACs noted
- Interval: First-degree AV block
- [place]: Left axis deviation
- No evidence of acute coronary syndrome (CEMI)
DISPOSITION
The decision was made to admit the patient for telemetry monitoring in order to observe for any potential cardiac arrhythmias.
MANAGEMENT OF THE PATIENTS CARE WAS DISCUSSED WITH
The case was discussed with the hospital team regarding admission for telemetry monitoring and potential case management or physical therapy evaluation.
PLAN
The patient will be admitted for more intensive monitoring to observe her heart rhythm over a period and to rule out any arrhythmias. Additionally, consideration for a physical therapy evaluation will be made once cardiac monitoring is underway.
MEDICAL DECISION MAKING
-Complexity of Data Reviewed: Chronic conditions affecting care include recurrent low blood pressure and dizziness post-surgery. The Differential Diagnosis includes, in no particular order and is not limited to:
- Postural hypotension
- Cardiac arrhythmias (e.g., atrial fibrillation)
- Dehydration
- Adverse effect of medications
- Hypothyroidism
- Autonomic dysfunction
- Adrenal insufficiency
- Anemia
- Electrolyte imbalance
- Cardiac structural issues
-Data:
Category 2
Clinical information was obtained from an independent historian; the patients caregiver provided insights into fluctuating blood pressure readings at home.
-Risk:
Prescription medication management and potentially initiating midodrine was discussed if symptoms persisted. Admission was decided on due to the high complexity and underlying risks of the patients current condition and the potential for
cardiac-related issues.
DIAGNOSIS
- Postural Hypotension (I95.1)
- Dizziness (R42)
- Suspected Hypothyroidism (E03.9)
*Pulse Oximetry
SaO2: 97
Oxygen Mode of Delivery: Room air
Patient hypoxic: no
*Critical Care Note
Total Time (30-74mins, 75-104mins- exclusive of procedures): Not Applicable
ED Attending Note
-
Portions of this chart may have been created with voice recognition software.� Occasional wrong word or��sound alike� substitutions may have occurred due to the inherent limitations of voice recognition software.
Discharge Plan
Departure
Patient Disposition: Home (Routine Discharge)
Date of Disposition: 09/14/24
Time of Disposition: 14:34
Patient with high blood pressure during this ER visit?: No
Discharge Problem:
Hypotension, Dizziness
Prescriptions:
No Action
trazodone 50 mg Tablet
50 mg PO HSPRN PRN (Reason: sleep)
cyanocobalamin (vitamin B-12) [Vitamin B-12] 100 mcg Tablet
100 mcg PO DAILY
calcium carbonate-vitamin D3 600 mg-5 mcg (200 unit) Tablet
1 tab PO DAILY
atorvastatin 80 mg Tablet
80 mg PO QPM Qty: 30 0RF
folic acid 0.8 mg Capsule
0.8 mg PO DAILY
cholecalciferol (vitamin D3) [Vitamin D3] 25 mcg (1,000 unit) Tablet
25 mcg PO DAILY
pantoprazole [Protonix] 40 mg tablet,delayed release (DR/EC)
40 mg PO BID
hydrocodone-acetaminophen 10-325 mg tablet
1 tab PO TID PRN (Reason: Pain) 5 Days Qty: 15 0RF
ezetimibe 10 mg Tablet
10 mg PO DAILY
bupropion HCl 300 mg Tablet Extended Release 24 Hr
300 mg PO DAILY
mupirocin 2 % ointment
1 applic intranasal BID Qty: 1 0RF
Patient Comments:
last took at home 09/04/24 in am
dexamethasone 4 mg tablet
4 mg PO BID Qty: 5 0RF
Rx Instructions:
Start night of discharge and continue twice a day until finished.
Take with food.
ondansetron HCl 4 mg tablet
4 mg PO Q6H PRN (Reason: nausea and vomiting) Qty: 30 0RF
sennosides [Senokot] 8.6 mg tablet
17.2 mg PO BID Qty: 2 0RF
aspirin 325 mg tablet
325 mg PO DAILY Qty: 1 0RF
Rx Instructions:
Take with food
magnesium hydroxide [Milk of Magnesia] 400 mg/5 mL suspension
30 ml PO HS PRN (Reason: constipation) Qty: 1 0RF
Rx Instructions:
continue taking colace and senokot as advised--if no bowel movement 1 day after surgery -add milk of mag
docusate sodium [Colace] 100 mg capsule
100 mg PO BID Qty: 1 0RF
acetaminophen 500 mg Tablet
1,000 mg PO QID Qty: 0 0RF
Referrals:
UNKNOWN - PT NOT,INTERVIEWE [Family Provider]
Interventions
Interventions:
*Risk Screen - Suicide Last Done: 09/14/24 12:25
*General Assessment Last Done: 09/14/24 12:25
*Neglect/Abuse Screening Last Done: 09/14/24 12:25
*ED- Fall Risk Assessment Last Done: 09/14/24 12:25
*ED COVID-19 Vaccine History Last Done: 09/14/24 12:25
ED- Cardiac Assessment Last Done: 09/14/24 12:25
ED- Neurological Assessment Last Done: 09/14/24 12:25
ED- Pulmonary Assessment Last Done: 09/14/24 12:25
Discharge Date and Time
Print Language: AZERI
[2024-09-14 16:14] LABS: Urine Character Clear (Clear)
[2024-09-14 16:20] LABS: Urine Squamous Cell 21-25 /LPF (Few); Urine White Cell 0-2 /HPF (0-5)
--- NOTE | 2024-09-14 16:23 | W.PN.UPDATE ---
Update Note
Progress Note Update
Seen and examined by me independently in collaboration with the FP resident.
Past medical history/social history/medication/allergies reviewed.
Lab data and imaging data reviewed.
83-year-old lady status post left shoulder replacement 10 days ago presents with lightheadedness, dizziness, weakness. Symptoms worse if she moves or if she tries to stand up. Denies any spinning sensation or vertigo. No headache. Has neuropathy
of bilateral feet for a while otherwise no new neurological symptoms. No nausea or vomiting with it.
No chest pain or palpitation. Had constipation then she took laxatives with that she had loose stools but no diarrhea.
Symptoms ongoing for the last 3 days or so. Today she was so weak that she could not get up and they had to call ambulance.
No fever or chills. Denies any urinary symptoms.
No new joint symptoms. Pain from left shoulder is okay.
Noted to have blood pressure systolic in 80s which is low for her. Not known to have hypertension nor she is on any medication for blood pressure. Denies any history of cardiac disease.
Alert and oriented x 3. Nontoxic looking. Not septic.
Heart sound S1 plus S2 heard regular. Chest was clear. No carotid bruit.
No nystagmus. Pupils are equal reactive to light. No motor deficit. Could only check distal left arm strength.
Labs are unremarkable. EKG shows a sinus rhythm with PACs and first-degree AV block.
Symptomatic hypotension of unclear etiology.
No extrarenal losses. Renal function is okay.
We will hydrate her with IV fluids and follow the response.
Also follow on telemetry to rule out any arrhythmias. Check an echocardiogram.
In view of recent surgery check a D-dimer if it is elevated , evaluate for pulmonary embolism.
Full code.
--- NOTE | 2024-09-14 16:55 | HPS.HSE ---
Family Physician
-
Family Physician: Neto Zamora, DO
Chief Complaint
-
weakness and dizizness for the past 4 days.
History of Present Illness
�
83 yrs old female with a k/h/o Post-surgical Left shoulder arthroplasty, CVA arrived to the ER with sudden onset of weakness, she mentioned she is feeling weakness, dizziness, and swinging of her head even while on lying down. She remembers the
weakness and dizziness started after starting the laxatives. It is associated with cold body, dizziness on sitting, standing, some times it stays for more than 5 mins. Her home Blood pressure is fluctuating in between 85/54 BP. Weakness and
dizziness are not associated with abdominal pain, nausea, or vomiting, chest pain, palpitations, fever, chills.
Medical History
Past Medical History
Past Medical History: Reports CVA, Psychiatric (anxiety) and Other (left shoulder repair)
Past Surgical History: Reports Other (left shoulder repair)
Social History
Tobacco: Former Smoker
Alcohol: None
Drug: None
Personal: Single
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
Family History
Family History: Not pertinent
Allergies / Home Medications
Allergy/Medication List:
Allergies
Allergy/AdvReac Type Severity Reaction Status Date / Time
gabapentin Allergy dizziness Verified 09/04/24 10:32
per pain
management
Iodinated Contrast Media (IV Allergy Anaphylaxis Verified 09/04/24 10:32
Dye, Iodine Containing)
povidone-iodine (From Allergy Hives Verified 09/04/24 10:32
Betadine)
red dye (Red Dye) Allergy Hives Verified 09/04/24 10:32
soap (From Betadine) Allergy Hives Verified 09/04/24 10:32
Home Medications
calcium 600 mg (as carbonate)-vitamin D3 5 mcg (200 unit) tablet 1 tab PO DAILY Supplement 10/05/23
cyanocobalamin (vitamin B-12) 100 mcg tablet (Vitamin B-12) 100 mcg PO DAILY Supplement 10/05/23
trazodone 50 mg tablet 50 mg PO HSPRN PRN sleep 10/05/23
atorvastatin 80 mg tablet 80 mg PO QPM #30 tabs 10/08/23
cholecalciferol (vitamin D3) 25 mcg (1,000 unit) tablet (Vitamin D3) 25 mcg PO DAILY Supplement 03/15/24
pantoprazole 40 mg tablet,delayed release (Protonix) 40 mg PO BID Reflux 03/15/24
bupropion HCl 300 mg 24 hr tablet, extended release 300 mg PO DAILY Mental Health/Anxiety 08/13/24
ezetimibe 10 mg tablet 10 mg PO DAILY High Cholesterol 08/13/24
acetaminophen 500 mg tablet 1,000 mg PO QIDPRN PRN mild pain 09/14/24
aspirin 81 mg tablet,delayed release 81 mg PO DAILY 09/14/24
escitalopram oxalate 20 mg tablet (Lexapro) 20 mg PO QPM 09/14/24
folic acid 1 mg tablet 1 mg PO DAILY 09/14/24
hydrocodone 10 mg-acetaminophen 325 mg tablet 1 tab PO TID 09/14/24
Review of Systems
-
History Source: Patient and Other (with bed side career and technology education teacher )
EENT: Reports No Symptoms
Respiratory: Reports No Symptoms
Cardiac: Reports No Symptoms
Abdomen/GI: Reports No Symptoms
: Reports No Symptoms
Musculoskeletal: Reports Other (patient is on left side sling for Left shoulder repair)
Skin: Reports No Symptoms
Neurological: Reports Dizzy, Weakness and Other (lightheadedness)
Endocrine: Reports No Symptoms
Hematologic/Lymphatic: Reports No Symptoms
Psych: Reports No Symptoms
Physical Exam
Vital Signs
09/14/24 12:40
09/14/24 12:40
Laboratory Results
Total Bilirubin 0.4 mg/dl (0.2-1.3) 09/14/24 12:40
AST 21 U/L (14-36) 09/14/24 12:40
ALT 14 U/L (0-35) 09/14/24 12:40
Alkaline Phosphatase 69 U/L (38-126) 09/14/24 12:40
Troponin I < 0.012 ng/ml 09/14/24 12:40
Vital Signs
Temp Pulse Resp BP Pulse Ox
97.6 F 79 16 117/81 100
09/14/24 12:19 09/14/24 16:00 09/14/24 16:00 09/14/24 16:00 09/14/24 16:00
Physical Exam
General: No Apparent Distress
HEENT: Moist mucous membranes
Respiratory: Clear
Cardiac: S1/S2 and Regular Rhythm
GI: Soft, Non Tender and Non Distended
Neuro: AO x 3
Hematologic/Lymphatic: No Lymphadenopathy
Psych: Calm
Laboratory Results
-
09/14/24 12:40
09/14/24 12:40
Laboratory Results
Total Bilirubin 0.4 mg/dl (0.2-1.3) 09/14/24 12:40
AST 21 U/L (14-36) 09/14/24 12:40
ALT 14 U/L (0-35) 09/14/24 12:40
Alkaline Phosphatase 69 U/L (38-126) 09/14/24 12:40
Troponin I < 0.012 ng/ml 09/14/24 12:40
Impression/Plan
-
IMPRESSION & PLAN:
83 yrs old F with k/h/o Left side Shoulder arthroplasty, CVA presented with dizziness, weakness
# Lightheadedness:
-Patient had Symptomatic hypotension probably due to dehydration/ vascular etiology
- ECHO ordered to rule out vascular pathology.
#Urinalysis shows negative
#Normal Saline started in a rate of 100 ml/hr
#Telemetry started to rule out any arrhythmias.
# D-dimer order is placed to evaluate for pulmonary embolism.
# Orthostatic vitals placed to evaluate hypotension causes
# Anxiety:
Patient dies have a h/o anxiety and she is on bupropion, trazodone
Full code.
DVT prophylaxis: SCD
[2024-09-14] MEDS: NSS 1000 IV (20:59)
[2024-09-14] MEDS: FLUSH (NSS) 1 FLUSH IV (21:00)
[2024-09-14] MEDS: FOLVITE 1 MG PO (21:08)
[2024-09-14] MEDS: ASPIR LOW (ENTERIC COATED) 81 MG PO (21:08)
[2024-09-14] MEDS: LEXAPRO 20 MG PO (21:08)
[2024-09-14] MEDS: LIPITOR 80 MG PO (21:09)
[2024-09-14] MEDS: VITAMIN D3 (cholecalciferol) 25 MCG PO (21:09)
[2024-09-14] MEDS: ZETIA 10 MG PO (21:09)
[2024-09-14] MEDS: OSCAL 500 + D 500 MG PO (21:09)
[2024-09-14] MEDS: PROTONIX 40 MG PO (21:09)
[2024-09-14] MEDS: VITAMIN B-12 100 MCG PO (21:09)
[2024-09-14] MEDS: TYLENOL 1000 MG PO (21:15)
--- NOTE | 2024-09-14 22:00 | PTCARENOTE ---
Pt. admitted from [facility] AAO x 3, vs stable, call phillips within reach.
[2024-09-14] MEDS: WELLBUTRIN XL (24 hour extended release) 150 MG PO (22:21)
[2024-09-15] MEDS: NORCO 5/325 1 TABLET PO (00:16)
[2024-09-15] MEDS: DESYREL 50 MG PO (00:23)
--- NOTE | 2024-09-15 00:45 | PTCARENOTE ---
Pt. noted 'I feel anxious, like I'm going to get hysterical, I feel like throwing this cup of water across the room, R.N. notified CORI Yepez, ordered Xanax, will continue to monitor pt. status.
[2024-09-15] MEDS: XANAX 0.25 MG PO (00:54)
[2024-09-15 04:32] VITALS: BP 103/58
--- NOTE | 2024-09-15 07:28 | W.PN.HOSP.TC ---
Addendum entered and electronically signed by Westley Sarabia MD 09/15/24 15:32:
Seen and examined by me independently in collaboration with the emergency medical service manager.
Lab data and imaging data reviewed.
Addendum as below :
Patient had some lightheadedness today. Her blood pressure was 88 systolic which responded to fluid bolus of 500 mL. Denies any chest pain or shortness of breath. No headache or limb weakness. No nausea vomiting or diarrhea.
Was bit sleepy as she received Benadryl in preparation of chest CT for PE study.
No orthostatic drop in blood pressure noted. TSH and random cortisol are normal.
Unclear etiology for hypotension which seems to respond to fluids. Creatinine is normal.
Check an echocardiogram and in view of D-dimers check a CT PE study.
Discussed with daughter and updated regarding the clinical findings, investigative plan and current treatments.
Total time spent on today's encounter was 52 minutes which included time spent in counseling the patient/family regarding diagnosis and treatment plan as listed above, goals of care, and symptom management. Case was discussed with nursing staff,
specialists, and care coordinators/case management. All labs and imaging personally reviewed by me. Remainder the time spent in detailed review of previous records, lab data, imaging, and other medical provider documentation.
Original Note:
Today's Communication/Plan
-
cbc, cmp
echo
Assessment / Plan
Assessment / Plan
83 yrs old F with k/h/o Left side Shoulder arthroplasty, CVA presented with dizziness, weakness
# Weakness, dizziness:
On 09/14 Orthostatic blood pressure includes:
Supine= 120/68 FL= 86
Sitting= 114/71 FL= 82
Standing= 121/79 FL= 101
There is no drop of systolic more than 20 mmhg , diastolic more than 10 mmhg, no Heart rate increase more than 30 beats ruled out autonomic baroreflex , volume depletion causes for hypotension.
Patient electrolytes are within normal limits.
D- Dimer2.37 (H) , ECHO ordered to rule out the cause for valvular abnormalities.
Total protein, albumin were low
Current Blood pressure is around 88/44 and Normal saline bolus was started today.
# Left shoulder Arthroplasty:
POST OP analgesic patient was taking which includes hydrocodone- acetaminophen
# Anxiety:
Patient is taking trazodone 50 mg may be cause for hypotension.
#Cerebro vascular accident :
2023: Brain MRI: Atrophy. Chronic microvascular white matter ischemic disease.
2022 Brain MRI: Small acute nonhemorrhagic infarct in the left centrum semiovale measuring 3 mm.
Patient is on Aspirin 81 mg PO, Atorvastatin 80 mg PO for her chronic CVA.
CODE: FULL
Disposition: Home with Homecare.
Anticipated Discharge: Within 24 hours
Subjective/Interval History
-
Date of Service: September 15, 2024
Patient has a concern for the pain on her back and she wants to take her oxycodone. She feels restlessness. She is not willing to walk around because of the dizziness, and weakness.
Objective Data
-
Labs:
Laboratory Results
09/15/24 05:55
09/15/24 05:55
Laboratory Results
Total Bilirubin 0.3 mg/dl (0.2-1.3) 09/15/24 05:55
AST 20 U/L (14-36) 09/15/24 05:55
ALT 13 U/L (0-35) 09/15/24 05:55
Alkaline Phosphatase 60 U/L (38-126) 09/15/24 05:55
Troponin I < 0.012 ng/ml 09/14/24 12:40
Vital Signs:
Vital Signs
Temp Pulse Resp BP Pulse Ox
98.1 F 78 16 103/58 99
09/15/24 04:32 09/15/24 04:32 09/15/24 04:32 09/15/24 04:32 09/15/24 04:32
I&O
09/14/24 09/15/24 09/16/24
06:59 06:59 06:59
Intake Total 620 / 620
Output Total 200 / 200
Balance 420 / 420
Review of Systems
-
History Source: Patient
Constitutional: Reports Weakness
EENT: Reports No Symptoms Reported
Respiratory: Reports No Symptoms
Cardiac: Reports No Symptoms
Musculoskeletal: Reports Other (she has a back pain. )
Skin: Reports No Symptoms
Neuro: Reports No Symptoms
Endocrine: Reports No Symptoms
Hematologic / Lymphatic: Reports No Symptoms
Allergy / Immunology: Reports No Symptoms
Physical Exam
-
General: Cachectic
Respiratory: Clear to Auscultation
Cardiac: Regular Rhythm and S1/S2
GI: Soft, Nontender and Nondistended
Genito-urinary: No Costovertebral Tender
Musculoskeletal: No Clubbing
Skin: Warm
Neuro: AO x 3
Hematologic / Lymphatic: No Lymphadenopathy
[2024-09-15 07:57] VITALS: BP 88/44
[2024-09-15 07:59] LABS: D-Dimer 2.37 ug/mlFEU (0.00-0.50)
[2024-09-15 08:19] LABS: ALT (SGPT) 13 U/L (0-35); AST (SGOT) 20 U/L (14-36); Albumin 2.9 g/dl (3.5-5.0); Alkaline Phosphatase 60 U/L (38-126); Blood Urea Nitrogen 7 mg/dl (7-17); Calcium 8.3 mg/dl (8.4-10.2); Carbon Dioxide 25 mmol/L (22-30); Chloride 108 mmol/L (98-107); Estimated Creatinine Clearance 52 ml/min; Glucose 89 mg/dl (70-99); Potassium 3.8 mmol/L (3.5-5.1); Sodium 139 mmol/L (135-145); Total Protein 5.6 g/dl (6.3-8.2); eGFR > 60.00
[2024-09-15 08:25] LABS: Hematocrit 30.1 % (37.0-47.0); Hemoglobin 10.0 g/dL (12.0-16.0); Mean Corp Hgb Conc. 33.2 g/dL (33.0-37.0); Mean Corpuscular Volume 97.4 fL (81.0-99.0); Nucleated Red Blood Cells % 0 %; Platelet Count 332 10^3/uL (130-400); Red Cell Dist. Width 13.7 % (11.5-14.5)
[2024-09-15] MEDS: PROTONIX 40 MG PO ×2 (09:00→20:01)
[2024-09-15] MEDS: ASPIR LOW (ENTERIC COATED) 81 MG PO (09:00)
[2024-09-15] MEDS: FOLVITE 1 MG PO (09:00)
[2024-09-15] MEDS: VITAMIN B-12 100 MCG PO (09:00)
[2024-09-15] MEDS: WELLBUTRIN XL (24 hour extended release) 150 MG PO (09:00)
[2024-09-15] MEDS: ZETIA 10 MG PO (09:01)
[2024-09-15] MEDS: OSCAL 500 + D 500 MG PO (09:01)
[2024-09-15] MEDS: VITAMIN D3 (cholecalciferol) 25 MCG PO (09:01)
[2024-09-15] MEDS: NSS 500 IV (09:42)
[2024-09-15] MEDS: SOLU-CORTEF 200 MG IV (11:34)
[2024-09-15] MEDS: BENADRYL 50 MG IV (11:34)
[2024-09-15] MEDS: PERCOCET 5/325 1 TABLET PO (12:13)
[2024-09-15] MEDS: NSS 1000 IV (14:04)
[2024-09-15 14:59] LABS: Cortisol, Random 10.4 ug/dl
--- NOTE | 2024-09-15 15:53 | CM ---
Patient seen bedside w/ caregiver/family friend, Mariza. Initial assessment completed. Patient is a 83 yr old female with a k/h/o Post-surgical Left shoulder arthroplasty, CVA arrived to the ER with sudden onset of weakness and dizziness. Recent
admission (09/04-09/05), discharged home w/ [facility].
Patient resides alone in a 2STH w/ basement, 3 steps to enter. 14 steps to the second floor where bed and bath are located. Patient has 13/09 caregiver through [facility]. Patient is independent w/ ambulation w/ the use of a rollator, patient has 3
rollators total in the home, one on each floor. Patient has grab bar and shower chair in bathroom. Per Mariza, patient is independent w/ bathing, personal care on 'good days'. [facility] and [facility] in the past, current w/ [facility].
Address, points of contact and insurance verified. Per patient's request, would like to add Mariza as an additional contact
Mariza [facility]- [phone]. Updated admissions
PCP: Neto Zamora
Pharmacy: [facility]
Patient is currently admitted obs. CRUZ form verbally reviewed, copy provided, copy on chart
Per Mariza, prior to d/c, [facility] will need to be contacted to arrange caregiver for patient at home ([phone]). Calls are monitored 13/09.
[facility] referral for [facility] completed
Plan: Anticipate home, [facility] w/ [facility] and 13/09 caregivers
[2024-09-15 15:58] VITALS: BP 101/59
[2024-09-15] MEDS: LIPITOR 80 MG PO (17:36)
[2024-09-15] MEDS: LEXAPRO 20 MG PO (17:37)
[2024-09-15 19:32] VITALS: BP 113/58
[2024-09-15 22:57] VITALS: BP 90/46
[2024-09-16] VITALS (8 sets, daily range): BP systolic 98–140; BP diastolic 40–86; PULSE 89–90; O2SAT 98
[2024-09-16] MEDS: NSS 1000 IV ×2 (00:33→14:14)
[2024-09-16 05:58] LABS: Hematocrit 29.3 % (37.0-47.0); Hemoglobin 9.6 g/dL (12.0-16.0); Mean Corp Hgb Conc. 32.8 g/dL (33.0-37.0); Mean Corpuscular Volume 98.3 fL (81.0-99.0); Platelet Count 302 10^3/uL (130-400); Red Cell Dist. Width 13.6 % (11.5-14.5)
[2024-09-16 06:20] LABS: ALT (SGPT) 12 U/L (0-35); AST (SGOT) 18 U/L (14-36); Albumin 2.9 g/dl (3.5-5.0); Alkaline Phosphatase 58 U/L (38-126); Blood Urea Nitrogen 10 mg/dl (7-17); Calcium 8.1 mg/dl (8.4-10.2); Carbon Dioxide 24 mmol/L (22-30); Chloride 110 mmol/L (98-107); Estimated Creatinine Clearance 46 ml/min; Glucose 92 mg/dl (70-99); Potassium 3.9 mmol/L (3.5-5.1); Sodium 139 mmol/L (135-145); Total Protein 5.5 g/dl (6.3-8.2); eGFR > 60.00
[2024-09-16] MEDS: PROTONIX 40 MG PO ×2 (08:11→20:52)
[2024-09-16] MEDS: ASPIR LOW (ENTERIC COATED) 81 MG PO (08:11)
[2024-09-16] MEDS: WELLBUTRIN XL (24 hour extended release) 150 MG PO (08:11)
[2024-09-16] MEDS: VITAMIN D3 (cholecalciferol) 25 MCG PO (08:11)
[2024-09-16] MEDS: FOLVITE 1 MG PO (08:11)
[2024-09-16] MEDS: VITAMIN B-12 100 MCG PO (08:12)
[2024-09-16] MEDS: ZETIA 10 MG PO (08:12)
[2024-09-16] MEDS: OSCAL 500 + D 500 MG PO (08:12)
--- NOTE | 2024-09-16 08:50 | W.PN.HOSP.TC ---
Addendum entered and electronically signed by Westley Sarabia MD 09/16/24 12:33:
Seen and examined by me independently in collaboration with the medical sociologist.
Lab data and imaging data reviewed.
Addendum as below :
Patient says she has improved with regards to the dizziness. Supine blood pressure seems to be okay. When she walked with physical therapy there was a quick drop in blood pressure was sitting which got corrected also there was slight drop in
diastolic pressure meeting the criteria for orthostatic hypotension. The prior orthostatic BP rates did not suggest orthostatic hypotension. Her symptoms are orthostatic. I will suggest now of orthostatic hypotension possibly postop dysregulation
may be. No extrarenal losses. Doubt active GI bleed. Drop in H&H without external bleeding noted. Check heme test stools.
No evidence of PE. No evidence of arrhythmia. No evidence of focal infection.
Await echocardiogram.
Start on midodrine.
Original Note:
Today's Communication/Plan
-
- Continue orthostatic vitals follow up
Assessment / Plan
Assessment / Plan
83 yrs old F with k/h/o Left side Shoulder arthroplasty, CVA presented with dizziness, weakness
# Weakness, dizziness:
On 09/16 Orthostatic blood pressure includes:
Supine= 140/81 AK= 89
Sitting= 120/67 AK= 90
Ajyhbfem=802/68 AK= 89
There is no drop of systolic more than 20 mmhg , diastolic more than 10 mmhg, no Heart rate increase more than 30 beats ruled out autonomic baroreflex, volume depletion causes for hypotension.
Patient electrolytes, Renal function tests, cortisol 10.4, TSH =1.96 are within normal limits which rules out Bryson's disease, no recent infection induced,
Total protein, albumin were low
Current Blood pressure is around 127/68 and Normal saline bolus was started today.
D- Dimer 2.37 (H) however
CT CHEST IMPRESSION on 09/15/24:
1. No evidence of pulmonary embolism.
2. Bilateral lower lobe dependent subsegmental atelectasis. Mild subpleural fibrotic change.
3. Moderate to severe coronary artery calcifications.
currently patient blood pressure is improving with iv fluids.
# Left shoulder Arthroplasty:
POST OP analgesic patient was taking which includes hydrocodone- acetaminophen
# Anxiety:
Patient is taking trazodone 50 mg may be cause for hypotension.
#Cerebro vascular accident :
2023: Brain MRI: Atrophy. Chronic microvascular white matter ischemic disease.
2022 Brain MRI: Small acute nonhemorrhagic infarct in the left centrum semiovale measuring 3 mm.
Patient is on Aspirin 81 mg PO, Atorvastatin 80 mg PO for her chronic CVA.
CODE: FULL
Disposition: Home with Homecare.
DVT prophylaxis: SCD
Anticipated Discharge: Within 24 hours
Subjective/Interval History
-
Date of Service: September 16, 2024
Patient has a concern for weakness but doesn't has a concern for the dizziness, palpitation, chest pain, shortness of breath.
She is able to tolerate food.
Objective Data
-
Labs:
09/16/24 04:06
09/16/24 04:06
Laboratory Results
Total Bilirubin 0.3 mg/dl (0.2-1.3) 09/16/24 04:06
AST 18 U/L (14-36) 09/16/24 04:06
ALT 12 U/L (0-35) 09/16/24 04:06
Alkaline Phosphatase 58 U/L (38-126) 09/16/24 04:06
Troponin I < 0.012 ng/ml 09/14/24 12:40
Laboratory Results
09/16/24
04:06
WBC 8.6
Hgb 9.6 L
Hct 29.3 L
Plt Count 302
Sodium 139
Potassium 3.9
Chloride 110 H
Carbon Dioxide 24
BUN 10
Creatinine 0.8
Glucose 92
Calcium 8.1 L
Total Bilirubin 0.3
AST 18
ALT 12
Alkaline Phosphatase 58
Vital Signs:
Vital Signs
Temp Pulse Resp BP Pulse Ox
98.2 F 86 16 99/40 100
09/16/24 08:00 09/16/24 08:00 09/16/24 08:00 09/16/24 08:00 09/16/24 08:00
I&O
09/15/24 09/16/24 09/17/24
06:59 06:59 06:59
Intake Total 620 / 620 600 / 600
Output Total 200 / 200
Balance 420 / 420 600 / 600
Review of Systems
-
History Source: Patient
Constitutional: Reports Weakness
Respiratory: Reports No Symptoms
Cardiac: Reports No Symptoms
Abdomen/GI: Reports No Symptoms
Genitourinary: Reports No Symptoms
Musculoskeletal: Reports No Symptoms
Skin: Reports No Symptoms
Neuro: Reports No Symptoms
Endocrine: Reports No Symptoms
Hematologic / Lymphatic: Reports No Symptoms
Allergy / Immunology: Reports No Symptoms
Physical Exam
-
General: Well Developed
HEENT: Moist Mucous Membranes
Respiratory: Clear to Auscultation
Cardiac: Regular Rhythm and S1/S2
GI: Soft, Nontender and Nondistended
Genito-urinary: No Costovertebral Tender
Musculoskeletal: No Clubbing
Skin: Warm
Neuro: AO x 3
Hematologic / Lymphatic: No Lymphadenopathy
Psych: Calm
[2024-09-16] MEDS: PERCOCET 5/325 1 TABLET PO ×2 (10:34→18:22)
[2024-09-16] MEDS: LEXAPRO 20 MG PO (17:45)
[2024-09-16] MEDS: LIPITOR 80 MG PO (17:55)
[2024-09-17 03:34] VITALS: BP 105/69
[2024-09-17 08:00] VITALS: BP 100/64; BP 122/66; BP 67/26; PULSE 79; PULSE 85; PULSE 95
[2024-09-17 08:02] LABS: Hematocrit 34.0 % (37.0-47.0); Hemoglobin 11.3 g/dL (12.0-16.0); Mean Corp Hgb Conc. 33.2 g/dL (33.0-37.0); Mean Corpuscular Volume 96.6 fL (81.0-99.0); Platelet Count 333 10^3/uL (130-400); Red Cell Dist. Width 13.8 % (11.5-14.5)
--- NOTE | 2024-09-17 08:16 | VNURNOTE ---
Chart reviewed. Patient is current with [facility]. Will continue to follow hospital course and DC plans.
[2024-09-17] MEDS: PERCOCET 5/325 1 TABLET PO ×2 (08:32→18:30)
[2024-09-17 08:37] LABS: ALT (SGPT) 14 U/L (0-35); AST (SGOT) 23 U/L (14-36); Albumin 3.3 g/dl (3.5-5.0); Alkaline Phosphatase 65 U/L (38-126); Blood Urea Nitrogen 8 mg/dl (7-17); Calcium 8.9 mg/dl (8.4-10.2); Carbon Dioxide 27 mmol/L (22-30); Chloride 105 mmol/L (98-107); Estimated Creatinine Clearance 51 ml/min; Glucose 92 mg/dl (70-99); Potassium 4.0 mmol/L (3.5-5.1); Sodium 137 mmol/L (135-145); Total Protein 6.1 g/dl (6.3-8.2); eGFR > 60.00
--- NOTE | 2024-09-17 09:00 | CARDSERVLU ---
Echocardiogram with [facility] completed after protocol screening completed. Allergies verified.
Patent IV site: _R hand ____
IV site flushed with 0.9% NaCl pre and post administration.
Diluted bolus method utilized to enhance visualization of ventricular lowe.
Total volume given: ___1.5_ mL
Patient tolerated all procedures well without complications.
[2024-09-17] MEDS: WELLBUTRIN XL (24 hour extended release) 150 MG PO (10:18)
[2024-09-17] MEDS: VITAMIN D3 (cholecalciferol) 25 MCG PO (10:20)
[2024-09-17] MEDS: PROTONIX 40 MG PO ×2 (10:20→20:40)
[2024-09-17] MEDS: ZETIA 10 MG PO (10:20)
[2024-09-17] MEDS: FOLVITE 1 MG PO (10:20)
[2024-09-17] MEDS: ASPIR LOW (ENTERIC COATED) 81 MG PO (10:20)
[2024-09-17] MEDS: OSCAL 500 + D 500 MG PO (10:23)
[2024-09-17] MEDS: VITAMIN B-12 100 MCG PO (10:23)
[2024-09-17 11:16] VITALS: BP 101/64
--- NOTE | 2024-09-17 14:11 | CM ---
Patient has switched to inpatient, IMM given, physical therapy are recommending skilled placement options reviewed with patient and she has selected [facility], referral sent to [facility] for skilled placement.
Plan; Skilled placement at [facility], referral sent.
[2024-09-17 14:57] VITALS: BP 114/63
--- NOTE | 2024-09-17 16:29 | W.PN.HOSP.TC ---
Addendum entered and electronically signed by Frank Concepcion MD 09/18/24 16:40:
Orthostatic hypotension
Encourage compression stockings abdominal binder
Started on midodrine
D-dimer high CT chest was completed no evidence of PE
2D echocardiogram completed EF 6065%, no obvious LVH, no regional wall motion abnormalities
EKG sinus rhythm with PACs first-degree AV block
Left shoulder arthroplasty
Continue analgesics
Mild protein calorie malnutrition
Start Boost TID WM
Continue Remeron
Anxiety
Continue trazodone
CVA
Continue statin aspirin
Original Note:
Today's Communication/Plan
-
Continue orthostatic vitals follow up
Add Boost TID with every meal
Encourage compression stocking and abdominal binders to increase cardiac preload
Assessment / Plan
Assessment / Plan
83 yrs old F with k/h/o Left side Shoulder arthroplasty, CVA presented with dizziness, weakness
# Weakness, dizziness:
On 09/16 Orthostatic blood pressure includes:
Supine= 140/81 WI= 89
Sitting= 120/67 WI= 90
Sewhjcsp=203/68 WI= 89
There is no drop of systolic more than 20 mmhg , diastolic more than 10 mmhg, no Heart rate increase more than 30 beats ruled out autonomic baroreflex, volume depletion causes for hypotension.
Patient electrolytes, Renal function tests, cortisol 10.4, TSH =1.96 are within normal limits which rules out Sykeston's disease, no recent infection induced,
Total protein, albumin were low
Current Blood pressure is around 127/68 and Normal saline bolus was started today.
D- Dimer 2.37 (H) however
CT CHEST IMPRESSION on 09/15/24:
1. No evidence of pulmonary embolism.
2. Bilateral lower lobe dependent subsegmental atelectasis. Mild subpleural fibrotic change.
3. Moderate to severe coronary artery calcifications.
currently patient blood pressure is improving with iv fluids.
Echocardiogram (09/17/24)- normal-appearing LV size and function with no obvious regional wall motion abnormalities.
LVEF is 60-65% by visual estimation. No obvious LVH.
Normal appearing RV size and function.
Mild to moderate mitral stenosis.
Compared to prior from October 05, 2023, no significant change.
Fall precaution
PT/OT consult: Physical Limitation noted (sits with moderate assistance, too weak and unsteady to ambulate with Hemiwalker)
Plan: followed every other day, skilled rehab recommended 1-2 hours/day
Added Boost TID with normal diet.
Encouraged to use compression stockings and abdominal binder for improved preload.
# Left shoulder Arthroplasty:
POST OP analgesic patient was taking which includes hydrocodone- acetaminophen
# Anxiety:
Patient does not want to eat and verbalized that she feels very weak and 'does not what to go on' because 'what's the point'
Patient is taking trazodone 50 mg may be cause for hypotension.
#Cerebro vascular accident :
2023: Brain MRI: Atrophy. Chronic microvascular white matter ischemic disease.
2022 Brain MRI: Small acute nonhemorrhagic infarct in the left centrum semiovale measuring 3 mm.
Patient is on Aspirin 81 mg PO, Atorvastatin 80 mg PO for her chronic CVA.
CODE: FULL
Disposition: Home with Homecare.
DVT prophylaxis: SCD
Anticipated Discharge: 24 - 48 hours
Subjective/Interval History
-
Date of Service: September 17, 2024
Patient's blood pressure is normal in supine position. She does not report any dizziness or lightheadedness.
However, she expresses that she feels weak and does not want to eat. When encouraged to eat so she can get better, the patient conveys that she does not want to go on because 'what's the point'.
Objective Data
-
Labs:
Laboratory Results
09/17/24
07:33
WBC 10.3
Hgb 11.3 L
Hct 34.0 L
Plt Count 333
Sodium 137
Potassium 4.0
Chloride 105
Carbon Dioxide 27
BUN 8
Creatinine 0.7
Glucose 92
Calcium 8.9
Total Bilirubin 0.3
AST 23
ALT 14
Alkaline Phosphatase 65
Vital Signs:
Vital Signs
Temp Pulse Resp BP Pulse Ox
98.3 F 78 16 114/63 96
09/17/24 14:57 09/17/24 14:57 09/17/24 14:57 09/17/24 14:57 09/17/24 14:57
I&O
09/16/24 09/17/24 09/18/24
06:59 06:59 06:59
Intake Total 600 / 600 600 / 600 240 / 240
Balance 600 / 600 600 / 600 240 / 240
Review of Systems
-
History Source: Patient
Constitutional: Reports No Appetite and Weakness
EENT: Reports No Symptoms Reported
Respiratory: Reports Other (No cough, trouble breathing or wheezing noted)
Cardiac: Reports Other (Denies chest pain, palpitations, syncope)
Abdomen/GI: Reports Other (Denies vomiting, diarrhea, pain)
Genitourinary: Reports No Symptoms
Neuro: Reports Weakness
Hematologic / Lymphatic: Reports Other (Denies bleeding)
Physical Exam
-
General: Well Developed, No Apparent Distress and Conversant
HEENT: Normocephalic and Atraumatic
Respiratory: Clear to Auscultation
Cardiac: Regular Rhythm and S1/S2
Breast: Deferred by me
GI: Soft, Nontender and Normal Bowel Sounds
Rectal: Deferred by Provider
Musculoskeletal: No Edema
Skin: Warm
Neuro: AO x 3, No Motor Deficits and No Sensory Deficits
Psych: Anxious
[2024-09-17 17:55] VITALS: BP 117/66; BP 120/70; PULSE 78; PULSE 89
[2024-09-17] MEDS: LEXAPRO 20 MG PO (18:26)
[2024-09-17] MEDS: LIPITOR 80 MG PO (18:29)
[2024-09-17 19:28] VITALS: BP 114/62
[2024-09-18] VITALS (8 sets, daily range): BP systolic 83–127; BP diastolic 49–72; PULSE 77–96
[2024-09-18] MEDS: PERCOCET 5/325 1 TABLET PO ×2 (03:11→17:09)
[2024-09-18 08:18] LABS: Blood Urea Nitrogen 11 mg/dl (7-17); Calcium 8.9 mg/dl (8.4-10.2); Carbon Dioxide 27 mmol/L (22-30); Chloride 103 mmol/L (98-107); Estimated Creatinine Clearance 51 ml/min; Glucose 82 mg/dl (70-99); Potassium 4.2 mmol/L (3.5-5.1); Sodium 136 mmol/L (135-145); eGFR > 60.00
[2024-09-18 08:55] LABS: Hematocrit 33.0 % (37.0-47.0); Hemoglobin 11.1 g/dL (12.0-16.0); Mean Corp Hgb Conc. 33.6 g/dL (33.0-37.0); Mean Corpuscular Volume 95.7 fL (81.0-99.0); Nucleated Red Blood Cells % 0 %; Platelet Count 325 10^3/uL (130-400); Red Cell Dist. Width 13.5 % (11.5-14.5)
[2024-09-18] MEDS: ZETIA 10 MG PO (09:32)
[2024-09-18] MEDS: OSCAL 500 + D 500 MG PO (09:32)
[2024-09-18] MEDS: ASPIR LOW (ENTERIC COATED) 81 MG PO (09:32)
[2024-09-18] MEDS: FOLVITE 1 MG PO (09:32)
[2024-09-18] MEDS: VITAMIN D3 (cholecalciferol) 25 MCG PO (09:33)
[2024-09-18] MEDS: PROTONIX 40 MG PO ×2 (09:33→19:42)
[2024-09-18] MEDS: VITAMIN B-12 100 MCG PO (09:33)
[2024-09-18] MEDS: WELLBUTRIN XL (24 hour extended release) 150 MG PO (09:33)
--- NOTE | 2024-09-18 12:49 | CM ---
Referral sent to [facility] for skilled placement, waiting on a determination from admissions at [facility].
Plan; Skilled placement at [facility] when stable.
--- NOTE | 2024-09-18 15:01 | W.PN.HOSP.TC ---
Addendum entered and electronically signed by Frank Concepcion MD 09/19/24 14:20:
Orthostatic hypotension, no further symptomatic
Encourage compression stockings abdominal binder
Started on midodrine, will increase dose
D-dimer high CT chest was completed no evidence of PE
2D echocardiogram completed EF 6065%, no obvious LVH, no regional wall motion abnormalities
EKG sinus rhythm with PACs first-degree AV block
Back pain, chronic issue that has been ongoing
Left shoulder arthroplasty
Continue analgesics
Anxiety/Depression
DC trazadone
Continue wellbutrin xl
Start remeron 15mg HS (antidepressant and appetite stimulant)
Outpatient psych follow up
CVA
Continue statin aspirin
DC to Snf when bed available
Original Note:
Today's Communication/Plan
-
Clear for discharge once SNIF is available.
Use abdominal binder and compression stocking for improved preload.
Continue orthostatic vital follow up
Assessment / Plan
Assessment / Plan
83 yrs old F with k/h/o Left side Shoulder arthroplasty, CVA presented with dizziness, weakness
# Weakness, dizziness:
On 09/18 Orthostatic blood pressure positive
Patient advised to use abdominal binder and compression stockings to improve preload
PT recommends SNF rehab when medically stable.
PT referral as outpatient. Patient has been advised.
[facility] referral has been started. Estimated time for transfer is .
Fall precaution
Added Boost TID with normal diet.
Increase Midodrine dose from 5 to 7.5
Past pertinent studies:
Patient electrolytes, Renal function tests, cortisol 10.4, TSH =1.96 are within normal limits which rules out Bryson's disease, no recent infection induced,
Total protein, albumin were low
Current Blood pressure is around 127/68 and Normal saline bolus was started today.
D- Dimer 2.37 (H) however
CT CHEST IMPRESSION on 09/15/24:
1. No evidence of pulmonary embolism.
2. Bilateral lower lobe dependent subsegmental atelectasis. Mild subpleural fibrotic change.
3. Moderate to severe coronary artery calcifications.
currently patient blood pressure is improving with iv fluids.
Echocardiogram (09/17/24)- normal-appearing LV size and function with no obvious regional wall motion abnormalities.
LVEF is 60-65% by visual estimation. No obvious LVH.
Normal appearing RV size and function.
Mild to moderate mitral stenosis.
Compared to prior from October 05, 2023, no significant change.
Mild protein calorie malnutrition
Continue Boost TID with meals.
Start Mirtazapine 15mg
# Left shoulder Arthroplasty:
POST OP analgesic patient was taking which includes hydrocodone- acetaminophen
Well healing wound, no pain or complaints noted, but limiting patient's ability to use hemiwalker.
# Anxiety:
Patient does not want to eat and verbalized that she feels very weak and 'does not what to go on' because 'what's the point'
Stop Trazodone, Start Mirtazapine 15 mg
Psychiatric referral as outpatient
#Cerebro vascular accident :
2023: Brain MRI: Atrophy. Chronic microvascular white matter ischemic disease.
2022 Brain MRI: Small acute nonhemorrhagic infarct in the left centrum semiovale measuring 3 mm.
Patient is on Aspirin 81 mg PO, Atorvastatin 80 mg PO for her chronic CVA.
CODE: FULL
Disposition: Home with Homecare.
DVT prophylaxis: SCD
Anticipated Discharge: 24 - 48 hours
Subjective/Interval History
-
Date of Service: September 18, 2024
Complaints of weakness and feeling depressed. She feels anxious about her condition. Daughter is also concerned about mother's mental condition.
Objective Data
-
Labs:
Laboratory Results
09/18/24 09/18/24
05:53 08:29
WBC Cancelled 9.9
Hgb Cancelled 11.1 L
Hct Cancelled 33.0 L
Plt Count Cancelled 325
Sodium 136
Potassium 4.2
Chloride 103
Carbon Dioxide 27
BUN 11
Creatinine 0.7
Glucose 82
Calcium 8.9
Vital Signs:
Vital Signs
Temp Pulse Resp BP Pulse Ox
98.4 F 79 17 113/60 97
09/18/24 11:29 09/18/24 13:39 09/18/24 11:29 09/18/24 13:39 09/18/24 11:29
I&O
09/17/24 09/18/24 09/19/24
06:59 06:59 06:59
Intake Total 600 / 600 480 / 480
Balance 600 / 600 480 / 480
Review of Systems
-
History Source: Patient
Constitutional: Reports Other
EENT: Reports No Symptoms Reported
Respiratory: Reports Other (No cough, trouble breathing or wheezing noted)
Cardiac: Reports Other (Denies chest pain, palpitations, syncope)
Abdomen/GI: Reports Other (Denies vomiting, diarrhea, pain)
Genitourinary: Reports No Symptoms
Neuro: Reports Weakness
Hematologic / Lymphatic: Reports Other (Denies bleeding)
Physical Exam
-
General: Well Developed, No Apparent Distress and Conversant
HEENT: Normocephalic and Atraumatic
Respiratory: Clear to Auscultation
Cardiac: Regular Rhythm and S1/S2
Breast: Deferred by me
GI: Soft, Nontender and Normal Bowel Sounds
Rectal: Deferred by Provider
Musculoskeletal: No Edema
Skin: Warm
Neuro: AO x 3, No Motor Deficits and No Sensory Deficits
Psych: Anxious
[2024-09-18] MEDS: LIPITOR 80 MG PO (16:59)
[2024-09-18] MEDS: LEXAPRO 20 MG PO (16:59)
[2024-09-18] MEDS: MIRALAX 17 GRAMS PO (18:27)
[2024-09-18] MEDS: SENOKOT-S 1 TABLET PO (19:42)
[2024-09-18] MEDS: REMERON 15 MG PO (22:21)
[2024-09-19] VITALS (8 sets, daily range): BP systolic 80–106; BP diastolic 51–59; PULSE 71–88; O2SAT 84
[2024-09-19 07:42] LABS: Hematocrit 34.2 % (37.0-47.0); Hemoglobin 11.6 g/dL (12.0-16.0); Mean Corp Hgb Conc. 33.9 g/dL (33.0-37.0); Mean Corpuscular Volume 95.5 fL (81.0-99.0); Platelet Count 311 10^3/uL (130-400); Red Cell Dist. Width 13.5 % (11.5-14.5)
--- NOTE | 2024-09-19 08:07 | W.PN.ORTHO ---
Today's Communication / Plan
-
Discontinue sling
Start progressive PT
Follow-up with Dr. Nguyen 6 weeks postop to check her progress
Assessment
.
Distal Motor Intact: Yes
Dressing:
Dressing was removed and incision is clean, dry and intact. Incision left open to air.
Plan
.
Surgery / Date: L reverse TSA 09/04 Patrick
Activity:
Out of bed.
PT/OT
Subjective
.
.:
Patient resting comfortably.
Vital Signs and Labs
.
Vital Signs and Labs:
Lab Results
09/19/24 07:14
Temp Pulse Resp BP Pulse Ox
98.4 F 71 16 96/52 97
09/19/24 03:42 09/19/24 03:42 09/19/24 03:42 09/19/24 03:42 09/19/24 03:42
Physical Exam
-
Left shoulder no warmth, erythema or pain. Passive range of motion reveals elevation 90 degrees, external rotation 20 degrees and internal rotation minimal. Global rotator cuff weakness noted.
[2024-09-19 08:10] LABS: Blood Urea Nitrogen 13 mg/dl (7-17); Calcium 9.4 mg/dl (8.4-10.2); Carbon Dioxide 29 mmol/L (22-30); Chloride 103 mmol/L (98-107); Estimated Creatinine Clearance 45 ml/min; Glucose 88 mg/dl (70-99); Potassium 3.9 mmol/L (3.5-5.1); Sodium 136 mmol/L (135-145); eGFR > 60.00
[2024-09-19] MEDS: VITAMIN B-12 100 MCG PO (08:38)
[2024-09-19] MEDS: OSCAL 500 + D 500 MG PO (08:38)
[2024-09-19] MEDS: WELLBUTRIN XL (24 hour extended release) 150 MG PO (08:38)
[2024-09-19] MEDS: ZETIA 10 MG PO (08:38)
[2024-09-19] MEDS: VITAMIN D3 (cholecalciferol) 25 MCG PO (08:39)
[2024-09-19] MEDS: SENOKOT-S 1 TABLET PO ×2 (08:39→20:13)
[2024-09-19] MEDS: PROTONIX 40 MG PO ×2 (08:39→20:13)
[2024-09-19] MEDS: ASPIR LOW (ENTERIC COATED) 81 MG PO (08:39)
[2024-09-19] MEDS: FOLVITE 1 MG PO (08:39)
[2024-09-19] MEDS: MIRALAX 17 GRAMS PO (08:40)
[2024-09-19] MEDS: PERCOCET 5/325 1 TABLET PO (08:52)
--- NOTE | 2024-09-19 11:24 | PN.CDI ---
CDI
- -
CDI:
Physician Documentation Request
Admit Date: 09/17/24 08:20
Dear Doctor So,
09/18 progress notes include a diagnosis of mild protein calorie malnutrition.
09/15 RD note states 'She states that she eats a regular diet and her appetite is normal. She states that she always loses a little bit of weight in the summer....Current BW; (09/14) 117 lbs 8 oz BMI: 19.0 (normal). Weight history (03/16/24) 119 lbs'
To ensure the quality of the medical record, based on the above information and the recognized standards for malnutrition , could you please verify in your progress notes which of the following responses best reflects the patient's nutritional
status:
Mild Malnutrition is/was present and is a clinical diagnosis (please provide additional support in the medical record)
No nutritional deficiency
Other (please specify)
[place] Criteria ([facility] Hospitalist 2017)
2 or more criteria must be present for either
non severe or severe malnutrition
Note that the criteria differs related to the
presence of an acute or chronic illness
Acute Illness Chronic Illness
Energy Intake Non Severe: <75% for >7 days Non Severe: <75% for >1 month
Severe: <50% for >5 days Severe: <75% for >1 month
Weight Loss Non Severe: 1-2% over 1 week Non Severe: 5% over 1 month
5% over 1 month 7.5% over 3 months
7.5% over 3 months 10% over 6 months
1 year N/A 20% over 1 year
Severe: >2% over 1 week Severe: >5% over 1 month
>5% over 1 month >7.5% over 3 months
>7.5% over 3 months >10% over 6 months
1 year N/A >20% over 1 year
Body Fat Non Severe: Mild Decrease Non Severe: Mild Loss
Severe: Moderate Decrease Severe: Severe Loss
Muscle Mass Non Severe: Mild Decrease Non Severe: Mild Loss
Severe: Moderate Decrease Severe: Severe Loss
Fluid Accumulation Non Severe: Mild Accumulation Non Severe: Mild Accumulation
Severe: Moderate to severe Severe: Moderate to severe
accumulation accumulation
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
Severe: Measurably reduced Severe: Measurably reduced
Use of terms such as suspected, likely, concern for, or probable (associated with a specific diagnosis that is being evaluated, monitored, or treated as if it exists) are acceptable and can be coded in the inpatient setting, when documented at the
time of discharge.
Thank you,
Enid Boykin RN, BSN
CDI Specialist
tiger text
Please use your independent medical judgment in providing your response.
[2024-09-19] MEDS: NSS 1000 IV (12:09)
--- NOTE | 2024-09-19 12:59 | CM ---
Chart reviewed and plan is for skilled placed, patient has been accepted at [facility] and bed is available tomorrow 09/20/24.
[facility] skilled
Report [phone]
fax [phone]
Plan: [facility] skilled tomorrow.
--- NOTE | 2024-09-19 15:23 | W.PN.HOSP.TC ---
Addendum entered and electronically signed by Frank Concepcion MD 09/20/24 15:18:
Orthostatic hypotension, no further symptomatic
Encourage compression stockings abdominal binder
Started on midodrine
D-dimer high CT chest was completed no evidence of PE
2D echocardiogram completed EF 6065%, no obvious LVH, no regional wall motion abnormalities
EKG sinus rhythm with PACs first-degree AV block
Back pain, chronic issue that has been ongoing
Left shoulder arthroplasty
Continue analgesics
Anxiety/Depression
DC trazadone
Continue wellbutrin xl
Started remeron 15mg HS (antidepressant and appetite stimulant)
Outpatient psych follow up
Hypotensive
New white count, did not complain of urinary nor respiratory symtpoms, no skin changes to suspect abscess/cellulitis
CXR obtained without evidence of infectious process
IVF started
Leukocytosis
Likely reactive in the setting of constipation
Afebrile without source/focality of infectious process
Therefore, will monitor off of atb, if develops fevers/worsening white count then will start atb and check cultures prior to atbs
CVA
Continue statin aspirin
DC to Snf when bed available
Original Note:
Today's Communication/Plan
-
Confirm SNIF status
Perform Skin exam
Order Chest X ray to check for infectious process
Continue monitoring for orthostatic blood pressure
PT and Psychologic as outpatient consult
Assessment / Plan
Assessment / Plan
83 yrs old F with k/h/o Left side Shoulder arthroplasty, CVA presented with dizziness, weakness
# Weakness, dizziness:
Hypotensive today: 80/51
To consider dehydration vs. infectious process
Patient using abdominal binder and compression stockings to improve preload
0.9 NSS 1000ml 80ml/hr, 1 bag given- Current BP: 98/53
Monitor for signs of infection.
PT follows every other day and recommends SNF rehab when medically stable.
PT referral as outpatient. Patient has been advised.
SNIF referral has been started. Estimated time for transfer is -- waiting to hear back from case management.
Fall precaution
Added Boost TID with normal diet.
Increase Midodrine dose from 5 to 7.5
Past pertinent studies:
Patient electrolytes, Renal function tests, cortisol 10.4, TSH =1.96 are within normal limits which rules out Bryson's disease, no recent infection induced,
Total protein, albumin were low
D- Dimer 2.37 (H) however
CT CHEST IMPRESSION on 09/15/24:
1. No evidence of pulmonary embolism.
2. Bilateral lower lobe dependent subsegmental atelectasis. Mild subpleural fibrotic change.
3. Moderate to severe coronary artery calcifications.
currently patient blood pressure is improving with iv fluids.
Echocardiogram (09/17/24)- normal-appearing LV size and function with no obvious regional wall motion abnormalities.
LVEF is 60-65% by visual estimation. No obvious LVH.
Normal appearing RV size and function.
Mild to moderate mitral stenosis.
Compared to prior from October 05, 2023, no significant change.
#Leukocytosis
WBC 13.1H today, previous day 9.9
-CT chest (09/19/2024): Peripheral nodular densities within the left upper lung, corresponding to peripheral scarring seen on recent CT examination. The lungs appear otherwise clear. Moderate to large amount of gaseous distention of the visualized
stomach
Heart is displaced into the right side of the chest, stable.--patient rotated position.
Patient has urinary incontinence and frequency, noted to not be a new symptom. No dysuria, discharge, dark urine noted.
Skin check:
Scalp: (+) psoriasis localized in the scalp
Head: (+) Seborrheic Keratosis in right temporal lobe
Neck: (+) bruise on left lateral inferior neck from post surgery,
Chest: unremarkable
Back: (-) pressure ulcers
Upper Extremities: (+) well healing incision, no swelling or pain noted at the site
Lower Extremities: (+) Seborrheic Keratosis in left anterior thigh. (+) solar lentigo
(+) tenderness, generalized fissuring and overlying scales on bilateral lower leg, (+)well demarcated, non-erythematous, smooth, plaque in the left anterior lower leg, (+) lichenified skin medial leg.
Feet: (+) tinea pedis with red crust evident of wound healing
Skin check seemingly unremarkable for skin infection possibly causing the leukocytosis.
Discuss daily foot check
Give antifungal for tinea pedis
Continue monitoring for pressure ulcers.
#Loss of appetite
Continue Boost TID with meals.
Start Mirtazapine 15mg
# Left shoulder Arthroplasty:
POST OP analgesic patient was taking which includes hydrocodone- acetaminophen
Well healing wound, no pain or complaints noted, but limiting patient's ability to use hemiwalker.
# Anxiety:
Patient does not want to eat and verbalized that she feels very weak and mentions that she feel anxious about her condition.
Stop Trazodone, Start Mirtazapine 15 mg
Psychiatric referral as outpatient
#Cerebro vascular accident :
2023: Brain MRI: Atrophy. Chronic microvascular white matter ischemic disease.
2022 Brain MRI: Small acute nonhemorrhagic infarct in the left centrum semiovale measuring 3 mm.
Patient is on Aspirin 81 mg PO, Atorvastatin 80 mg PO for her chronic CVA.
CODE: FULL
Disposition: Home with Homecare.
DVT prophylaxis: SCD
Anticipated Discharge: Within 24 hours
Subjective/Interval History
-
Date of Service: September 19, 2024
Patient continues to complain about weakness and being anxious about her condition. Outpatient psychiatric consult and continuation of physical therapy was discussed and patient was agreeable with the plan.
Objective Data
-
Labs:
Laboratory Results
09/19/24
07:14
WBC 13.1 H
Hgb 11.6 L
Hct 34.2 L
Plt Count 311
Sodium 136
Potassium 3.9
Chloride 103
Carbon Dioxide 29
BUN 13
Creatinine 0.8
Glucose 88
Calcium 9.4
Vital Signs:
Vital Signs
Temp Pulse Resp BP Pulse Ox
98.0 F 86 16 91/55 98
09/19/24 11:30 09/19/24 12:56 09/19/24 11:30 09/19/24 12:56 09/19/24 14:31
I&O
09/18/24 09/19/24 09/20/24
06:59 06:59 06:59
Intake Total 480 / 480 960 / 960
Balance 480 / 480 960 / 960
Review of Systems
-
History Source: Patient
Constitutional: Reports No Appetite and Weakness
EENT: Reports No Symptoms Reported
Respiratory: Reports Other (No cough, trouble breathing or wheezing noted)
Cardiac: Reports Other (Denies chest pain, palpitations, syncope)
Abdomen/GI: Reports Constipated and Other (Denies vomiting, diarrhea, pain)
Genitourinary: Reports Frequency (chronic), Incontinence and Other (Denies dysuria, difficulty voiding, dark urine or discharge.)
Neuro: Reports Weakness and Other ((+) peripheral neuropathy)
Hematologic / Lymphatic: Reports Other (Denies bleeding)
Physical Exam
-
General: Well Developed, No Apparent Distress and Conversant
HEENT: Normocephalic and Atraumatic
Respiratory: Clear to Auscultation and Non Labored Respirations
Cardiac: Regular Rhythm and S1/S2
Breast: Deferred by me
GI: Soft, Nontender and Other (hypoactive bowel sounds)
Rectal: Deferred by Provider
Musculoskeletal: No Edema
Skin: Warm and Other (please refer to assessment for complete skin check notes)
Neuro: AO x 3, No Motor Deficits and No Sensory Deficits
Psych: Anxious
[2024-09-19] MEDS: LIPITOR 80 MG PO (17:50)
[2024-09-19] MEDS: LEXAPRO 20 MG PO (17:50)
[2024-09-19] MEDS: REMERON 15 MG PO (21:17)
[2024-09-20] MEDS: PERCOCET 5/325 1 TABLET PO ×3 (00:34→16:35)
[2024-09-20 03:29] VITALS: BP 111/59
[2024-09-20 07:15] VITALS: BP 92/55
[2024-09-20 08:27] LABS: Hematocrit 32.4 % (37.0-47.0); Hemoglobin 10.9 g/dL (12.0-16.0); Mean Corp Hgb Conc. 33.6 g/dL (33.0-37.0); Mean Corpuscular Volume 96.7 fL (81.0-99.0); Platelet Count 283 10^3/uL (130-400); Red Cell Dist. Width 13.8 % (11.5-14.5)
[2024-09-20 08:51] LABS: Blood Urea Nitrogen 15 mg/dl (7-17); Calcium 8.6 mg/dl (8.4-10.2); Carbon Dioxide 27 mmol/L (22-30); Chloride 109 mmol/L (98-107); Estimated Creatinine Clearance 45 ml/min; Glucose 84 mg/dl (70-99); Potassium 3.8 mmol/L (3.5-5.1); Sodium 141 mmol/L (135-145); eGFR > 60.00
[2024-09-20] MEDS: DULCOLAX 10 MG RECTAL (10:46)
[2024-09-20] MEDS: MIRALAX 17 GRAMS PO (11:21)
[2024-09-20] MEDS: ZETIA 10 MG PO (11:22)
[2024-09-20] MEDS: SENOKOT-S 1 TABLET PO (11:23)
[2024-09-20] MEDS: PROTONIX 40 MG PO (11:23)
[2024-09-20] MEDS: OSCAL 500 + D 500 MG PO (11:24)
[2024-09-20] MEDS: FOLVITE 1 MG PO (11:24)
[2024-09-20] MEDS: VITAMIN B-12 100 MCG PO (11:24)
[2024-09-20] MEDS: ASPIR LOW (ENTERIC COATED) 81 MG PO (11:24)
--- NOTE | 2024-09-20 11:24 | W.PN.HOSP.TC ---
Addendum entered and electronically signed by Frank Concepcion MD 09/20/24 15:21:
Orthostatic hypotension, no further symptomatic
Encourage compression stockings abdominal binder
Started on midodrine, will increase dose
D-dimer high CT chest was completed no evidence of PE
2D echocardiogram completed EF 6065%, no obvious LVH, no regional wall motion abnormalities
EKG sinus rhythm with PACs first-degree AV block
Back pain, chronic issue that has been ongoing
Left shoulder arthroplasty
Continue analgesics
Anxiety/Depression
DC trazadone
Continue wellbutrin xl
Start remeron 15mg HS (antidepressant and appetite stimulant)
Outpatient psych follow up
Hypotensive, resolved after IVF
Leukocytosis, resolved
Constipation, resolved after bowel reg/suppository
CVA
Continue statin aspirin
DC to Snf when bed available
More than 30 minutes spent in discharge including
Final examination of the patient
Summarizing hospital stay
Instructions for continuing care to all relevant caregivers
Preparation of discharge records, prescriptions, and referral forms
Total time spent (in minutes): 33min
Original Note:
Today's Communication/Plan
-
Confirm SNIF status
Give Dulcolax 10mg rectal for constipation
Continue monitoring for orthostatic blood pressure
PT and Psychologic as outpatient consult
Dermatologic consult with established Snow G[employer]er as outpatient
Assessment / Plan
Assessment / Plan
83 yrs old F with k/h/o Left side Shoulder arthroplasty, CVA presented with dizziness, weakness
# Weakness, dizziness:
Normotensive today: 111/59
To consider dehydration vs. infectious process
Patient using abdominal binder and compression stockings to improve preload
Monitor for signs of infection.
PT follows every other day and recommends SNF rehab when medically stable.
PT referral as outpatient. Patient has been advised.
Fall precaution
SNIF referral has been started. Estimate transfer request today.
Added Boost TID with normal diet.
Increase Midodrine dose from 5 to 7.5
Past pertinent studies:
Patient electrolytes, Renal function tests, cortisol 10.4, TSH =1.96 are within normal limits which rules out [place]'s disease, no recent infection induced,
Total protein, albumin were low
D- Dimer 2.37 (H) however
CT CHEST IMPRESSION on 09/15/24:
1. No evidence of pulmonary embolism.
2. Bilateral lower lobe dependent subsegmental atelectasis. Mild subpleural fibrotic change.
3. Moderate to severe coronary artery calcifications.
currently patient blood pressure is improving with iv fluids.
Echocardiogram (09/17/24)- normal-appearing LV size and function with no obvious regional wall motion abnormalities.
LVEF is 60-65% by visual estimation. No obvious LVH.
Normal appearing RV size and function.
Mild to moderate mitral stenosis.
Compared to prior from October 05, 2023, no significant change.
#Leukocytosis
WBC 13.1H today, previous day 9.9
-CT chest (09/19/2024): Peripheral nodular densities within the left upper lung, corresponding to peripheral scarring seen on recent CT examination. The lungs appear otherwise clear. Moderate to large amount of gaseous distention of the visualized
stomach
Heart is displaced into the right side of the chest, stable.--patient rotated position.
Patient has urinary incontinence and frequency, noted to not be a new symptom. No dysuria, discharge, dark urine noted.
Skin check:
Scalp: (+) psoriasis localized in the scalp
Head: (+) Seborrheic Keratosis in right temporal lobe
Neck: (+) bruise on left lateral inferior neck from post surgery,
Chest: unremarkable
Back: (-) pressure ulcers, (+) 1 cm, nontender, movable, rubbery nodule on left, lumbar region
Upper Extremities: (+) well healing incision, no swelling or pain noted at the site
Lower Extremities: (+) Seborrheic Keratosis in left anterior thigh. (+) solar lentigo
(+) tenderness, generalized fissuring and overlying scales on bilateral lower leg, (+)well demarcated, non-erythematous, smooth, plaque in the left anterior lower leg, (+) lichenified skin medial leg.
Feet: (+) tinea pedis with red crust evident of wound healing
Skin check seemingly unremarkable for skin infection possibly causing the leukocytosis.
Discuss daily foot check
Continue monitoring for pressure ulcers.
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
Follow with PCP or Dermatology for back nodule, to consider Lipoma
#Constipation
7 days history of no stool�
Started on miralax 17 gram po, Senokot 1 tablet on tuesday
Given Dulcolax 10mg rectal
#Loss of appetite
Continue Boost TID with meals.
Start Mirtazapine 15mg
# Left shoulder Arthroplasty:
POST OP analgesic patient was taking which includes hydrocodone- acetaminophen
Well healing wound, no pain or complaints noted, but limiting patient's ability to use hemiwalker.
# Anxiety:
Patient does not want to eat and verbalized that she feels very weak and mentions that she feel anxious about her condition.
Stop Trazodone, Start Mirtazapine 15 mg
Psychiatric referral as outpatient
#Cerebro vascular accident :
2023: Brain MRI: Atrophy. Chronic microvascular white matter ischemic disease.
2022 Brain MRI: Small acute nonhemorrhagic infarct in the left centrum semiovale measuring 3 mm.
Patient is on Aspirin 81 mg PO, Atorvastatin 80 mg PO for her chronic CVA.
CODE: FULL
Disposition: Home with Homecare.
DVT prophylaxis: SCD
Anticipated Discharge: Within 24 hours
Subjective/Interval History
-
Date of Service: September 20, 2024
Patient continues to have no bowel movement. She continues to feel weak, but is trying to eat more.
Objective Data
-
Labs:
Laboratory Results
09/20/24
07:16
WBC 9.0
Hgb 10.9 L
Hct 32.4 L
Plt Count 283
Sodium 141
Potassium 3.8
Chloride 109 H
Carbon Dioxide 27
BUN 15
Creatinine 0.8
Glucose 84
Calcium 8.6
Vital Signs:
Vital Signs
Temp Pulse Resp BP Pulse Ox
98 F 77 18 92/55 98
09/20/24 07:15 09/20/24 07:15 09/20/24 07:15 09/20/24 07:15 09/20/24 07:15
I&O
09/19/24 09/20/24 09/21/24
06:59 06:59 06:59
Intake Total 960 / 960 1180 / 1180
Balance 960 / 960 1180 / 1180
Review of Systems
-
History Source: Patient
Constitutional: Reports No Appetite and Weakness
EENT: Reports No Symptoms Reported
Respiratory: Reports Other (No cough, trouble breathing or wheezing noted)
Cardiac: Reports Other (Denies chest pain, palpitations, syncope)
Abdomen/GI: Reports Constipated and Other (Denies vomiting, diarrhea, pain)
Genitourinary: Reports Frequency (chronic), Incontinence and Other (Denies dysuria, difficulty voiding, dark urine or discharge.)
Musculoskeletal: Reports Other ((+) chronic back pain)
Neuro: Reports Weakness and Other ((+) peripheral neuropathy)
Hematologic / Lymphatic: Reports Other (Denies bleeding)
Physical Exam
-
General: Well Developed, No Apparent Distress and Conversant
HEENT: Normocephalic and Atraumatic
Respiratory: Clear to Auscultation and Non Labored Respirations
Cardiac: Regular Rhythm and S1/S2
Breast: Deferred by me
GI: Soft, Nontender and Other (hypoactive bowel sounds)
Rectal: Deferred by Provider
Genito-urinary: Clear Urine
Musculoskeletal: No Edema and Other ((+) 1 cm, nontender, movable, rubbery, nodule on left, lumbar region)
Skin: Warm and Other (please refer to assessment for complete skin check notes)
Neuro: AO x 3, No Motor Deficits and No Sensory Deficits
Psych: Anxious
[2024-09-20] MEDS: VITAMIN D3 (cholecalciferol) 25 MCG PO (11:25)
--- NOTE | 2024-09-20 12:21 | CM ---
creative project manager reviewed patient's chart and met with patient and plan is for skilled placement, referral sent to [facility], and patient has been accepted at [facility].
Plan; Skilled placement at [facility] skilled
Report [phone]
fax [phone]
[2024-09-20] MEDS: WELLBUTRIN XL (24 hour extended release) 150 MG PO (13:07)
[2024-09-20 15:10] VITALS: BP 101/56
[2024-09-20] MEDS: LIPITOR 80 MG PO (16:36)
[2024-09-20] MEDS: LEXAPRO 20 MG PO (16:36)
--- NOTE | 2024-09-20 18:23 | W.DCSUMMARY ---
Discharge Summary
Discharge Data
Date of Admission: 09/17/24
Date of Discharge: 09/21/24
-
Pending Results: No
Hospital Course
Discharging Physician : Tory Muñoz
Disposition : [facility] ([facility])
Primary care physician : Dr. Frank Concepcion
Principal Discharge diagnosis : Orthostatic Hypertension
Chronic Discharge diagnosis : Psoariasis, Depression, History of CVA, Vertebral Compression Fracture, Gastroesophageal Reflux Disease
Hospital Course : Ms. Lewis is an 84 year old, female who has past medical history of 10 day s/p left side shoulder arthroplasty, CVA (2023), osteoporosis, chronic pain/multiple vertebral compression fractures on chronic oral opiates,
anxiety/Depression, gastroesophageal reflux disease, duodenal ulcers, malignant melanoma presents to the ER with 3 day history lightheadedness, and dizziness that worsens when she moves or tries to stand up. Recent post-surgery home blood pressure
monitoring fluctuates between 84/54 mmhg, compared to her usual blood pressure of 128/68. She also reports an associated feeling of difficulty getting warm. On the day of presentation, she felt so weak that she could not get up and had to call the
ambulance. Fluid administration and blood pressure monitoring was initiated. Laboratory tests were also ordered to evaluate thyroid function and potential cardiac anomalies. TSH was normal at 1.96, ECG showed sinus rhythm with premature atrial
complexes and 1st degree AV block, left axis deviation, troponin levels were normal, CBC showed normocytic anemia, creatinine levels were normal. The patient was admitted for further observation.� In light of the patient�s recent surgery, D-dimer
was also obtained which elevated at 2.37, follow up CT scan showed no evidence of pulmonary embolism. Moderate to severe coronary artery calcifications with bilateral lower lobe dependent subsegmental atelectasis and mild subpleural fibrotic change
noted. Follow up ECHO was ordered to assess vascular pathologies. Physical therapy was also ongoing and orthostatic blood pressure noted. No extrarenal losses noted; current symptoms and laboratory suggest no active GI bleeding. Echocardiogram
results showed LVEF of 60-65%, no obvious left ventricular hypertrophy, no regional wall motion abnormalities. Ongoing primary working diagnosis is Orthostatic hypotension possibly related to post surgery. Compression stockings and abdominal binder
applied to improve cardiac preload, physical therapy following up every other day, and fall precaution initiated, midodrine dose also increased from 5 to 7.5 for improved blood pressure control. Patient also noted a decrease in appetite, thus Boost
TID applied to normal diet, trazodone was discontinued and Mirtazapine (antidepressant and appetite stimulant) 15mg HS started.�Orthostatic blood pressure monitoring continued with physical therapy. Patient observation inpatient continued as
patient continues to have low blood pressure, report of weakness and feeling down. On hospital day #4, the patient's post-surgery dressings from left side should arthroplasty were removed with good wound healing observed. Patient's white blood cell
count was moderately elevated, but patient was noted to be asymptomatic. Complete skin check and chest x-ray obtained which was unremarkable for possible cause of infection. White blood cell count returned to normal value the next day. Patient also
noted to have constipation, thus she was given laxatives. Patient was deemed ready for discharge with outpatient follow up. [facility] referral initiated and while transfer request was pending, patient monitoring and care continued. Patient
was discharged in fair condition with instructions.
Important imaging findings :
Chest X Ray (09/19/2024): Peripheral nodular densities within the left upper lung, corresponding to peripheral scarring seen on recent CT examination. The lungs appear otherwise clear.
Moderate to large amount of gaseous distention of the visualized stomach
Heart is displaced into the right side of the chest, stable.
Chest CT (09/17/2024):
1. No evidence of pulmonary embolism.
2. Bilateral lower lobe dependent subsegmental atelectasis. Mild subpleural fibrotic change.
3. Moderate to severe coronary artery calcifications.
Echocardiogram (09/17/2024)
In limited views normal-appearing LV size and function with no obvious regional
wall motion abnormalities.
LVEF is 60-65% by visual estimation. No obvious LVH.
Normal appearing RV size and function.
Mild to moderate mitral stenosis
Limited interrogation of other valves.
Compared to prior from October 05, 2023, no significant change.
Procedure findings :
Discharge Plan
-
Patient Disposition: Half-Way/SNF
Discharge Diagnosis/Procedures: Orthostatic Hypotension, Psoariasis, History of CVA, Vertebral Compression Fracture, Gastroesophageal Reflux Disease
Condition: Fair
Diet: As tolerated
Additional Diets: add Boost TID with meal
Activity: As tolerated and With Walker
Driving Restrictions: As prior to admission
Bathing Restrictions: None
Other Services: PT
Referrals:
Psychiatry [Provider Group] - in two to four weeks
Neto Zamora DO [Family Provider, Family Practice] - in less than 1 week
Additional Discharge Medication Instructions: Continue with Abdominal Binder and Compression therapy. Continue with PT. Fall Precaution as prevention. Follow up with Dermatology at patient's convenience.
Prescriptions:
New
bupropion HCl 150 mg Tablet Extended Release 24 Hr
150 mg PO DAILY 30 Days Qty: 30 0RF
polyethylene glycol 3350 17 gram Powder In Packet
17 g PO DAILY Qty: 15 0RF
midodrine 5 mg Tablet
7.5 mg PO TID@0800,1300,1800 30 Days Qty: 90 0RF
mirtazapine 15 mg Tablet
15 mg PO HS 30 Days Qty: 30 0RF
Continued
cyanocobalamin (vitamin B-12) [Vitamin B-12] 100 mcg Tablet
100 mcg PO DAILY
calcium carbonate-vitamin D3 600 mg-5 mcg (200 unit) Tablet
1 tab PO DAILY
atorvastatin 80 mg Tablet
80 mg PO QPM Qty: 30 0RF
cholecalciferol (vitamin D3) [Vitamin D3] 25 mcg (1,000 unit) Tablet
25 mcg PO DAILY
pantoprazole [Protonix] 40 mg tablet,delayed release (DR/EC)
40 mg PO BID
ezetimibe 10 mg Tablet
10 mg PO DAILY
escitalopram oxalate [Lexapro] 20 mg Tablet
20 mg PO QPM
acetaminophen 500 mg tablet
1,000 mg PO QIDPRN PRN (Reason: mild pain)
folic acid 1 mg Tablet
1 mg PO DAILY
aspirin 81 mg Tablet,Delayed Release (Dr/Ec)
81 mg PO DAILY
Changed
hydrocodone-acetaminophen 10-325 mg tablet
0.5 tab PO TID Qty: 9 0RF
Discontinued
trazodone 50 mg Tablet
50 mg PO HSPRN PRN (Reason: sleep)
No Action
bupropion HCl 300 mg Tablet Extended Release 24 Hr
300 mg PO DAILY
Discharge Orders:
Discharge Patient (As Directed); Ordered 09/20/24
Ordered By: Tory Muñoz
Discharge Date and Time
Discharge Date/Time: 09/20/24 18:24
Print Language: BERMUDIAN
== END 2024-09-20 18:24 | DRG 312 ==
LOC: 4 WEST ACU 08:20
PROVIDERS: ADMITTING PHYSICIAN Internal Medicine; ATTENDING PHYSICIAN Hospitalist; EMERGENCY PHYSICIAN Student in an Organized Health Care Education/Training Program; FAMILY PHYSICIAN Family Medicine
DX: I95.1 Orthostatic hypotension (principal); M80.08XA Age-related osteoporosis with current pathological fracture, vertebra(e), initial encounter for fracture; Z68.1 Body mass index [BMI] 19.9 or less, adult; E44.1 Mild protein-calorie malnutrition; F41.9 Anxiety disorder, unspecified; G57.63 Lesion of plantar nerve, bilateral lower limbs; K21.9 Gastro-esophageal reflux disease without esophagitis; G89.29 Other chronic pain; F32.A Depression, unspecified; K59.00 Constipation, unspecified; R63.0 Anorexia; B35.3 Tinea pedis; I25.10 Atherosclerotic heart disease of native coronary artery without angina pectoris; I73.00 Raynaud's syndrome without gangrene; E78.00 Pure hypercholesterolemia, unspecified; Z79.82 Long term (current) use of aspirin; Z79.891 Long term (current) use of opiate analgesic; Z79.899 Other long term (current) drug therapy; Z86.73 Personal history of transient ischemic attack (TIA), and cerebral infarction without residual deficits; Z87.11 Personal history of peptic ulcer disease; Z87.891 Personal history of nicotine dependence; Z96.612 Presence of left artificial shoulder joint
CPT/HCPCS: 71045; 71275; 80048; 80053; 81003; 81015; 82533; 84443; 84484; 85025; 85027; 85379; 93005; 93306; 97163; 97167; 97530; 99284; Q9967

== ENCOUNTER → 2024-09-24 09:43 | Outpatient (REF) | payer OTHER, MEDICARE, SELFPAY ==
[2024-09-24 12:21] LABS: Hematocrit 34.4 % (37.0-47.0); Hemoglobin 11.2 g/dL (12.0-16.0); Mean Corp Hgb Conc. 32.6 g/dL (33.0-37.0); Mean Corpuscular Volume 98.9 fL (81.0-99.0); Nucleated Red Blood Cells % 0 %; Platelet Count 251 10^3/uL (130-400); Red Cell Dist. Width 13.8 % (11.5-14.5)
[2024-09-24 12:43] LABS: Blood Urea Nitrogen 16 mg/dl (7-17); Calcium 8.9 mg/dl (8.4-10.2); Carbon Dioxide 27 mmol/L (22-30); Chloride 105 mmol/L (98-107); Glucose 79 mg/dl (70-99); Potassium 4.3 mmol/L (3.5-5.1); Sodium 139 mmol/L (135-145); eGFR > 60.00
== END ==
LOC: OLABP 09:43
PROVIDERS: ATTENDING PHYSICIAN Family Medicine
DX: I10 Essential (primary) hypertension (principal); L40.0 Psoriasis vulgaris; I63.9 Cerebral infarction, unspecified
CPT/HCPCS: 36415; 80048; 85025